=== PATIENT | female | born 1950 | race African-American/Black ===

== ENCOUNTER 2018-08-20 18:28 | Inpatient (IN) | payer OTHER ==
--- OUTSIDE RECORDS SUMMARY | 2018-08-20 18:29 | XMS REPORT | Clinical Summary ---
:1950 Author Organization [facility] Address [address] [place] [address] Phone Care Team Providers Name Role Phone Unavailable Primary Care Provider Unavailable Allergies Active Allergy Reactions Severity Noted Date Comments [place] And Derivatives 07/25/2017 Penicillins Hives 07/25/2017 Current Medications Prescription Sig. Disp. Refills Start Date End Date Status amLODIPine (NORVASC) 5 Take 1 tablet 60 tablet 0 07/29/2017 07/29/2018 MG tablet (5 mg total) by mouth 2 (two) times daily. aspirin 81 MG EC Take 1 tablet 30 tablet 0 07/29/2017 07/29/2018 tablet (81 mg total) by mouth daily. atorvastatin (LIPITOR) Take 1 tablet 30 tablet 0 07/29/2017 07/29/2018 10 MG tablet (10 mg total) by mouth nightly. carvedilol (COREG) Take 1 tablet 60 tablet 0 07/29/2017 07/29/2018 6.25 MG tablet (6.25 mg total) by mouth 2 (two) times daily. cloNIDine HCl Take 1 tablet 30 tablet 0 07/29/2017 07/29/2018 (CATAPRES) 0.1 MG (0.1 mg total) tablet by mouth every 6 (six) hours as needed (for SBP greater than 160, or DBP greater than 100). hydrALAZINE Take 1 tablet 90 tablet 0 07/29/2017 07/29/2018 (APRESOLINE) 50 MG (50 mg total) tablet by mouth every 8 (eight) hours. losartan (COZAAR) 100 Take 1 tablet 30 tablet 0 07/29/2017 07/29/2018 MG tablet (100 mg total) by mouth daily. nicotine (NICODERM CQ) Place 1 patch 28 patch 0 07/29/2017 08/28/2017 14 mg/24 hr patch onto the skin daily as needed (only give is she ask for it.) for up to 30 days. spironolactone Take 1 tablet 30 tablet 0 07/29/2017 07/29/2018 (ALDACTONE) 25 MG (25 mg total) tablet by mouth daily. 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 Mild to moderate plaque within the carotid bulbs bilaterally. 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 CT Head-07/23/2017- No acute intracranial abnormality. Mild periventricular Chronic microvascular ischemic changes. Carotid Doppler-Both proximal internal carotid arteries demonstrate soft plaquing and diffuse intimal thickening. Bilateral Lower Doppler 07/23/2017 due to Bilateral leg edema and swelling-No evidence of left or right lower extremity deep venous thrombosis. Essential (primary) hypertension 07/26/2017 Noncompliance with medications 07/26/2017 Overview: Refused to take HTN medications in past at home. Right lower lobe pneumonia (HCC) 07/26/2017 Tobacco abuse 07/26/2017 Elevated troponin 07/26/2017 Overview: Trop was 0.05. Seen by [employer] Dr. Crissy Warren--thought to be related to CVA/pneumonia. EKG normal. Echo- trace mitral and tricuspid regurgitation, normal right ventricular systolic pressure. Type 2 diabetes mellitus with circulatory disorder, without long-term 2016 current use of insulin (HCC) Family History Medical History Relation Name Comments Parkinsonism Father Diabetes Mother Relation Name Status Comments Father Mother Social History Tobacco Use Types Packs/Day Years Used Date Current Every Day Smoker 1 50 Smokeless Tobacco: Current User Tobacco Cessation: Ready to Quit: No; Counseling Given: Yes Alcohol Use Drinks/Week oz/Week Comments No Sex Assigned at Date Recorded Not on file Last Filed Vital Signs Not on file Plan of Treatment Not on file Results Not on fileafter 08/19/2017
--- OUTSIDE RECORDS SUMMARY | 2018-08-20 18:30 | XMS REPORT ---
:1950 Author Organization [facility] Address [address] [place] [address] Care Team Providers Name Role Phone KELLY AVELAR Unavailable Unavailable Problems This patient has no known problems. Allergies, Adverse Reactions, Alerts This patient has no known allergies or adverse reactions. Medications This patient has no known medications. Results Test Description Test Time Test Comments Text Results Atomic Results Result Comments POCT-GLUCOSE METER 2017-07-28 16:59:00 Test Item Value Reference Range Comments POC-GLUCOSE METER (BEAKER) (test 138 mg/dL 70-110 TESTED AT [facility] [address] [facility] [address] hjbq=2525) [facility] [address] POCT-GLUCOSE [id number] 11:48:00 Test Item Value Reference Range Comments POC-GLUCOSE METER (BEAKER) 114 mg/dL 70-110 TESTED AT [facility] [address] [facility] (test iulk=7870) WAY [facility] [address] POCT-GLUCOSE [id number] 20:55:00 Test Item Value Reference Range Comments POC-GLUCOSE METER (BEAKER) 206 mg/dL 70-110 TESTED AT [facility] [address] [facility] (test rdxp=1964) [facility] [address] POCT-GLUCOSE [id number] 17:00:00 Test Item Value Reference Range Comments POC-GLUCOSE METER (BEAKER) 270 mg/dL 70-110 TESTED AT [facility] [address] [facility] (test fkim=4395) [facility] [address] POCT-GLUCOSE [id number] 11:43:00 Test Item Value Reference Range Comments POC-GLUCOSE METER (BEAKER) 145 mg/dL 70-110 TESTED AT [facility] [address] [facility] (test xziw=1322) [facility] [address] CREATINE KINASE (CK), TOTAL AND [id number] 05:59:00 Test Item Value Reference Range Comments CREATINE KINASE TOTAL (BEAKER) (test lorh=523) 81 U/L 29-168 CREATINE KINASE-MB (BEAKER) (test fqfx=450) 1.6 ng/mL 0.0-4.9 CREATINE KINASE-MB INDEX (BEAKER) (test rbrh=821) 2.0 % CK-MB Reference Range:<5 Normal5-10 Borderline>10 AbnormalTROPONIN [id number] 05:59:00 Test Item Value Reference Range Comments TROPONIN I (BEAKER) (test bstm=972) 0.05 ng/mL 0.00-0.15 Troponin I (TnI) levels must be interpreted in the context of the presenting symptoms and the clinical findings. Elevated TnI levels indicate myocardial damage, but are not specific for ischemic heart disease. Elevated TnI levels are seen in patients with other cardiac conditions (including myocarditis and congestive heart failure), and slight TnI elevations occur in patients with other conditions, including sepsis, renal failure, acidosis, acute neurological disease, and persistent tachyarrhythmia.COMPREHENSIVE METABOLIC [id number] 05:50:00 Test Item Value Reference Range Comments TOTAL PROTEIN (BEAKER) 7.1 gm/dL 6.0-8.5 (test ponh=081) ALBUMIN (BEAKER) (test 3.4 g/dL 3.5-5.0 rnis=0439) ALKALINE PHOSPHATASE 69 U/L 30-115 (BEAKER) (test xoyj=741) BILIRUBIN TOTAL (BEAKER) 0.8 mg/dL 0.1-1.3 (test ycjn=095) SODIUM (BEAKER) (test 142 meq/L 135-148 alev=022) POTASSIUM (BEAKER) (test 3.4 meq/L 3.5-5.5 gvhy=672) CHLORIDE (BEAKER) (test 106 meq/L 98-106 kefg=124) CO2 (BEAKER) (test 24 meq/L 20-31 rvwp=027) BLOOD UREA NITROGEN 14 mg/dL 10-26 (BEAKER) (test bpwi=918) CREATININE (BEAKER) (test 1.01 mg/dL 0.50-1.20 wlms=947) GLUCOSE RANDOM (BEAKER) 135 mg/dL 70-110 (test dncl=281) CALCIUM (BEAKER) (test 9.0 mg/dL 8.5-10.5 fszd=571) AST (SGOT) (BEAKER) (test 13 U/L 5-40 kwbo=986) ALT (SGPT) (BEAKER) (test 19 U/L 6-50 yfoo=148) EGFR (BEAKER) (test mL/min/1.73 sq m INSUFFICIENT CLINICAL DATA ckeb=3030) TO CALCULATE ESTIMATED GFR. [id number] 05:49:00 Test Item Value Reference Range Comments MAGNESIUM (BEAKER) (test savh=743) 1.5 mg/dL 1.5-3.0 POCT-GLUCOSE [id number] 05:24:00 Test Item Value Reference Range Comments POC-GLUCOSE METER (BEAKER) 148 mg/dL 70-110 TESTED AT [facility] [address] [facility] (test cfdb=4621) [facility] [address] CBC W/PLT COUNT & AUTO [id number] 05:23:00 Test Item Value Reference Range Comments WHITE BLOOD CELL COUNT (BEAKER) (test vtna=205) 8.9 K/ L 4.0-10.0 RED BLOOD CELL COUNT (BEAKER) (test apdy=777) 4.46 M/ L 4.00-5.00 HEMOGLOBIN (BEAKER) (test irll=512) 12.8 GM/DL 12.0-15.0 HEMATOCRIT (BEAKER) (test bhjr=181) 38.5 % 36.0-45.0 MEAN CORPUSCULAR VOLUME (BEAKER) (test lhnu=611) 86.3 fL 82.0-99.0 MEAN CORPUSCULAR HEMOGLOBIN (BEAKER) (test 28.6 pg 27.0-33.0 hejl=522) MEAN CORPUSCULAR HEMOGLOBIN CONC (BEAKER) (test 33.2 GM/DL 32.0-36.0 utwo=293) RED CELL DISTRIBUTION WIDTH (BEAKER) (test 13.2 % 12.0-15.0 uumq=799) PLATELET COUNT (BEAKER) (test bznl=657) 243 K/CU MM 150-430 MEAN PLATELET VOLUME (BEAKER) (test ddlg=931) 9.6 fL 6.5-10.5 NUCLEATED RED BLOOD CELLS (BEAKER) (test 0 /100 WBC 0-0 ydjx=540) NEUTROPHILS RELATIVE PERCENT (BEAKER) (test 65 % vgaa=606) LYMPHOCYTES RELATIVE PERCENT (BEAKER) (test 23 % iyph=435) MONOCYTES RELATIVE PERCENT (BEAKER) (test 10 % otqb=234) EOSINOPHILS RELATIVE PERCENT (BEAKER) (test 2 % blwu=690) BASOPHILS RELATIVE PERCENT (BEAKER) (test 1 % ijkq=402) NEUTROPHILS ABSOLUTE COUNT (BEAKER) (test 5.80 K/ L 1.80-8.00 vqki=372) LYMPHOCYTES ABSOLUTE COUNT (BEAKER) (test 2.00 K/ L 1.48-4.50 qogu=846) MONOCYTES ABSOLUTE COUNT (BEAKER) (test 0.90 K/ L 0.00-1.30 iqmg=009) EOSINOPHILS ABSOLUTE COUNT (BEAKER) (test 0.10 K/ L 0.00-0.50 jltr=584) BASOPHILS ABSOLUTE COUNT (BEAKER) (test 0.10 K/ L 0.00-0.20 cfyw=703) POCT-GLUCOSE [id number] 21:22:00 Test Item Value Reference Range Comments POC-GLUCOSE METER (BEAKER) 127 mg/dL 70-110 TESTED AT [address] (test rggy=5969) [facility] [address] POCT-GLUCOSE [id number] 15:57:00 Test Item Value Reference Range Comments POC-GLUCOSE METER (BEAKER) 156 mg/dL 70-110 TESTED AT [address] (test phhj=6713) [facility] [address] POCT-GLUCOSE [id number] 12:06:00 Test Item Value Reference Range Comments POC-GLUCOSE METER (BEAKER) 109 mg/dL 70-110 TESTED AT [address] (test kkvu=4197) [facility] [address] HEMOGLOBIN [id number] 11:00:00 Test Item Value Reference Range Comments HEMOGLOBIN A1C (BEAKER) (test zoqy=298) 6.6 % 4.3-6.1 COMPREHENSIVE METABOLIC [id number] 04:45:00 Test Item Value Reference Range Comments TOTAL PROTEIN (BEAKER) 6.7 gm/dL 6.0-8.5 (test xkwj=310) ALBUMIN (BEAKER) (test 3.2 g/dL 3.5-5.0 yzbw=7813) ALKALINE PHOSPHATASE 67 U/L 30-115 (BEAKER) (test rfzt=809) BILIRUBIN TOTAL (BEAKER) 0.5 mg/dL 0.1-1.3 (test ihny=276) SODIUM (BEAKER) (test 141 meq/L 135-148 ancn=919) POTASSIUM (BEAKER) (test 3.1 meq/L 3.5-5.5 ufmx=129) CHLORIDE (BEAKER) (test 105 meq/L 98-106 qulo=686) CO2 (BEAKER) (test 25 meq/L 20-31 gvgk=825) BLOOD UREA NITROGEN 17 mg/dL 10-26 (BEAKER) (test nnpa=244) CREATININE (BEAKER) (test 1.12 mg/dL 0.50-1.20 lylb=204) GLUCOSE RANDOM (BEAKER) 117 mg/dL 70-110 (test rpxr=095) CALCIUM (BEAKER) (test 9.1 mg/dL 8.5-10.5 dyxb=895) AST (SGOT) (BEAKER) (test 11 U/L 5-40 qbng=045) ALT (SGPT) (BEAKER) (test 17 U/L 6-50 uxma=177) EGFR (BEAKER) (test mL/min/1.73 sq m INSUFFICIENT CLINICAL DATA kjmt=6147) TO CALCULATE ESTIMATED GFR. [id number] 04:43:00 Test Item Value Reference Range Comments MAGNESIUM (BEAKER) (test ojtf=932) 1.7 mg/dL 1.5-3.0 CBC W/PLT COUNT & AUTO [id number] 04:16:00 Test Item Value Reference Range Comments WHITE BLOOD CELL COUNT (BEAKER) (test ytna=638) 8.5 K/ L 4.0-10.0 RED BLOOD CELL COUNT (BEAKER) (test qlys=885) 4.49 M/ L 4.00-5.00 HEMOGLOBIN (BEAKER) (test mkbg=400) 12.8 GM/DL 12.0-15.0 HEMATOCRIT (BEAKER) (test drax=555) 38.8 % 36.0-45.0 MEAN CORPUSCULAR VOLUME (BEAKER) (test oreu=111) 86.5 fL 82.0-99.0 MEAN CORPUSCULAR HEMOGLOBIN (BEAKER) (test 28.4 pg 27.0-33.0 gmok=440) MEAN CORPUSCULAR HEMOGLOBIN CONC (BEAKER) (test 32.9 GM/DL 32.0-36.0 ftsr=959) RED CELL DISTRIBUTION WIDTH (BEAKER) (test 12.9 % 12.0-15.0 tfev=744) PLATELET COUNT (BEAKER) (test qkju=701) 232 K/CU MM 150-430 MEAN PLATELET VOLUME (BEAKER) (test ulsr=362) 9.5 fL 6.5-10.5 NUCLEATED RED BLOOD CELLS (BEAKER) (test 0 /100 WBC 0-0 rmyj=299) NEUTROPHILS RELATIVE PERCENT (BEAKER) (test 56 % qrfm=153) LYMPHOCYTES RELATIVE PERCENT (BEAKER) (test 30 % oetq=952) MONOCYTES RELATIVE PERCENT (BEAKER) (test 10 % ilwq=831) EOSINOPHILS RELATIVE PERCENT (BEAKER) (test 3 % rltg=699) BASOPHILS RELATIVE PERCENT (BEAKER) (test 1 % nbaq=373) NEUTROPHILS ABSOLUTE COUNT (BEAKER) (test 4.70 K/ L 1.80-8.00 kbwr=620) LYMPHOCYTES ABSOLUTE COUNT (BEAKER) (test 2.60 K/ L 1.48-4.50 galy=587) MONOCYTES ABSOLUTE COUNT (BEAKER) (test 0.80 K/ L 0.00-1.30 hvbd=020) EOSINOPHILS ABSOLUTE COUNT (BEAKER) (test 0.20 K/ L 0.00-0.50 nsno=380) BASOPHILS ABSOLUTE COUNT (BEAKER) (test 0.10 K/ L 0.00-0.20 nhwl=835)
[2018-08-20 19:11] LABS: Absolute Lymphocytes (CBC) 2.4 K/uL (0.7-4.9); Absolute Monocytes 0.5 K/uL (0.1-1.3); Absolute Neutrophil 2.9 K/uL (1.8-8.0); Basophils % 1.5 % (0-1.3); Eosinophils % 2.2 % (0-4.4); Hematocrit 43.1 % (36.0-45.0); Lymphocytes % 39.8 % (15.3-44.8); MCH 28.6 pg (27.0-35.0); MCV 85.6 fL (80-100); MPV 10.3 fL (7.6-11.3); Monocytes % 8.7 % (3.3-12.3); RBC Red Blood Cell Count 5.04 M/uL (3.86-4.86)
[2018-08-20 19:13] LABS: Protime INR 1.18
[2018-08-20 19:30] LABS: Albumin 3.3 g/dL (3.4-5.0); Bilirubin Direct 0.5 mg/dL (0-0.2); Magnesium 1.9 mg/dL (1.8-2.4); Potassium 3.1 mmol/L (3.5-5.1); Protein, Total 6.9 g/dL (6.4-8.2); Troponin (Emerg Dept Use Only) 0.06 ng/mL (0.0-0.045)
--- NOTE | 2018-08-20 19:35 | RAD REPORT ---
EXAM DESCRIPTION: Meli Single View08/20/2018 7:00 pm CLINICAL HISTORY: Shortness of breath COMPARISON: July 2017 FINDINGS: The lungs appear clear of acute infiltrate. The heart is borderline enlarged. Postsurgica l changes involve the chest IMPRESSION: No acute abnormalities displayed
[2018-08-20] MEDS ORDERED: FUROSEMIDE 40 MG/4 ML VIAL ONE (19:58)
[2018-08-20] MEDS ORDERED: ASPIRIN 81 MG CHEWABLE TABLET ONE (19:58)
--- NOTE | 2018-08-20 20:19 | RAD REPORT ---
EXAM DESCRIPTION: USExtrem Venous W Compress Bil08/20/2018 7:44 pm CLINICAL HISTORY: Bilateral leg swelling COMPARISON: 2017 FINDINGS: The common femoral, superficial femoral, popliteal and posterior tibial veins bilaterally are compressible and demonstrate augmentation. Doppler demonstrates good flow. IMPRESSION: No evidence of deep venous thrombosis involving either lower extremity.
--- NOTE | 2018-08-20 20:20 | EDPHYS ---
Physician Documentation [facility] Name: Amber Fischer Age: 68 yrs Sex: Female : 1950 Arrival Date: 08/20/2018 Time: 18:29 Bed 13 Private MD: Jj Woodward F ED Physician Marty Veliz HPI: 08/20 18:55 This 68 yrs old Black Female presents to ER via Wheelchair with complaints of Foot cp Swelling. 18:55 The patient has shortness of breath with light activity. cp 18:55 Onset: The symptoms/episode began/occurred gradually. Duration: The symptoms are cp continuous, and are steadily getting worse. Associated signs and symptoms: Pertinent positives: productive cough, bilateral lower extremity swelling, Pertinent negatives: chest pain, diaphoresis, fever. Severity of symptoms: in the emergency department the symptoms are unchanged. Patient reports not taking prescribed spironolactone for past several months but did take a dose today. Historical: - Allergies: 18:30 PENICILLINS; aa5 - Home Meds: 19:19 aspirin 81 mg Oral chew 1 tab once daily [Active]; Spironolactone Oral [Active]; tl2 - PMHx: 18:30 BORN WITH A HEART DEFECT; lumbar fracture; CVA; Hypertension; Fluid retention; aa5 - PSHx: 18:30 Heart Surgery; aa5 - Immunization history:: Adult Immunizations up to date. - Ebola Screening: : No symptoms or risks identified at this time. - Social history:: Smoking status: Smoking status: unknown. ROS: 19:00 Constitutional: Negative for body aches, chills, fever, poor PO intake. cp 19:00 Eyes: Negative for injury, pain, redness, and discharge. cp 19:00 ENT: Negative for drainage from ear(s), ear pain, sore throat, difficulty swallowing, difficulty handling secretions. 19:00 Cardiovascular: Positive for edema, Negative for chest pain, palpitations. 19:00 Respiratory: Positive for cough, with white sputum, dyspnea on exertion, shortness of breath, Negative for wheezing. 19:00 Abdomen/GI: Negative for abdominal pain, nausea, vomiting, and diarrhea, constipation, black/tarry stool, rectal bleeding. 19:00 Skin: Negative for cellulitis, rash. 19:00 Neuro: Negative for altered mental status, dizziness, syncope, near syncope, weakness. 19:00 All other systems are negative. Exam: 19:05 Constitutional: The patient appears in no acute distress, alert, awake, cp non-diaphoretic, non-toxic, well developed, well nourished. 19:05 Head/Face: Normocephalic, atraumatic. Eyes: Pupils equal round and reactive to light, cp extra-ocular motions intact. Lids and lashes normal. Conjunctiva and sclera are non-icteric and not injected. Cornea within normal limits. Periorbital areas with no swelling, redness, or edema. ENT: Nares patent. No nasal discharge, no septal abnormalities noted. Tympanic membranes are normal and external auditory canals are clear. Oropharynx with no redness, swelling, or masses, exudates, or evidence of obstruction, uvula midline. Mucous membranes moist. Chest/axilla: Normal chest wall appearance and motion. Nontender with no deformity. No lesions are appreciated. 19:05 Cardiovascular: Rate: normal, Rhythm: regular, Pulses: Pulses are 2+ in right radial artery and left radial artery. Edema: pedal edema, that is moderate, ankle edema, that is moderate, JVD: is not appreciated. 19:05 Respiratory: the patient does not display signs of respiratory distress, Respirations: labored breathing, is not present, intercostal retractions, are absent, splinting, is not noted, tachypnea, is not appreciated, Breath sounds: are clear throughout, no stridor, no wheezing, decreased breath sounds, that are mild, are located in both bases. 19:05 Abdomen/GI: Inspection: abdomen appears normal, Palpation: abdomen is soft and non-tender, in all quadrants. 19:05 Skin: cellulitis, is not appreciated, no rash present. 19:05 Neuro: Orientation: to person, place \T\ time. Mentation: lucid, able to follow commands, Cerebellar function: is grossly normal, Motor: moves all fours, strength is normal, Sensation: no obvious gross deficits. 19:15 ECG was reviewed by the Attending Physician. cp Vital Signs: 18:32 BP 197 / 84; Pulse 76; Resp 20 S; Pulse Ox 100% on R/A; aa5 20:43 BP 193 / 95; Pulse 66; Resp 18; Pulse Ox 99% on R/A; tl2 21:53 BP 186 / 89; Pulse 72; Resp 18; Pulse Ox 98% on R/A; tl2 MDM: 18:40 Patient medically screened. cp 19:00 Differential diagnosis: CHF exacerbation, Chronic Obstructive Pulmonary Disease cp pulmonary edema, Pulmonary Embolism Unstable Angina DVT. 20:00 Data reviewed: vital signs, nurses notes, lab test result(s), EKG, radiologic studies, cp plain films, ultrasound, and as a result, I will admit patient. 20:04 Physician consultation: Jj Woodward MD was called at 20:05, was contacted at 20:05, regarding admission, to the telemetry unit. patient's condition. 08/20 18:50 Order name: Basic Metabolic Panel; Complete Time: 19:43 cp 08/20 20:11 Interpretation: Normal except: K 3.1; CL 109; GLUC 133; CRE 1.50; GFR 42. cp 08/20 18:50 Order name: CBC with Diff; Complete Time: 19:43 cp 08/20 20:32 Interpretation: Normal except: RBC 5.04; RDW 15.3; BASO% 1.5. cp 08/20 18:50 Order name: LFT's; Complete Time: 19:43 cp 08/20 20:32 Interpretation: Normal except: BILID 0.5; ALB 3.3; GLOB 3.6; A/G 0.9. cp 08/20 18:50 Order name: Magnesium; Complete Time: 19:43 cp 08/20 18:50 Order name: NT PRO-BNP; Complete Time: 19:43 cp 08/20 20:11 Interpretation: Abnormal: NT PRO-BNP 46906. cp 08/20 18:50 Order name: PT-INR; Complete Time: 19:43 cp 08/20 18:50 Order name: Troponin (emerg Dept Use Only); Complete Time: 19:43 cp 08/20 20:33 Interpretation: Abnormal: TROPED 0.06. cp 08/20 20:26 Order name: Basic Metabolic Panel EDMS 08/20 20:26 Order name: Basic Metabolic Panel EDMS 08/20 20:26 Order name: CBC with Automated Diff EDMS 08/20 20:26 Order name: CBC with Automated Diff EDMS 08/20 20:26 Order name: NT PRO-BNP EDMS 08/20 20:26 Order name: NT PRO-BNP EDMS 08/20 20:26 Order name: Troponin I EDMS 08/20 18:50 Order name: US Extremity Venous W Compression [place]; Complete Time: 20:32 cp 08/20 20:32 Interpretation: Report reviewed. cp 08/20 18:50 Order name: XRAY Chest (1 view); Complete Time: 19:43 cp 08/20 18:50 Order name: EKG; Complete Time: 18:51 cp 08/20 18:50 Order name: Cardiac monitoring; Complete Time: 19:15 cp 08/20 18:50 Order name: EKG - Nurse/Tech; Complete Time: 19:15 cp 08/20 18:50 Order name: IV Saline Lock; Complete Time: 19:15 cp 08/20 18:50 Order name: Labs collected and sent; Complete Time: 19:15 cp 08/20 20:26 Order name: Low Sodium EDTN 08/20 20:26 Order name: EKG Electrocardiogram EDTN 08/20 20:26 Order name: EKG Electrocardiogram EDTN 08/20 20:26 Order name: Troponin I EDTN 08/20 20:26 Order name: Troponin I EDTN 08/20 18:50 Order name: O2 Per Protocol; Complete Time: 19:15 cp 08/20 18:50 Order name: O2 Sat Monitoring; Complete Time: 19:15 cp EC:15 Rate is 63 beats/min. IL interval is normal. QRS interval is normal. QT interval is cp normal. T waves are Inverted in leads I, aVL, V4, V5, V6. Interpreted by me. Reviewed by me. Administered Medications: 20:17 Drug: Aspirin Chewable Tablet 324 mg Route: PO; tl2 21:54 Follow up: Response: No adverse reaction tl2 20:17 Drug: Lasix 40 mg Route: IVP; Site: right antecubital; tl2 21:54 Follow up: Response: No adverse reaction; Marked relief of symptoms tl2 20:34 Drug: Lovenox 40 mg Route: Sub-Q; Site: right lower abdomen; tl2 21:54 Follow up: Response: No adverse reaction tl2 20:35 Drug: Potassium Effervescent Tablet 50 mEq Route: PO; tl2 21:55 Follow up: Response: No adverse reaction tl2 Disposition: 08/21 09:21 Co-signature as Attending Physician, Marty Veliz MD I agree with the assessment and kdr plan of care. Disposition: 08/20/18 20:18 Hospitalization ordered by Jj Woodward for Observation. Preliminary diagnosis is Unspecified combined systolic (congestive) and diastolic (congestive) heart failure. - Bed requested for Telemetry/MedSurg (observation). - Status is Observation. tl2 - Condition is Stable. - Problem is an acute exacerbation. - Symptoms have improved. UTI on Admission? No Signatures: Dispatcher [employer] EDMS Cat Davis RN RN Marty De La Garza MD MD [facility] Vernell Manning RN RN aa5 Drake Chou PA PA Dipti Kelsey RN RN tl2 Corrections: (The following items were deleted from the chart) 08/20 21:04 20:18 Hospitalization Ordered by Jj Woodward MD for Observation. Preliminary kl diagnosis is Unspecified combined systolic (congestive) and diastolic (congestive) heart failure. Bed requested for Telemetry/MedSurg (observation). Status is Observation. Condition is Stable. Problem is an acute exacerbation. Symptoms have improved. UTI on Admission? No. cp 21:56 21:04 08/20/2018 20:18 Hospitalization Ordered by Jj Woodward MD for Observation. tl2 Preliminary diagnosis is Unspecified combined systolic (congestive) and diastolic (congestive) heart failure. Bed requested for Telemetry/MedSurg (observation). Status is Observation. Condition is Stable. Problem is an acute exacerbation. Symptoms have improved. UTI on Admission? No. kl
--- NOTE | 2018-08-20 20:20 | ER ---
Nurse's Notes [facility] Name: Amber Fischer Age: 68 yrs Sex: Female : 1950 Arrival Date: 08/20/2018 Time: 18:29 Bed 13 Private MD: Jj Woodward F Diagnosis: Unspecified combined systolic (congestive) and diastolic (congestive) heart failure Presentation: 08/20 18:30 Presenting complaint: Patient states: "I haven't taken my spironolactone since January and my legs started getting swollen yesterday". Pt states "I took a spironolactone pill right before coming in". Pt also reports SOB. 18:30 Transition of care: patient was not received from another setting of care. Onset of aa5 symptoms was 2017. Risk Assessment: Do you want to hurt yourself or someone else? Patient reports no desire to harm self or others. Initial Sepsis Screen: Does the patient meet any 2 criteria? No. Patient's initial sepsis screen is negative. Does the patient have a suspected source of infection? No. Patient's initial sepsis screen is negative. Care prior to arrival: None. 18:30 Method Of Arrival: Wheelchair aa5 18:30 Acuity: LUZ MARIA 3 aa5 Triage Assessment: 19:16 General: Appears in no apparent distress. uncomfortable, Behavior is calm, cooperative, tl2 appropriate for age. Pain: Complains of pain in right leg and left leg. Neuro: Level of Consciousness is awake, alert, obeys commands, Oriented to person, place, time, situation. Cardiovascular: Denies chest pain. Cardiovascular: Patient's skin is warm and dry. Edema is 3+ to left ankle, left foot, right ankle and right foot Rhythm is sinus rhythm. Respiratory: Reports shortness of breath cough that is productive, Airway is patent Respiratory effort is even, unlabored, Respiratory pattern is regular, symmetrical, Breath sounds are coarse bilaterally. GI: No signs and/or symptoms were reported involving the gastrointestinal system. : No signs and/or symptoms were reported regarding the genitourinary system. Derm: Skin is normal. Historical: - Allergies: 18:30 PENICILLINS; aa5 - Home Meds: 19:19 aspirin 81 mg Oral chew 1 tab once daily [Active]; Spironolactone Oral [Active]; tl2 - PMHx: 18:30 BORN WITH A HEART DEFECT; lumbar fracture; CVA; Hypertension; Fluid retention; aa5 - PSHx: 18:30 Heart Surgery; aa5 - Immunization history:: Adult Immunizations up to date. - Ebola Screening: : No symptoms or risks identified at this time. - Social history:: Smoking status: Smoking status: unknown. Screenin:15 Abuse screen: Denies threats or abuse. Nutritional screening: No deficits noted. tl2 Tuberculosis screening: No symptoms or risk factors identified. Fall Risk Secondary diagnosis (15 points) IV access (20 points). Assessment: 19:15 General: see triage assessment. tl2 20:44 Reassessment: Patient appears in no apparent distress at this time. Patient and/or tl2 family updated on plan of care and expected duration. Pain level reassessed. Patient is alert, oriented x 3, equal unlabored respirations, skin warm/dry/pink. 21:27 Reassessment: report given to Demetrius HOLGUIN. jd3 Vital Signs: 18:32 BP 197 / 84; Pulse 76; Resp 20 S; Pulse Ox 100% on R/A; aa5 20:43 BP 193 / 95; Pulse 66; Resp 18; Pulse Ox 99% on R/A; tl2 21:53 BP 186 / 89; Pulse 72; Resp 18; Pulse Ox 98% on R/A; tl2 ED Course: 18:29 Patient arrived in ED. ds1 18:29 Jj Woodward MD is Private Physician. ds1 18:30 Arm band placed on Patient placed in an exam room, on a stretcher. aa5 18:40 Drake Chou PA is PHCP. cp 18:40 Marty Veliz MD is Attending Physician. cp 18:41 Triage completed. aa5 18:59 X-ray completed. Portable x-ray completed in exam room. Patient tolerated procedure bb2 well. 18:59 Initial lab(s) drawn, by me, sent to lab. Inserted saline lock: 20 gauge in right jl7 antecubital area, using aseptic technique. Blood collected. 19:00 XRAY Chest (1 view) In Process Unspecified. EDMS 19:15 Dipti Pinedo RN is Primary Nurse. tl2 19:15 Patient has correct armband on for positive identification. Placed in gown. Bed in low tl2 position. Call light in reach. Side rails up X 1. Adult w/ patient. 19:16 EKG completed in triage. Results shown to . tl2 19:44 US Extremity Venous W Compression [place] In Process Unspecified. EDMS 20:17 Jj Woodward MD is Hospitalizing Provider. cp 21:53 No provider procedures requiring assistance completed. Patient admitted, IV remains in tl2 place. Administered Medications: 20:17 Drug: Aspirin Chewable Tablet 324 mg Route: PO; tl2 21:54 Follow up: Response: No adverse reaction tl2 20:17 Drug: Lasix 40 mg Route: IVP; Site: right antecubital; tl2 21:54 Follow up: Response: No adverse reaction; Marked relief of symptoms tl2 20:34 Drug: Lovenox 40 mg Route: Sub-Q; Site: right lower abdomen; tl2 21:54 Follow up: Response: No adverse reaction tl2 20:35 Drug: Potassium Effervescent Tablet 50 mEq Route: PO; tl2 21:55 Follow up: Response: No adverse reaction tl2 Outcome: 20:18 Decision to Hospitalize by Provider. cp 21:27 Admitted to Tele accompanied by tech, via stretcher, room 426, with chart, Report jd3 called to Demetrius RN 21:53 Condition: stable tl2 21:56 Patient left the ED. tl2 Signatures: Dispatcher [employer] EDOK Jaclyn Mishra ds1 Vernell Manning, RN RN aa5 Drake Chou PA PA cp Dipti Pinedo RN RN tl2 Angela Domínguez RN RN jl7 Israel Henderson RN RN jd3 Tali Lerma bb2
[2018-08-20] MEDS ORDERED: POTASSIUM 25 MEQ EFFERV TAB ONE (20:30)
[2018-08-20] MEDS ORDERED: ENOXAPARIN 40 MG/0.4 ML SQ ONE (20:30)
[2018-08-20] MEDS: HYDRALAZINE HCL 20 MG/ML VIAL IV PRN (23:25)
[2018-08-21 00:44] LABS: Urine Appearance CLEAR; Urine Bilirubin NEGATIVE (NEG); Urine Blood NEGATIVE (NEG); Urine Color YELLOW; Urine Glucose NEGATIVE (NEG); Urine Protein NEGATIVE (NEG); Urine pH 6.5 (5.0-7.0)
[2018-08-21 00:48] LABS: Urine Microscopic Reflex NO UMIC
[2018-08-21] MEDS: HYDRALAZINE HCL 20 MG/ML VIAL IV PRN ×3 (04:00→18:03)
[2018-08-21 05:42] LABS: Absolute Lymphocytes (CBC) 2.4 K/uL (0.7-4.9); Absolute Monocytes 0.6 K/uL (0.1-1.3); Absolute Neutrophil 2.2 K/uL (1.8-8.0); Basophils % 1.3 % (0-1.3); Eosinophils % 4.1 % (0-4.4); Hematocrit 38.7 % (36.0-45.0); Lymphocytes % 43.8 % (15.3-44.8); MCH 29.2 pg (27.0-35.0); MCV 84.7 fL (80-100); MPV 10.5 fL (7.6-11.3); Monocytes % 11.1 % (3.3-12.3); RBC Red Blood Cell Count 4.57 M/uL (3.86-4.86)
[2018-08-21 06:14] LABS: Potassium 3.3 mmol/L (3.5-5.1)
[2018-08-21] MEDS ORDERED: POTASSIUM CL SA 10 MEQ TAB PO ONE ×2 (07:00→18:48)
[2018-08-21] MEDS ORDERED: FUROSEMIDE 20 MG/ 2ML VIAL IV SCH (09:00)
[2018-08-21] MEDS: ENOXAPARIN 40 MG/0.4 ML SQ SCH (16:30)
[2018-08-21] MEDS: FUROSEMIDE 20 MG/ 2ML VIAL IV SCH (16:30)
[2018-08-21] MEDS: ACETAMINOPHEN 500 MG TAB PO PRN (20:29)
--- NOTE | 2018-08-22 01:22 | HP ---
Date of Admission: 08/21/2018 History Of Present Illness: A 68-year-old female with history of hypertension and remote history of congenital heart defect with surgery, for which congestive heart failure diagnosis was given; however , no documentation at this time on this. The patient has not been taking any of her medications incl uding spironolactone for about 3 to 4 weeks. She could not buy them; started having leg swelling; an d then now started feeling weak, fatigued, and short of breath; but mainly tired. So, she came to ergency room and was found to be in diastolic congestive failure exacerbation and was admitted for at. The patient had mild nausea, but no vomiting, no chest pain, and voiced no other complaints. Review of Systems: Cardiovascular: No chest pain. No palpitation. Respiratory: As above. Genitourinary: No complaint. Gastrointestinal: As above. Otherwise, no complaint. Neurological: No complaint. Past Medical History: 1.As above. 2.Hypertension. Social History: Denies smoking, alcohol, or drug abuse history. Family History: Noncontributory. Medications: Spironolactone. Dosage at this time is not known. The patient is on clonidine 1 mg b. i.d. and on losartan 100 mg p.o. daily. However, she has not been taking any of her medicines. Allergies: NICOTINE AND PENICILLIN. Physical Examination: Vital Signs: Blood pressure 167/70, pulse 67, and temperature 98. Heart: Regular rate and rhythm. Chest: Clear to auscultation. Abdomen: Soft, nontender. Bowel sounds are normoactive. Extremities: 1 to 2+ bilateral pedal and tibial edema, pitting. Neurological: Alert, oriented, nonfocal. Grossly intact. Imaging: Chest x-ray; no acute pathology. Extremity venous study; no DVT. Laboratory Data: CBC noted no anemia and no increased white cell. Chemistry: Sodium was 144, now 1 47 after diuresis. Potassium 3.3, chloride 110, BUN 17. Creatinine 1.2, but was 1.50. GFR 54. BNP 9247. Troponin 0.06. Assessment And Plan: 1.Clinical picture with her history points to diastolic heart failure. The patient had cardiac echo cardiogram a year ago, which showed an ejection fraction of the left ventricle to be about 60%. We w ill go ahead and repeat an echocardiogram. The patient has been started on IV Lasix 40 mg b.i.d., on ow-salt diet, and we will monitor. 2.Hypertension. We will put the patient back on her home medications, and she was put on hydralazin e 10 mg IV q.4 hours p.r.n. 3.Hypokalemia with diuresis. We will reinstitute the patient's spironolactone, and also we will put her on electrolyte protocol. 4.Mild hypernatremia with diuresis. We will monitor that. Look orders for details. MFS/MODL Voice ID: [id number]
[2018-08-22] MEDS: HYDRALAZINE HCL 20 MG/ML VIAL IV PRN ×2 (01:23→10:52)
[2018-08-22 06:15] LABS: Absolute Lymphocytes (CBC) 1.9 K/uL (0.7-4.9); Absolute Neutrophil 5.9 K/uL (1.8-8.0); Basophils % 0.9 % (0-1.3); Eosinophils % 1.2 % (0-4.4); Hematocrit 42.6 % (36.0-45.0); Lymphocytes % 20.8 % (15.3-44.8); MCH 28.9 pg (27.0-35.0); MCV 84.8 fL (80-100); MPV 10.5 fL (7.6-11.3); Monocytes % 11.4 % (3.3-12.3); RBC Red Blood Cell Count 5.03 M/uL (3.86-4.86)
[2018-08-22 06:33] LABS: Potassium 3.6 mmol/L (3.5-5.1)
[2018-08-22] MEDS: SPIRONOLACTONE 25 MG TABLET PO SCH (08:29)
[2018-08-22] MEDS: LOSARTAN POTASSIUM 50 MG TABLET PO SCH (08:29)
[2018-08-22] MEDS: ASPIRIN 81 MG CHEWABLE TABLET PO SCH (08:30)
[2018-08-22] MEDS: FUROSEMIDE 20 MG/ 2ML VIAL IV SCH ×2 (08:30→17:52)
[2018-08-22] MEDS ORDERED: POTASSIUM 25 MEQ EFFERV TAB PO ONE (09:00)
--- NOTE | 2018-08-22 11:01 | EKG ---
Test Date: 2018-08-20 Test Time: 19:08:33 Soils Technician: MARLA MEASUREMENT RESULTS: Intervals: Rate: 63 MO: 166 QRSD: 96 QT: 406 QTc: 415 [place]: P: 71 MO: 166 QRS: 66 T: 180 INTERPRETIVE STATEMENTS: Normal sinus rhythm Possible Left atrial enlargement T wave abnormality, consider inferolateral ischemia Abnormal ECG Compared to ECG 07/30/2017 16:34:06 Possible ischemia now present T-wave abnormality still present Electronically Signed On 08-22-18 10:56:09 CDT by Js Cody
[2018-08-22] MEDS: AMLODIPINE 5 MG TAB PO SCH (12:18)
[2018-08-22] MEDS: BENZONATATE 100 MG CAP PO PRN ×2 (12:18→22:40)
[2018-08-22] MEDS: ENOXAPARIN 40 MG/0.4 ML SQ SCH (17:53)
--- NOTE | 2018-08-22 23:28 | PN ---
Subjective: The patient is feeling much better. Her shortness of breath has markedly improved. Hav e no new complaints. Objective: Vital Signs: Blood pressure 180/60, pulse 70, temperature 98.5. Heart: Regular rate and rhythm. Chest: Clear to auscultation. Abdomen: Soft, benign. Bowel sounds are active. Extremities: No edema or cyanosis. Peripheral pulses are felt. Neurological: Alert, oriented, nonfocal. Grossly intact. Laboratory Data: CBC: Hemoglobin 14.5, hematocrit 42.6, platelets 193. Chemistry: BUN 17, creatin ine 1.2. BNP dropped down to 7609. Assessment And Plan: 1.Diastolic dysfunction. The patient's symptoms markedly improved. We will continue IV Lasix diure sis. 2.Hypertension. The patient is on hydralazine p.r.n. and we will go ahead and add for her amlodipin e 5 mg p.o. daily for better control. Continue aggressive and current treatment. Look orders for de tails. MFS/MODL Voice ID: [id number] Report ID: [id number]
--- NOTE | 2018-08-22 23:29 | CON ---
Admitted to Dr. Woodward's service on 08/21/2018 because of edema, was found to have elevated troponin . History Of Present Illness: Ms. Fischer is a 68-year-old woman. She has a history of cerebrovascula r accident, cardiac surgery for congenital heart disease, unknown details. History of hypertension a nd edema. Came in with her main complaint being edema, she was not really having a chest pain, has s hortness of breath, but no nausea, vomiting, diaphoresis, PND, orthopnea, palpitation, or syncope. H er troponin is 0.06 with last blood pressure was 217/73. Her BNP was 7609. Chest x-ray is negative. Venous Doppler of the legs is negative. Her creatinine was initially 1.5, now is 1.2. She is asym ptomatic now and the edema has resolved. Allergies: SHE IS ALLERGIC TO NICOTINE AND PENICILLIN. Review of Systems: Negative. Social History: Negative. Family History: Father with hypertension. Medication: At home, include aspirin and Aldactone. Physical Examination: HEENT: Negative. Neck: Supple without any bruit. Chest: Clear to auscultation. Cardiac: Revealed a regular rhythm and rate with an S4 gallops. No murmurs or rubs. Abdomen: Benign. Extremities: Revealed no clubbing, cyanosis. She had trace edema. Diagnostic Data: As stated earlier. EKG showed LVH. Impression And Plan: 1.Probable acute exacerbation of chronic diastolic congestive heart failure. 2.Edema and elevated troponin secondary to congestive heart failure. 3.Hypertension, very poorly controlled. 4.Renal insufficiency. 5.History of congenital heart disease, status post surgery. I would like very much for her to have an echocardiogram to see what her congenital heart disease was possibly. I think we need to be more aggressive with her blood pressure. She may be a good candidate for hydrochlorothiazide and Norvasc. may be reasonable as well. I will discuss the case further with Dr. Woodward. She can g o home whenever it is okay with him. Regarding her stress test and elevated troponin, I think once h er blood pressure is reasonable, we should consider an outpatient stress test. ADAM/DONAL Voice ID: [id number] Report ID: [id number]
[2018-08-23] MEDS: HYDRALAZINE HCL 20 MG/ML VIAL IV PRN ×3 (00:22→18:18)
[2018-08-23 06:10] LABS: Magnesium 1.8 mg/dL (1.8-2.4); Phosphorus 3.2 mg/dL (2.5-4.9); Potassium 3.7 mmol/L (3.5-5.1)
[2018-08-23 07:08] VITALS: BMI 31.9
[2018-08-23] MEDS: FUROSEMIDE 20 MG/ 2ML VIAL IV SCH ×2 (08:30→18:18)
[2018-08-23] MEDS: AMLODIPINE 5 MG TAB PO SCH (08:30)
[2018-08-23] MEDS: SPIRONOLACTONE 25 MG TABLET PO SCH (08:31)
[2018-08-23] MEDS: LOSARTAN POTASSIUM 50 MG TABLET PO SCH (08:31)
[2018-08-23] MEDS: BENZONATATE 100 MG CAP PO PRN ×2 (08:31→20:55)
[2018-08-23] MEDS: ASPIRIN 81 MG CHEWABLE TABLET PO SCH (08:32)
[2018-08-23] MEDS ORDERED: POTASSIUM 25 MEQ EFFERV TAB PO ONE (09:00)
[2018-08-23] MEDS ORDERED: MAGNESIUM SULFATE 1 gm IVPB 1 GM/100 ML BAG IV ONE (09:00)
[2018-08-23 17:12] VITALS: O2SAT 96
--- NOTE | 2018-08-23 17:16 | PN ---
Subjective: Patient has no increased shortness of breath, feeling otherwise well. No chest pain. Objective: Vital Signs: Blood pressure 173/61, pulse 70, temperature 98.5. Heart: Regular rate and rhythm. Chest: Clear to auscultation. Abdomen: Soft, benign. Neurological: Alert, oriented. Grossly intact. Extremities: Bilateral trace pedal and tibial edema. Assessment And Plan: Diastolic dysfunction. With diuresis, patient has improved. Appreciate Cardio logy input. We will go ahead and order the echo. Continue the patient on her current medications. Expect better control of blood pressure with the addition of amlodipine. Pending on echo results claudette t will be done tomorrow, I think patient will be ready to be discharged and follow up with [facility] as per them. Look orders for details. MFS/MODL Voice ID: [id number] Report ID: [id number]
[2018-08-23] MEDS: ENOXAPARIN 40 MG/0.4 ML SQ SCH (18:18)
[2018-08-23] MEDS: ACETAMINOPHEN 500 MG TAB PO PRN (20:54)
[2018-08-24] MEDS: ACETAMINOPHEN 500 MG TAB PO PRN (03:49)
[2018-08-24 05:53] LABS: Magnesium 2.2 mg/dL (1.8-2.4); Potassium 4.3 mmol/L (3.5-5.1)
--- NOTE | 2018-08-24 08:02 | ECHO ---
HEIGHT: 5 ft 4 in WEIGHT: 186 lb 3.2 oz DATE OF STUDY: 08/21/[address]: Drake Chou PAC 2-DIMENSIONAL: YES M.MODE: YES DOPPLER: YES COLOR FLOW: YES TDS: NO PORTABLE: NO DEFINITY: NO BUBBLE STUDY: NO DIAGNOSIS: CONGESTIVE HEART FAILURE CARDIAC HISTORY: CATHERIZATION: NO SURGERY: YES PROSTHETIC VALVE: NO PACEMAKER: NO MEASUREMENTS (cm) DIASTOLIC (NORMALS) SYSTOLIC (NORMALS) IVSd 0.8 (0.6-1.2) LA Diam 4.0 (1.9-4.0) LVEF 58% LVIDd 5.0 (3.5-5.7) LVIDs 3.5 (2.0-3.5) %FS 30% LVPWd 1.1 (0.6-1.2) Ao Diam 2.6 (2.0-3.7) 2 DIMENSIONAL ASSESSMENT: RIGHT ATRIUM: NORMAL LEFT ATRIUM: NORMAL RIGHT VENTRICLE: NORMAL LEFT VENTRICLE: NORMAL TRICUSPID VALVE: NORMAL MITRAL VALVE: NORMAL PULMONIC VALVE: NORMAL AORTIC VALVE: NORMAL PERICARDIAL EFFUSION: NONE AORTIC ROOT: NORMAL LEFT VENTRICULAR WALL MOTION: NORMAL DOPPLER/COLOR FLOW: MILD TRICUPSID REGURGITATION. COMMENTS: MILD TRICUPSID REGURGITATION. NORMAL LEFT VENTRICULAR SIZE AND FUNCTION. NO WALL MOTION ABNORMALITY. NO EFFUSION. TECHNOLOGIST: Tawanna JOHNSON
[2018-08-24] MEDS: SPIRONOLACTONE 25 MG TABLET PO SCH (09:04)
[2018-08-24] MEDS: FUROSEMIDE 20 MG/ 2ML VIAL IV SCH (09:04)
[2018-08-24] MEDS: ASPIRIN 81 MG CHEWABLE TABLET PO SCH (09:04)
[2018-08-24] MEDS: AMLODIPINE 5 MG TAB PO SCH (09:04)
[2018-08-24] MEDS: LOSARTAN POTASSIUM 50 MG TABLET PO SCH (09:04)
[2018-08-24 12:18] VITALS: BP 160/65; TEMP 97.9
== END 2018-08-24 12:40 | disposition home or self-care (01) | DRG 292 ==
LOC: ER 18:28 → ERHOLD 20:21 → 4TH 21:17 → OBSVTOIN 08-21 14:27
PROVIDERS: ADMIT Internal Medicine; ATTEND Internal Medicine
DX: I11.0 Hypertensive heart disease with heart failure (principal); E87.0 Hyperosmolality and hypernatremia; I50.33 Acute on chronic diastolic (congestive) heart failure; E87.6 Hypokalemia; Z86.73 Personal history of transient ischemic attack (TIA), and cerebral infarction without residual deficits; Z88.0 Allergy status to penicillin
CPT/HCPCS: 36415; 71045; 80048; 80076; 81003; 82962; 83735; 83880; 84100; 84132; 84484; 85025; 85610; 87070; 87077; 87086; 87088; 87186; 87205; 93005; 93306; 93970; 96372; 96374; 99285; G0378; J0360; J1650; J1940; J3475

== ENCOUNTER 2020-03-22 14:10 | Emergency (ER) | payer OTHER ==
--- OUTSIDE RECORDS SUMMARY | 2020-03-22 14:13 | XMS REPORT ---
:1950 Author Organization [facility] t Address [address] [place] [address] Care Team Providers Name Role Phone AZIZ Unavailable Unavailable Problems This patient has no known problems. Allergies, Adverse Reactions, Alerts This patient has no known allergies or adverse reactions. Medications This patient has no known medications. Results Test Description Test Time Test Comments Text Results Atomic Results Result Comments POCT-GLUCOSE METER 2017-07-28 16:59:00 Test Item Value Reference Range Comments POC-GLUCOSE METER (BEAKER) (test 138 mg/dL 70-110 TESTED AT [facility] [address] code = 1538) [facility] [address] POCT-GLUCOSE [id number] 11:48:00 Test Item Value Reference Range Comments POC-GLUCOSE METER (BEAKER) 114 mg/dL 70-110 TESTE D AT [facility] [address] [facility] (test code = 1538) WAY [facility] [address] POCT-GLUCOSE [id number] 20:55:00 Test Item Value Reference Range Comments POC-GLUCOSE METER (BEAKER) 206 mg/dL 70-110 TESTE D AT [facility] [address] [facility] (test code = 1538) WAY [facility] [address] POCT-GLUCOSE [id number] 17:00:00 Test Item Value Reference Range Comments POC-GLUCOSE METER (BEAKER) 270 mg/dL 70-110 TESTE D AT [facility] [address] [facility] (test code = 1538) WAY [facility] [address] POCT-GLUCOSE [id number] 11:43:00 Test Item Value Reference Range Comments POC-GLUCOSE METER (BEAKER) 145 mg/dL 70-110 TESTE D AT [facility] [address] [facility] (test code = 1538) WAY [facility] [address] CREATINE KINASE (CK), TOTAL AND [id number] 05:59:00 Test Item Value Reference Range Comments CREATINE KINASE TOTAL (BEAKER) (test code = 380) 81 U/L 29-168 CREATINE KINASE-MB (BEAKER) (test code = 750) 1.6 ng/mL 0. 0-4.9 CREATINE KINASE-MB INDEX (BEAKER) (test code = 2.0 % 395) CK-MB Reference Range:<5 Normal5-10 Borderline>10 AbnormalTROPONIN I 2017-07-27 05:59:00 Test Item Value Reference Range Comments TROPONIN I (BEAKER) (test code = 397) 0.05 ng/mL 0.00-0.15 Troponin I (TnI) levels [...] acute neurological disease, and persistent tachyarrhythmia.COMPREHENSIVE METABOLIC [id number] 05:50:00 Test Item Value Reference Range Comments TOTAL PROTEIN (BEAKER) 7.1 gm/dL 6.0-8.5 (test code = 770) ALBUMIN (BEAKER) (test 3.4 g/dL 3.5-5.0 code = 1145) ALKALINE PHOSPHATASE 69 U/L 30-115 (BEAKER) (test code = 346) BILIRUBIN TOTAL (BEAKER) 0.8 mg/dL 0.1-1.3 (test code = 377) SODIUM (BEAKER) (test 142 meq/L 135-148 code = 381) POTASSIUM (BEAKER) (test 3.4 meq/L 3.5-5.5 code = 379) CHLORIDE (BEAKER) (test 106 meq/L 98-106 code = 382) CO2 (BEAKER) (test code = 24 meq/L 20-31 355) BLOOD UREA NITROGEN 14 mg/dL 10-26 (BEAKER) (test code = 354) CREATININE (BEAKER) (test 1.01 mg/dL 0.50-1.20 code = 358) GLUCOSE RANDOM (BEAKER) 135 mg/dL 70-110 (test code = 652) CALCIUM (BEAKER) (test 9.0 mg/dL 8.5-10.5 code = 697) AST (SGOT) (BEAKER) (test 13 U/L 5-40 code = 353) ALT (SGPT) (BEAKER) (test 19 U/L 6-50 code = 347) EGFR (BEAKER) (test code mL/min/1.73 sq m INSUF FICIENT CLINICAL DATA = 1092) TO CALCULATE EST IMATED GFR. [id number] 05:49:00 Test Item Value Reference Range Comments MAGNESIUM (BEAKER) (test code = 627) 1.5 mg/dL 1.5-3.0 POCT-GLUCOSE [id number] 05:24:00 Test Item Value Reference Range Comments POC-GLUCOSE METER (BEAKER) 148 mg/dL 70-110 TESTE D AT [facility] [address] [facility] (test code = 1538) WAY [facility] [place] [address] CBC W/PLT COUNT & AUTO [id number] 05:23:00 Test Item Value Reference Range Comments WHITE BLOOD CELL COUNT (BEAKER) (test code = 8.9 K/ L 4.0 -10.0 775) RED BLOOD CELL COUNT (BEAKER) (test code = 761) 4.46 M/ L 4.00-5.00 HEMOGLOBIN (BEAKER) (test code = 410) 12.8 GM/DL 12.0-15.0 HEMATOCRIT (BEAKER) (test code = 411) 38.5 % 36.0-45.0 MEAN CORPUSCULAR VOLUME (BEAKER) (test code = 86.3 fL 82 .0-99.0 753) MEAN CORPUSCULAR HEMOGLOBIN (BEAKER) (test code 28.6 pg 27.0-33.0 = 751) MEAN CORPUSCULAR HEMOGLOBIN CONC (BEAKER) (test 33.2 GM/DL 32.0-36.0 code = 752) RED CELL DISTRIBUTION WIDTH (BEAKER) (test code 13.2 % 12.0-15.0 = 412) PLATELET COUNT (BEAKER) (test code = 756) 243 K/CU MM 150-43 0 MEAN PLATELET VOLUME (BEAKER) (test code = 754) 9.6 fL 6.5-10.5 NUCLEATED RED BLOOD CELLS (BEAKER) (test code = 0 /100 WBC 0-0 413) NEUTROPHILS RELATIVE PERCENT (BEAKER) (test code 65 % = 429) LYMPHOCYTES RELATIVE PERCENT (BEAKER) (test code 23 % = 430) MONOCYTES RELATIVE PERCENT (BEAKER) (test code = 10 % 431) EOSINOPHILS RELATIVE PERCENT (BEAKER) (test code 2 % = 432) BASOPHILS RELATIVE PERCENT (BEAKER) (test code = 1 % 437) NEUTROPHILS ABSOLUTE COUNT (BEAKER) (test code = 5.80 K/ L 1.80-8.00 670) LYMPHOCYTES ABSOLUTE COUNT (BEAKER) (test code = 2.00 K/ L 1.48-4.50 414) MONOCYTES ABSOLUTE COUNT (BEAKER) (test code = 0.90 K/ L 0 .00-1.30 415) EOSINOPHILS ABSOLUTE COUNT (BEAKER) (test code = 0.10 K/ L 0.00-0.50 416) BASOPHILS ABSOLUTE COUNT (BEAKER) (test code = 0.10 K/ L 0 .00-0.20 417) POCT-GLUCOSE [id number] 21:22:00 Test Item Value Reference Range Comments POC-GLUCOSE METER (BEAKER) 127 mg/dL 70-110 TESTE D AT [facility] [id number] [place] [address] (test code = 1538) WAY [facility] [address] POCT-GLUCOSE [id number] 15:57:00 Test Item Value Reference Range Comments POC-GLUCOSE METER (BEAKER) 156 mg/dL 70-110 TESTE D AT [facility] [id number] [place] [address] (test code = 1538) WAY [facility] [address] POCT-GLUCOSE [id number] 12:06:00 Test Item Value Reference Range Comments POC-GLUCOSE METER (BEAKER) 109 mg/dL 70-110 TESTE D AT [facility] [id number] [place] [address] (test code = 1538) [facility] [address] HEMOGLOBIN [id number] 11:00:00 Test Item Value Reference Range Comments HEMOGLOBIN A1C (BEAKER) (test code = 368) 6.6 % 4.3-6. 1 COMPREHENSIVE METABOLIC [id number] 04:45:00 Test Item Value Reference Range Comments TOTAL PROTEIN (BEAKER) 6.7 gm/dL 6.0-8.5 (test code = 770) ALBUMIN (BEAKER) (test 3.2 g/dL 3.5-5.0 code = 1145) ALKALINE PHOSPHATASE 67 U/L 30-115 (BEAKER) (test code = 346) BILIRUBIN TOTAL (BEAKER) 0.5 mg/dL 0.1-1.3 (test code = 377) SODIUM (BEAKER) (test 141 meq/L 135-148 code = 381) POTASSIUM (BEAKER) (test 3.1 meq/L 3.5-5.5 code = 379) CHLORIDE (BEAKER) (test 105 meq/L 98-106 code = 382) CO2 (BEAKER) (test code = 25 meq/L 20-31 355) BLOOD UREA NITROGEN 17 mg/dL 10-26 (BEAKER) (test code = 354) CREATININE (BEAKER) (test 1.12 mg/dL 0.50-1.20 code = 358) GLUCOSE RANDOM (BEAKER) 117 mg/dL 70-110 (test code = 652) CALCIUM (BEAKER) (test 9.1 mg/dL 8.5-10.5 code = 697) AST (SGOT) (BEAKER) (test 11 U/L 5-40 code = 353) ALT (SGPT) (BEAKER) (test 17 U/L 6-50 code = 347) EGFR (BEAKER) (test code mL/min/1.73 sq m INSUF FICIENT CLINICAL DATA = 1092) TO CALCULATE EST IMATED GFR. [id number] 04:43:00 Test Item Value Reference Range Comments MAGNESIUM (BEAKER) (test code = 627) 1.7 mg/dL 1.5-3.0 CBC W/PLT COUNT & AUTO [id number] 04:16:00 Test Item Value Reference Range Comments WHITE BLOOD CELL COUNT (BEAKER) (test code = 8.5 K/ L 4.0 -10.0 775) RED BLOOD CELL COUNT (BEAKER) (test code = 761) 4.49 M/ L 4.00-5.00 HEMOGLOBIN (BEAKER) (test code = 410) 12.8 GM/DL 12.0-15.0 HEMATOCRIT (BEAKER) (test code = 411) 38.8 % 36.0-45.0 MEAN CORPUSCULAR VOLUME (BEAKER) (test code = 86.5 fL 82 .0-99.0 753) MEAN CORPUSCULAR HEMOGLOBIN (BEAKER) (test code 28.4 pg 27.0-33.0 = 751) MEAN CORPUSCULAR HEMOGLOBIN CONC (BEAKER) (test 32.9 GM/DL 32.0-36.0 code = 752) RED CELL DISTRIBUTION WIDTH (BEAKER) (test code 12.9 % 12.0-15.0 = 412) PLATELET COUNT (BEAKER) (test code = 756) 232 K/CU MM 150-43 0 MEAN PLATELET VOLUME (BEAKER) (test code = 754) 9.5 fL 6.5-10.5 NUCLEATED RED BLOOD CELLS (BEAKER) (test code = 0 /100 WBC 0-0 413) NEUTROPHILS RELATIVE PERCENT (BEAKER) (test code 56 % = 429) LYMPHOCYTES RELATIVE PERCENT (BEAKER) (test code 30 % = 430) MONOCYTES RELATIVE PERCENT (BEAKER) (test code = 10 % 431) EOSINOPHILS RELATIVE PERCENT (BEAKER) (test code 3 % = 432) BASOPHILS RELATIVE PERCENT (BEAKER) (test code = 1 % 437) NEUTROPHILS ABSOLUTE COUNT (BEAKER) (test code = 4.70 K/ L 1.80-8.00 670) LYMPHOCYTES ABSOLUTE COUNT (BEAKER) (test code = 2.60 K/ L 1.48-4.50 414) MONOCYTES ABSOLUTE COUNT (BEAKER) (test code = 0.80 K/ L 0 .00-1.30 415) EOSINOPHILS ABSOLUTE COUNT (BEAKER) (test code = 0.20 K/ L 0.00-0.50 416) BASOPHILS ABSOLUTE COUNT (BEAKER) (test code = 0.10 K/ L 0 .00-0.20 417)
--- NOTE | 2020-03-22 14:55 | RAD REPORT ---
EXAM DESCRIPTION: RAD - Ankle Left 3 View -03/22/2020 2:40 pm CLINICAL HISTORY: Left ankle pain status post injury FINDINGS: No fracture or dislocation is seen. Soft tissue swelling
--- NOTE | 2020-03-22 15:01 | ER ---
Nurse's Notes [facility] Name: Amber Fischer Age: 69 yrs Sex: Female : 1950 Arrival Date: 03/22/2020 Time: 14:14 Bed 17 Private MD: Diagnosis: Sprain of ankle;Tinea pedis Presentation: 03/22 14:15 Chief complaint: Patient states: "I twisted my ankle 2 weeks ago and it won't stop sv hurting.". Coronavirus screen: Proceed with normal triage. Patient reports a cough. Patient denies shortness of breath or difficulty breathing. Patient denies measured and/or subjective temperature greater than 100.4F prior to today's visit. Patient denies travel on a cruise ship or to a country the [facility] currently lists as an affected area. Patient denies contact with known and/or suspected case of COVID-19. Ebola Screen: No symptoms or risks identified at this time. Risk Assessment: Do you want to hurt yourself or someone else? Patient reports no desire to harm self or others. Onset of symptoms was March 2020. 14:15 Method Of Arrival: Wheelchair sv 14:15 Acuity: LUZ MARIA 4 sv 14:17 Initial Sepsis Screen: Does the patient meet any 2 criteria? No. Patient's initial sv sepsis screen is negative. Does the patient have a suspected source of infection? No. Patient's initial sepsis screen is negative. Triage Assessment: 14:19 General: Appears in no apparent distress. comfortable, Behavior is calm, cooperative, sv appropriate for age. Pain: Complains of pain in left ankle. Neuro: Level of Consciousness is awake, alert, obeys commands. Respiratory: Respiratory effort is even, unlabored. Historical: - Allergies: 14:17 PENICILLINS; sv - PMHx: 14:17 BORN WITH A HEART DEFECT; CVA; fluid retention; Hypertension; lumbar fracture; sv - PSHx: 14:17 Heart Surgery; sv - Immunization history:: Flu vaccine is not up to date. - Social history:: Smoking status: Patient reports the use of cigarette tobacco products, smokes one pack cigarettes per day. Screenin:32 Abuse screen: Denies threats or abuse. Denies injuries from another. Nutritional ca1 screening: No deficits noted. Tuberculosis screening: No symptoms or risk factors identified. Fall Risk Fall in past 12 months (25 points). Assessment: 14:32 General: Appears in no apparent distress. comfortable, Behavior is calm, cooperative, ca1 appropriate for age. Pain: Complains of pain in left lateral ankle, left medial ankle and anterior aspect of left ankle Pain currently is 10 out of 10 on a pain scale. Neuro: Level of Consciousness is awake, alert, obeys commands, Oriented to person, place, time, situation. Derm: Skin is intact, is healthy with good turgor, Skin is pink, warm \\T\\ dry. Musculoskeletal: Circulation, motion, and sensation intact. Capillary refill < 3 seconds, Range of motion: limited in left ankle Swelling present in left foot, left lateral ankle, lateral aspect of left foot, left Achilles, left heel, left medial ankle, medial aspect of left foot, anterior aspect of left ankle and dorsum of left foot. 15:22 Reassessment: Patient appears in no apparent distress at this time. Patient is alert, ca1 oriented x 3, equal unlabored respirations, skin warm/dry/pink. Vital Signs: 14:17 BP 127 / 65; Pulse 61; Resp 16; Temp 97.5; Pulse Ox 100% ; Weight 77.11 kg; Height 5 sv ft. 4 in. (162.56 cm); Pain 10/10; 15:22 BP 119 / 65; Pulse 62; Resp 17 S; Pulse Ox 100% on R/A; ca1 14:17 Body Mass Index 29.18 (77.11 kg, 162.56 cm) sv ED Course: 14:14 Patient arrived in ED. as 14:16 Triage completed. sv 14:16 [facility] kb 14:17 Marty Veliz MD is Attending Physician. kb 14:17 Arm band placed on. sv 14:31 Angela Hodge, EZIO is Primary Nurse. ca1 14:32 Patient has correct armband on for positive identification. Bed in low position. Call ca1 light in reach. Side rails up X 1. Pulse ox on. NIBP on. 14:32 No provider procedures requiring assistance completed. Patient did not have IV access ca1 during this emergency room visit. 14:41 Ankle Left 3 View XRAY In Process Unspecified. EDMS 15:12 Air stirrup applied to left ankle. lt1 Administered Medications: No medications were administered Outcome: 15:01 Discharge ordered by . kb 15:26 Discharged to home via wheelchair. ca1 15:26 Condition: stable 15:26 Discharge instructions given to patient, Instructed on discharge instructions, follow up and referral plans. Demonstrated understanding of instructions, follow-up care, splint care. 15:26 Patient left the ED. ca1 Signatures: Dispatcher [employer] EDMS Mima Fischer, ATIF-Presley FIGURINE MAKER-Susan Brewer RN RN Magda Kowalski Cheryl, RN RN ca1 Chelsey, Alia lt1 Corrections: (The following items were deleted from the chart) 14:17 14:17 Social history: Smoking status: Patient denies any tobacco usage or history of. svsv 14:37 14:32 Musculoskeletal: Circulation, motion, and sensation intact. Capillary refill < 3 ca1 seconds, Range of motion: limited in left ankle ca1
--- NOTE | 2020-03-22 15:01 | EDPHYS ---
Physician Documentation [facility] Name: Amber Fischer Age: 69 yrs Sex: Female : 1950 Arrival Date: 03/22/2020 Time: 14:14 Bed 17 Private MD: ED Physician Marty Veliz HPI: 03/22 14:54 This 69 yrs old Black Female presents to ER via Wheelchair with complaints of Ankle kb Injury. 14:54 The patient presents with decreased range of motion, an injury, pain, that is acute, kb swelling, tenderness. The complaints affect the left ankle. Onset: The symptoms/episode began/occurred 2 week(s) ago. Context: missed a step on the bus and twisted ankle. Associated signs and symptoms: Pertinent positives: swelling, Pertinent negatives: calf tenderness, fever, nausea, numbness, rash, tingling, vomiting, warmth, weakness. Modifying factors: The symptoms are alleviated by nothing, the symptoms are aggravated by nothing. Severity of symptoms: At their worst the symptoms were moderate, in the emergency department the symptoms are unchanged. The patient has not experienced similar symptoms in the past. The patient has not recently seen a physician. Pt reports she twisted her ankle 2 weeks ago and it is still hurting. Also reports rash on bottoms of feet. Historical: - Allergies: 14:17 PENICILLINS; sv - PMHx: 14:17 BORN WITH A HEART DEFECT; CVA; fluid retention; Hypertension; lumbar fracture; sv - PSHx: 14:17 Heart Surgery; sv - Immunization history:: Flu vaccine is not up to date. - Social history:: Smoking status: Patient reports the use of cigarette tobacco products, smokes one pack cigarettes per day. ROS: 14:52 Constitutional: Negative for fever, chills, and weight loss, Cardiovascular: Negative kb for chest pain, palpitations, and edema, Respiratory: Negative for shortness of breath, cough, wheezing, and pleuritic chest pain, Abdomen/GI: Negative for abdominal pain, nausea, vomiting, diarrhea, and constipation, Back: Negative for injury and pain, Skin: Negative for injury, rash, and discoloration, Neuro: Negative for headache, weakness, numbness, tingling, and seizure. 14:52 MS/extremity: Positive for injury or acute deformity, pain, swelling, tenderness, of the anterior aspect of left ankle. Exam: 14:52 Constitutional: This is a well developed, well nourished patient who is awake, alert, kb and in no acute distress. Head/Face: Normocephalic, atraumatic. Neck: Trachea midline, no thyromegaly or masses palpated, and no cervical lymphadenopathy. Supple, full range of motion without nuchal rigidity, or vertebral point tenderness. No Meningismus. Chest/axilla: Normal chest wall appearance and motion. Nontender with no deformity. No lesions are appreciated. Cardiovascular: Regular rate and rhythm with a normal S1 and S2. No gallops, murmurs, or rubs. Normal PMI, no JVD. No pulse deficits. Respiratory: Lungs have equal breath sounds bilaterally, clear to auscultation and percussion. No rales, rhonchi or wheezes noted. No increased work of breathing, no retractions or nasal flaring. Abdomen/GI: Soft, non-tender, with normal bowel sounds. No distension or tympany. No guarding or rebound. No evidence of tenderness throughout. Neuro: Awake and alert, GCS 15, oriented to person, place, time, and situation. Cranial nerves II-XII grossly intact. Motor strength 5/5 in all extremities. Sensory grossly intact. Cerebellar exam normal. Normal gait. 14:52 Musculoskeletal/extremity: Extremities: grossly normal except: noted in the anterior aspect of left ankle: pain, swelling, tenderness, ROM: no acute changes, Circulation is intact in all extremities. Sensation intact. 14:52 Skin: consistent with athletes foot. Vital Signs: 14:17 BP 127 / 65; Pulse 61; Resp 16; Temp 97.5; Pulse Ox 100% ; Weight 77.11 kg; Height 5 sv ft. 4 in. (162.56 cm); Pain 10/10; 15:22 BP 119 / 65; Pulse 62; Resp 17 S; Pulse Ox 100% on R/A; ca1 14:17 Body Mass Index 29.18 (77.11 kg, 162.56 cm) sv MDM: 14:21 Patient medically screened. kb 14:51 Data reviewed: vital signs, nurses notes. Data interpreted: Pulse oximetry: on room air kb is 100 %. Interpretation: normal. Counseling: I had a detailed discussion with the patient and/or guardian regarding: the historical points, exam findings, and any diagnostic results supporting the discharge/admit diagnosis, radiology results, the need for outpatient follow up, a family practitioner, to return to the emergency department if symptoms worsen or persist or if there are any questions or concerns that arise at home. 03/22 14:25 Order name: Ankle Left 3 View XRAY; Complete Time: 14:59 kb 03/22 15:00 Order name: Aircast Ankle Splint; Complete Time: 15:12 kb Administered Medications: No medications were administered Disposition: 15:37 Co-signature as Attending Physician, Marty Veliz MD I agree with the assessment and kdr plan of care. Disposition: 03/22/20 15:01 Discharged to Home. Impression: Sprain of ankle, Tinea pedis. - Condition is Stable. - Discharge Instructions: Athlete's Foot, [id number]-[id number], Ankle Sprain, [id number]-[id number]. - Medication Reconciliation Form, Thank You Letter, Antibiotic Education, Prescription Opioid Use form. - Follow up: Emergency Department; When: As needed; Reason: Worsening of condition. Follow up: Private Physician; When: 2 - 3 days; Reason: Recheck today's complaints, Continuance of care, Re-evaluation by your physician. Signatures: Dispatcher [employer] EDMS Mima Fischer, ATIF-Presley NAVARROP-Susan Brewer, RN RN Marty Brewer MD MD [facility] Angela Hodge RN RN ca1 Corrections: (The following items were deleted from the chart) 14:17 14:17 Social history: Smoking status: Patient denies any tobacco usage or history of. [facility] 15:26 15:01 03/22/2020 15:01 Discharged to Home. Impression: Sprain of ankle; Tinea pedis. ca1 Condition is Stable. Forms are Medication Reconciliation Form, Thank You Letter, Antibiotic Education, Prescription Opioid Use. Follow up: Emergency Department; When: As needed; Reason: Worsening of condition. Follow up: Private Physician; When: 2 - 3 days; Reason: Recheck today's complaints, Continuance of care, Re-evaluation by your physician. kb
[2020-03-22 15:52] VITALS: TEMP 97.5; O2SAT 100
[2020-03-22 15:54] VITALS: BP 119/65
== END 2020-03-22 15:26 | disposition home or self-care (01) ==
LOC: ER 14:10
DX: S93.402A Sprain of unspecified ligament of left ankle, initial encounter (principal); B35.3 Tinea pedis; X50.1XXA Overexertion from prolonged static or awkward postures, initial encounter; Y93.89 Activity, other specified; Y92.89 Other specified places as the place of occurrence of the external cause; F17.210 Nicotine dependence, cigarettes, uncomplicated
CPT/HCPCS: 99283

== ENCOUNTER 2020-04-20 18:11 | Emergency (ER) | payer OTHER ==
--- OUTSIDE RECORDS SUMMARY | 2020-04-20 18:13 | XMS REPORT | Clinical Summary ---
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 Mild to moderate plaque within the carotid bulbs bilaterally. 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 CT Head-07/23/2017- No acute intracranial abnormality. Mild periventricular Chronic microvascular ischemic changes. Carotid Doppler-Both proximal internal c arotid arteries demonstrate soft plaquing and diffuse intimal thickening. Bilateral Lower Doppler 07/23/2017 due to Bilateral leg edema and swelling-No evidence of left or right lower extremity deep venous thrombosis. Essential (primary) hypertension 07/26/2017 Noncompliance with medications 07/26/2017 Overview: Refused to take HTN medications in past at home. Right lower lobe pneumonia 07/26/2017 Tobacco abuse 07/26/2017 Elevated troponin 07/26/2017 Overview: Trop was 0.05. Seen by [employer] Dr. Crissy Warren--thought to be related to CVA/pneumonia. EKG normal. Echo- trace mitral and tricuspid regurgi tation, normal right ventricular systolic pressure. Type 2 diabetes mellitus with circulatory disorder, wi thout long-term 07/26/2017 current use of insulin Family History Medical History Relation Name Comments Parkinsonism Father Diabetes Mother Relation Name Status Comments Father Mother Social History Tobacco Use Types Packs/Day Years Used Date Current Every Day Smoker 1 50 Smokeless Tobacco: Current User Tobacco Cessation: Ready to Quit: No; Co unseling Given: Yes Alcohol Use Drinks/Week oz/Week Comments No Sex Assigned at Date Recorded Not on file Job Start Date Occupation Industry Not on file Not on file Not on file Travel History Travel Start Travel End No recent travel history available. Last Filed Vital Signs Not on file Plan of Treatment Not on file Results Not on fileafter 04/20/2019 Insurance Payer Benefit Plan / Group Subscriber ID Type Phone A ddress MEDICARE MEDICARE A B xxxxxxxxxx Medicare MCR SUPPLEMENT/INDIVIDUAL [employer] xxxxxxxx [facility]
--- OUTSIDE RECORDS SUMMARY | 2020-04-20 18:14 | XMS REPORT ---
:1950 Author Organization [facility] t Address [address] [place] [address] Care Team Providers Name Role Phone AZIZ Attending Clinician Unavailable AZIZ Admitting Clinician Unavailable Problems This patient has no known problems. Allergies, Adverse Reactions, Alerts This patient has no known allergies or adverse reactions. Medications This patient has no known medications. Procedures This patient has no known procedures. Results Test Description Test Time Test Comments Results Result Comments Source POCT-GLUCOSE METER 2017-07-28 16:59:00 Test Item Value Reference Range Interpretation Comme [facility] (test 138 mg/dL 70-110 H TESTED AT [facility] [address] [facility] code = 1538) [facility] [address] POCT-GLUCOSE [id number] 11:48:00 Test Item Value Reference Range Interpretation Comments POC-GLUCOSE METER 114 mg/dL 70-110 H TESTED AT [facility] [address] ([facility] (test code [employer] [facility] = 1538) [place] [address] POCT-GLUCOSE [id number] 20:55:00 Test Item Value Reference Range Interpretation Comments POC-GLUCOSE METER 206 mg/dL 70-110 H TESTED AT [facility] [address] ([facility]) (test code [employer] [facility] = 1538) [place] [address] POCT-GLUCOSE [id number] 17:00:00 Test Item Value Reference Range Interpretation Comments POC-GLUCOSE METER 270 mg/dL 70-110 H TESTED AT [facility] [address] ([facility]) (test code [employer] [facility] = 1538) [place] [address] POCT-GLUCOSE [id number] 11:43:00 Test Item Value Reference Range Interpretation Comments POC-GLUCOSE METER 145 mg/dL 70-110 H TESTED AT [facility] [address] ([facility]) (test code [employer] [facility] = 1538) [place] [address] CREATINE KINASE (CK), TOTAL AND [id number] 05:59:00 Test Item Value Reference Range Interpretation Comments CREATINE KINASE TOTAL (BEAKER) 81 U/L 29-168 (test code = 380) CREATINE KINASE-MB (BEAKER) (test 1.6 ng/mL 0.0-4.9 code = 750) CREATINE KINASE-MB INDEX (BEAKER) 2.0 % (test code = 395) CK-MB Reference Range:<5 Normal5-10 Borderline>10 AbnormalTROPONIN I 2017-07-27 05:59:00 Test Item Value Reference Range Interpretation Comments TROPONIN I (BEAKER) (test code = 0.05 ng/mL 0.00-0.15 397) Troponin I (TnI) levels must be interpreted [...] acute neurological disease, and persistent tachyarrhythmia.COMPREHENSIVE METABOLIC [id number] 05:50:00 Test Item Value Reference Range Interpretation Comments TOTAL PROTEIN 7.1 gm/dL 6.0-8.5 (BEAKER) (test code = 770) ALBUMIN (BEAKER) 3.4 g/dL 3.5-5.0 L (test code = 1145) ALKALINE PHOSPHATASE 69 U/L 30-115 (BEAKER) (test code = 346) BILIRUBIN TOTAL 0.8 mg/dL 0.1-1.3 (BEAKER) (test code = 377) SODIUM (BEAKER) 142 meq/L 135-148 (test code = 381) POTASSIUM (BEAKER) 3.4 meq/L 3.5-5.5 L (test code = 379) CHLORIDE (BEAKER) 106 meq/L 98-106 (test code = 382) CO2 (BEAKER) (test 24 meq/L 20-31 code = 355) BLOOD UREA NITROGEN 14 mg/dL 10-26 (BEAKER) (test code = 354) CREATININE (BEAKER) 1.01 mg/dL 0.50-1.20 (test code = 358) GLUCOSE RANDOM 135 mg/dL 70-110 H (BEAKER) (test code = 652) CALCIUM (BEAKER) 9.0 mg/dL 8.5-10.5 (test code = 697) AST (SGOT) (BEAKER) 13 U/L 5-40 (test code = 353) ALT (SGPT) (BEAKER) 19 U/L 6-50 (test code = 347) EGFR (BEAKER) (test mL/min/1.73 INSUFFIC IENT code = 1092) sq m CLINICAL DATA T O CALCULATE ESTIM ATED GFR. [id number] 05:49:00 Test Item Value Reference Range Interpretation Comments MAGNESIUM (BEAKER) (test code = 1.5 mg/dL 1.5-3.0 627) POCT-GLUCOSE [id number] 05:24:00 Test Item Value Reference Range Interpretation Comments POC-GLUCOSE METER 148 mg/dL 70-110 H TESTED AT [facility] [address] (BEAKER) (test code [facility] = 1538) [place] [address] CBC W/PLT COUNT & AUTO [id number] 05:23:00 Test Item Value Reference Range Interpretation Comments WHITE BLOOD CELL COUNT (BEAKER) 8.9 K/ L 4.0-10.0 (test code = 775) RED BLOOD CELL COUNT (BEAKER) 4.46 M/ L 4.00-5.00 (test code = 761) HEMOGLOBIN (BEAKER) (test code = 12.8 GM/DL 12.0-15.0 410) HEMATOCRIT (BEAKER) (test code = 38.5 % 36.0-45.0 411) MEAN CORPUSCULAR VOLUME (BEAKER) 86.3 fL 82.0-99.0 (test code = 753) MEAN CORPUSCULAR HEMOGLOBIN 28.6 pg 27.0-33.0 (BEAKER) (test code = 751) MEAN CORPUSCULAR HEMOGLOBIN CONC 33.2 GM/DL 32.0-36.0 (BEAKER) (test code = 752) RED CELL DISTRIBUTION WIDTH 13.2 % 12.0-15.0 (BEAKER) (test code = 412) PLATELET COUNT (BEAKER) (test 243 K/CU MM 150-430 code = 756) MEAN PLATELET VOLUME (BEAKER) 9.6 fL 6.5-10.5 (test code = 754) NUCLEATED RED BLOOD CELLS 0 /100 WBC 0-0 (BEAKER) (test code = 413) NEUTROPHILS RELATIVE PERCENT 65 % (BEAKER) (test code = 429) LYMPHOCYTES RELATIVE PERCENT 23 % (BEAKER) (test code = 430) MONOCYTES RELATIVE PERCENT 10 % (BEAKER) (test code = 431) EOSINOPHILS RELATIVE PERCENT 2 % (BEAKER) (test code = 432) BASOPHILS RELATIVE PERCENT 1 % (BEAKER) (test code = 437) NEUTROPHILS ABSOLUTE COUNT 5.80 K/ L 1.80-8.00 (BEAKER) (test code = 670) LYMPHOCYTES ABSOLUTE COUNT 2.00 K/ L 1.48-4.50 (BEAKER) (test code = 414) MONOCYTES ABSOLUTE COUNT (BEAKER) 0.90 K/ L 0.00-1.30 (test code = 415) EOSINOPHILS ABSOLUTE COUNT 0.10 K/ L 0.00-0.50 (BEAKER) (test code = 416) BASOPHILS ABSOLUTE COUNT (BEAKER) 0.10 K/ L 0.00-0.20 (test code = 417) POCT-GLUCOSE [id number] 21:22:00 Test Item Value Reference Range Interpretation Comments POC-GLUCOSE METER 127 mg/dL 70-110 H TESTED AT [facility] [address] ([facility]) (test code [facility] = 1538) [place] [address] POCT-GLUCOSE [id number] 15:57:00 Test Item Value Reference Range Interpretation Comments POC-GLUCOSE METER 156 mg/dL 70-110 H TESTED AT [facility] [address] ([facility]) (test code [facility] = 1538) [place] [address] POCT-GLUCOSE [id number] 12:06:00 Test Item Value Reference Range Interpretation Comments POC-GLUCOSE METER 109 mg/dL 70-110 TESTED AT [facility] [address] ([facility]) (test code [facility] = 1538) [place] [address] HEMOGLOBIN [id number] 11:00:00 Test Item Value Reference Range Interpretation Comments [facility]C [facility] (test code = 6.6 % 4.3-6.1 H 368) COMPREHENSIVE METABOLIC [id number] 04:45:00 Test Item Value Reference Range Interpretation Comments TOTAL PROTEIN 6.7 gm/dL 6.0-8.5 (BEAKER) (test code = 770) ALBUMIN (BEAKER) 3.2 g/dL 3.5-5.0 L (test code = 1145) ALKALINE PHOSPHATASE 67 U/L 30-115 (BEAKER) (test code = 346) BILIRUBIN TOTAL 0.5 mg/dL 0.1-1.3 (BEAKER) (test code = 377) SODIUM (BEAKER) 141 meq/L 135-148 (test code = 381) POTASSIUM (BEAKER) 3.1 meq/L 3.5-5.5 L (test code = 379) CHLORIDE (BEAKER) 105 meq/L 98-106 (test code = 382) CO2 (BEAKER) (test 25 meq/L 20-31 code = 355) BLOOD UREA NITROGEN 17 mg/dL 10-26 (BEAKER) (test code = 354) CREATININE (BEAKER) 1.12 mg/dL 0.50-1.20 (test code = 358) GLUCOSE RANDOM 117 mg/dL 70-110 H (BEAKER) (test code = 652) CALCIUM (BEAKER) 9.1 mg/dL 8.5-10.5 (test code = 697) AST (SGOT) (BEAKER) 11 U/L 5-40 (test code = 353) ALT (SGPT) (BEAKER) 17 U/L 6-50 (test code = 347) EGFR (BEAKER) (test mL/min/1.73 INSUFFIC IENT code = 1092) sq m CLINICAL DATA T O CALCULATE ESTIM ATED GFR. [id number] 04:43:00 Test Item Value Reference Range Interpretation Comments MAGNESIUM (BEAKER) (test code = 1.7 mg/dL 1.5-3.0 627) CBC W/PLT COUNT & AUTO [id number] 04:16:00 Test Item Value Reference Range Interpretation Comments WHITE BLOOD CELL COUNT (BEAKER) 8.5 K/ L 4.0-10.0 (test code = 775) RED BLOOD CELL COUNT (BEAKER) 4.49 M/ L 4.00-5.00 (test code = 761) HEMOGLOBIN (BEAKER) (test code = 12.8 GM/DL 12.0-15.0 410) HEMATOCRIT (BEAKER) (test code = 38.8 % 36.0-45.0 411) MEAN CORPUSCULAR VOLUME (BEAKER) 86.5 fL 82.0-99.0 (test code = 753) MEAN CORPUSCULAR HEMOGLOBIN 28.4 pg 27.0-33.0 (BEAKER) (test code = 751) MEAN CORPUSCULAR HEMOGLOBIN CONC 32.9 GM/DL 32.0-36.0 (BEAKER) (test code = 752) RED CELL DISTRIBUTION WIDTH 12.9 % 12.0-15.0 (BEAKER) (test code = 412) PLATELET COUNT (BEAKER) (test 232 K/CU MM 150-430 code = 756) MEAN PLATELET VOLUME (BEAKER) 9.5 fL 6.5-10.5 (test code = 754) NUCLEATED RED BLOOD CELLS 0 /100 WBC 0-0 (BEAKER) (test code = 413) NEUTROPHILS RELATIVE PERCENT 56 % (BEAKER) (test code = 429) LYMPHOCYTES RELATIVE PERCENT 30 % (BEAKER) (test code = 430) MONOCYTES RELATIVE PERCENT 10 % (BEAKER) (test code = 431) EOSINOPHILS RELATIVE PERCENT 3 % (BEAKER) (test code = 432) BASOPHILS RELATIVE PERCENT 1 % (BEAKER) (test code = 437) NEUTROPHILS ABSOLUTE COUNT 4.70 K/ L 1.80-8.00 (BEAKER) (test code = 670) LYMPHOCYTES ABSOLUTE COUNT 2.60 K/ L 1.48-4.50 (BEAKER) (test code = 414) MONOCYTES ABSOLUTE COUNT (BEAKER) 0.80 K/ L 0.00-1.30 (test code = 415) EOSINOPHILS ABSOLUTE COUNT 0.20 K/ L 0.00-0.50 (BEAKER) (test code = 416) BASOPHILS ABSOLUTE COUNT (BEAKER) 0.10 K/ L 0.00-0.20 (test code = 417)
--- NOTE | 2020-04-20 20:15 | RAD REPORT ---
EXAM DESCRIPTION: RAD - Ankle Left 3 View -04/20/2020 8:04 pm CLINICAL HISTORY: Left ankle pain status post injury FINDINGS: No fracture or dislocation is seen. Soft tissue swelling. Osteoporosis
[2020-04-20] MEDS ORDERED: HYDROCODONE/APAP 7.5/325 MG TAB ONE ×2 (21:00→22:52)
--- NOTE | 2020-04-20 22:07 | RAD REPORT ---
EXAM DESCRIPTION: [employer]04/20/2020 9:46 pm CLINICAL HISTORY: left leg pain and swelling. COMPARISON: 2017 FINDINGS: Short segment of the superficial femoral vein does not contain blood flow with echogenic m aterial consistent with acute thrombus. Left common femoral,, popliteal and posterior tibial veins are compressible and demonstrate augmenta tion. Doppler demonstrates good flow. IMPRESSION: Short segment of acute thrombus within the left superficial femoral vein. Rodriguez of the emergency Room was notified 10 p.m. April 20, 2020
--- NOTE | 2020-04-20 22:21 | ER ---
Nurse's Notes [facility] Name: Amber Fischer Age: 69 yrs Sex: Female : 1950 Arrival Date: 04/20/2020 Time: 18:13 Bed 7 Private MD: Diagnosis: Acute embolism and thrombosis of deep veins of lower extremity Presentation: 04/20 18:21 Chief complaint: Patient states: Stepped off bus 2 weeks ago and twisted left ankle, jl7 reports increased pain and swelling. Coronavirus screen: Proceed with normal triage. Patient denies a cough. Patient denies shortness of breath or difficulty breathing. Patient denies measured and/or subjective temperature greater than 100.4F prior to today's visit. Patient denies travel on a cruise ship or to a country the [facility] currently lists as an affected area. Patient denies contact with known and/or suspected case of COVID-19. Ebola Screen: No symptoms or risks identified at this time. Initial Sepsis Screen: Does the patient meet any 2 criteria? No. Patient's initial sepsis screen is negative. Does the patient have a suspected source of infection? No. Patient's initial sepsis screen is negative. Risk Assessment: Do you want to hurt yourself or someone else? Patient reports no desire to harm self or others. Onset of symptoms was April 06, 2020. Care prior to arrival: None. 18:21 Method Of Arrival: Ambulatory [facility] 18:21 Acuity: LUZ MARIA 4 jl7 Triage Assessment: 18:23 General: Appears in no apparent distress. uncomfortable, Behavior is cooperative, jl7 anxious. Pain: Complains of pain in left ankle Pain currently is 10 out of 10 on a pain scale. Historical: - Allergies: 18:23 PENICILLINS; jl7 - Home Meds: 18:23 aspirin 81 mg Oral chew 1 tab once daily [Active]; Spironolactone Oral [Active]; jl7 - PMHx: 18:23 BORN WITH A HEART DEFECT; CVA; fluid retention; Hypertension; lumbar fracture; jl7 - PSHx: 18:23 Heart Surgery; jl7 - Immunization history:: Adult Immunizations up to date. - Social history:: Smoking status: Patient reports the use of cigarette tobacco products, smokes one-half pack cigarettes per day. Screenin:30 Abuse screen: Denies threats or abuse. Denies injuries from another. Nutritional bp screening: No deficits noted. Tuberculosis screening: No symptoms or risk factors identified. Fall Risk None identified. Assessment: 18:30 General: SEE TRIAGE NOTE. bp 19:10 Reassessment: Patient appears in no apparent distress at this time. Patient and/or jb4 family updated on plan of care and expected duration. Pain level reassessed. Patient is alert, oriented x 3, equal unlabored respirations, skin warm/dry/pink. 19:44 Reassessment: daughter just called and updated about the patient's status. mg2 21:00 Reassessment: Patient appears in no apparent distress at this time. Patient and/or jb4 family updated on plan of care and expected duration. Pain level reassessed. Patient is alert, oriented x 3, equal unlabored respirations, skin warm/dry/pink. 22:00 Reassessment: Patient appears in no apparent distress at this time. Patient and/or jb4 family updated on plan of care and expected duration. Pain level reassessed. Patient is alert, oriented x 3, equal unlabored respirations, skin warm/dry/pink. Patient denies pain at this time. Patient states feeling better. 22:40 Reassessment: Patient appears in no apparent distress at this time. Patient and/or jb4 family updated on plan of care and expected duration. Pain level reassessed. Patient is alert, oriented x 3, equal unlabored respirations, skin warm/dry/pink. PT verbalized understanding of d/c and follow up instructions. Denies questions or concerns. Assisted to sons vehicle via wheelchair. Vital Signs: 18:21 BP 124 / 51; Pulse 66; Resp 19; Temp 98.5; Pulse Ox 98% ; Weight 77.11 kg; Height 5 ft. jl7 4 in. (162.56 cm); Pain 10/10; 20:45 BP 146 / 60; Pulse 59; Resp 16; Pulse Ox 98% on R/A; jb4 22:00 BP 129 / 52; Pulse 58; Resp 16; Pulse Ox 95% on R/A; jb4 18:21 Body Mass Index 29.18 (77.11 kg, 162.56 cm) jl7 ED Course: 18:13 Patient arrived in ED. as 18:23 Triage completed. jl7 18:23 Arm band placed on right wrist. jl7 18:26 Con, Chace, RN is Primary Nurse. bp 18:30 Patient has correct armband on for positive identification. Bed in low position. Call bp light in reach. Side rails up X2. 19:02 Tamir Chun PA is PHCP. jr8 19:02 Marty Veliz MD is Attending Physician. jr8 19:43 Patient did not have IV access during this emergency room visit. mg2 19:43 No provider procedures requiring assistance completed. mg2 20:04 XRAY Ankle LEFT 3 view In Process Unspecified. EDMS 21:47 US Extremity Venous Unilateral Ltd In Process Unspecified. EDMS Administered Medications: 20:57 Drug: [place] (7.5 mg-325 mg) 1 tabs Route: PO; mg2 22:00 Follow up: Response: No adverse reaction; Pain is decreased; RASS: Alert and Calm (0) jb4 22:40 Drug: Eliquis 10 mg Route: PO; jb4 22:40 Follow up: Response: Medication administered at discharge. jb4 22:40 Drug: [place] (7.5 mg-325 mg) 1 tabs {Note: rass score 0.} Route: PO; jb4 22:40 Follow up: Response: Medication administered at discharge. jb4 Outcome: 22:20 Discharge ordered by MD. jr8 22:40 Discharged to home via wheelchair, with family. jb4 22:40 Condition: stable 22:40 Discharge instructions given to patient, Instructed on discharge instructions, follow up and referral plans. medication usage, Demonstrated understanding of instructions, follow-up care, medications, Prescriptions given X 3. 22:48 Patient left the ED. mw2 Signatures: Dispatcher [employer] EDMS Magda Shane as Tamir Chun PA PA jr8 Francis Lawson, RN RN jb4 Angela Domínguez RN RN jl7 Chace Andujar, EZIO RN Poli Shepherd mw2 Johan Siddiqi, EZIO RN mg2 Corrections: (The following items were deleted from the chart) 23:04 23:01 Discharged to home via wheelchair, with family, jb4 jb4 23:04 23:01 Condition: stable jb4 jb4 23:04 23:01 Discharge instructions given to patient, Instructed on discharge instructions, jb4 follow up and referral plans. medication usage, Demonstrated understanding of instructions, follow-up care, medications, Prescriptions given X 3, jb4
--- NOTE | 2020-04-20 22:21 | EDPHYS ---
Physician Documentation [facility] Name: Amber Fischer Age: 69 yrs Sex: Female : 1950 Arrival Date: 04/20/2020 Time: 18:13 Bed 7 Private MD: ED Physician Marty Veliz HPI: 04/20 20:05 This 69 yrs old Black Female presents to ER via Ambulatory with complaints of Ankle jr8 Swelling. 20:05 The patient presents with decreased range of motion, pain. The complaints affect the jr8 left ankle. Onset: The symptoms/episode began/occurred gradually, 2 week(s) ago. Context: The problem was sustained outdoors, resulted from a mis-step by the patient, The mechanism of injury involved inversion of the affected ankle. Associated signs and symptoms: The patient has no apparent associated signs or symptoms. Modifying factors: The symptoms are alleviated by nothing, the symptoms are aggravated by nothing. Severity of symptoms: At their worst the symptoms were moderate, in the emergency department the symptoms are unchanged. The patient has not experienced similar symptoms in the past. The patient has not recently seen a physician. Stated that she continues to have swelling and pain that is not going away . Historical: - Allergies: 18:23 PENICILLINS; jl7 - Home Meds: 18:23 aspirin 81 mg Oral chew 1 tab once daily [Active]; Spironolactone Oral [Active]; jl7 - PMHx: 18:23 BORN WITH A HEART DEFECT; CVA; fluid retention; Hypertension; lumbar fracture; jl7 - PSHx: 18:23 Heart Surgery; jl7 - Immunization history:: Adult Immunizations up to date. - Social history:: Smoking status: Patient reports the use of cigarette tobacco products, smokes one-half pack cigarettes per day. ROS: 20:05 Eyes: Negative for injury, pain, redness, and discharge, ENT: Negative for injury, jr8 pain, and discharge, Neck: Negative for injury, pain, and swelling, Cardiovascular: Negative for chest pain, palpitations, and edema, Respiratory: Negative for shortness of breath, cough, wheezing, and pleuritic chest pain, Abdomen/GI: Negative for abdominal pain, nausea, vomiting, diarrhea, and constipation, Back: Negative for injury and pain, Skin: Negative for injury, rash, and discoloration, Neuro: Negative for headache, weakness, numbness, tingling, and seizure. 20:05 MS/extremity: Positive for decreased range of motion, pain, swelling, tenderness, of the left leg. Exam: 20:05 Constitutional: This is a well developed, well nourished patient who is awake, alert, jr8 and in no acute distress. Cardiovascular: Regular rate and rhythm with a normal S1 and S2. No gallops, murmurs, or rubs. Normal PMI, no JVD. No pulse deficits. Respiratory: Lungs have equal breath sounds bilaterally, clear to auscultation and percussion. No rales, rhonchi or wheezes noted. No increased work of breathing, no retractions or nasal flaring. Skin: Warm, dry with normal turgor. Normal color with no rashes, no lesions, and no evidence of cellulitis. Neuro: Awake and alert, GCS 15, oriented to person, place, time, and situation. Cranial nerves II-XII grossly intact. Motor strength 5/5 in all extremities. Sensory grossly intact. Cerebellar exam normal. Normal gait. 20:05 Musculoskeletal/extremity: Extremities: grossly normal except: noted in the left leg: Patient has left leg swelling from foot to mid calf. Tenderness to palpation around ankle. Small abrasive bhandari noted to left toes and dorsal foot, ROM: full active range of motion, limited passive range of motion, limited active range of motion due to pain, limited passive range of motion due to pain, Circulation is intact in all extremities. Sensation intact. Vital Signs: 18:21 BP 124 / 51; Pulse 66; Resp 19; Temp 98.5; Pulse Ox 98% ; Weight 77.11 kg; Height 5 ft. jl7 4 in. (162.56 cm); Pain 10/10; 20:45 BP 146 / 60; Pulse 59; Resp 16; Pulse Ox 98% on R/A; jb4 22:00 BP 129 / 52; Pulse 58; Resp 16; Pulse Ox 95% on R/A; jb4 18:21 Body Mass Index 29.18 (77.11 kg, 162.56 cm) jl7 MDM: 19:02 Patient medically screened. jr8 22:19 Data reviewed: vital signs, nurses notes, radiologic studies, plain films, ultrasound. 8 Data interpreted: Pulse oximetry: on room air is 95 %. Interpretation: normal. Counseling: I had a detailed discussion with the patient and/or guardian regarding: the historical points, exam findings, and any diagnostic results supporting the discharge/admit diagnosis, radiology results, the need for outpatient follow up, a family practitioner, to return to the emergency department if symptoms worsen or persist or if there are any questions or concerns that arise at home. 04/20 19:02 Order name: XRAY Ankle LEFT 3 view; Complete Time: 20:19 jr8 04/20 20:14 Order name: US Extremity Venous Unilateral Ltd; Complete Time: :15 jr8 Administered Medications: 20:57 Drug: [place] (7.5 mg-325 mg) 1 tabs Route: PO; mg2 22:00 Follow up: Response: No adverse reaction; Pain is decreased; RASS: Alert and Calm (0) jb4 22:40 Drug: Eliquis 10 mg Route: PO; jb4 22:40 Follow up: Response: Medication administered at discharge. jb4 22:40 Drug: [place] (7.5 mg-325 mg) 1 tabs {Note: rass score 0.} Route: PO; jb4 22:40 Follow up: Response: Medication administered at discharge. jb4 Disposition: 04/21 12:32 Co-signature as Attending Physician, Marty Veliz MD I agree with the assessment and kdr plan of care. Disposition: 04/20/20 22:20 Discharged to Home. Impression: Acute embolism and thrombosis of deep veins of lower extremity. - Condition is Stable. - Discharge Instructions: Deep Vein Thrombosis. - Prescriptions for Eliquis 5 mg Oral tablet - take 1 tablet by ORAL route 2 times per day; 60 tablet. Tylenol- Codeine #3 300-30 mg Oral Tablet - take 2 tablets by ORAL route every 6 hours As needed; 20 tablet. - Medication Reconciliation Form, Thank You Letter, Antibiotic Education, Prescription Opioid Use form. - Follow up: Private Physician; When: 2 - 3 days; Reason: Recheck today's complaints, Continuance of care, Re-evaluation by your physician. - Problem is new. - Symptoms have improved. Signatures: Dispatcher [employer] EDMS Marty Veliz MD MD kdr Roszak, Josh, PA PA jr8 Francis Lawson RN RN jb4 Angela Domínguez RN RN jl7 Poli Zuniga mw2 Johan Siddiqi, RN RN mg2 Corrections: (The following items were deleted from the chart) 04/20 22:48 22:20 04/20/2020 22:20 Discharged to Home. Impression: Acute embolism and thrombosis of mw2 deep veins of lower extremity. Condition is Stable. Forms are Medication Reconciliation Form, Thank You Letter, Antibiotic Education, Prescription Opioid Use. Follow up: Private Physician; When: 2 - 3 days; Reason: Recheck today's complaints, Continuance of care, Re-evaluation by your physician. Problem is new. Symptoms have improved. jr8
[2020-04-20] MEDS ORDERED: APIXABAN 5 MG TABLET ONE (22:37)
[2020-04-20 23:07] VITALS: BP 129/52; TEMP 98.5; O2SAT 95
== END 2020-04-20 22:48 | disposition home or self-care (01) ==
LOC: ER 18:11
DX: I82.412 Acute embolism and thrombosis of left femoral vein (principal); F17.210 Nicotine dependence, cigarettes, uncomplicated; Z88.0 Allergy status to penicillin
CPT/HCPCS: 93971; 99283

== ENCOUNTER 2020-12-04 07:10 | Emergency (ER) | payer OTHER ==
--- OUTSIDE RECORDS SUMMARY | 2020-12-04 07:11 | XMS REPORT | Clinical Summary ---
:1950 Author Organization [facility] Address [address] [place] [address] Care Team Providers Name Role Phone Deepthi Primary Care Provider Allergies Active Allergy Reactions Severity Noted Date Comments [place] And Derivatives 07/25/2017 Penicillins Hives 07/25/2017 Medications [...] 07/26/2017 Overview: Trop was 0.05. Seen by Commercial Collections Specialist Dr. Crissy Warren--thought to be related to [...] Not on file Results Not on fileafter 12/04/2019 Insurance Payer Benefit Plan / Subscriber ID Effective Dates Phone Addre ss Type Group MEDICARE MEDICARE A B [id number] 2016-Present Medicare [facility] [employer] [place] [id number] 2016-Present Medigap SUPPLEMENT/INDIV IDUAL
--- OUTSIDE RECORDS SUMMARY | 2020-12-04 07:12 | XMS REPORT | Continuity of Care Document ---
:1950 Author Organization [facility] t Address [address] [place] [address] Care Team Providers Name Role Phone Sharpless Primary Care Physician AZIZ Attending Clinician Unavailable AZIZ Admitting Clinician Unavailable Problems Condition Condition Condition Status Onset Resolution Last Treating Co mments Source Name Details Category Date Date Treatment Clinician Date Right Right Disease Active Overview: [facility] acute acute 07-[address] 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 Mild to moderate plaque within the carotid bulbs bilateral ly. Old infarctio n at Left Cerbellar Peduncle. CT Head-07/23- No acute intracran ial abnormali ty. Mild periventr icular Chronic microvasc ular ischemic changes.C arotid Doppler-B oth proximal internal carotid arteries demonstra te soft plaquing and diffuse intimal thickenin g. Bilateral Lower Doppler 07/23/2017 due to Bilateral leg edema and swelling- No evidence of left or right lower extremity deep venous thrombosi s. Essential Essential Disease Active [facility] (primary) (primary) 07-26 [facility] - hypertensi hypertensi 00:00: Me dical on on Center Noncomplia Noncomplia Disease Active Overview : [facility] n[facility] with nce with 07-26 Refused [facility] - medication medication 00:00: to take M edical s s 00 HTN Center medicatio ns in past at home. Right Right Disease Active [facility] lower lobe lower lobe 07-26 Lisa kes - pneumonia pneumonia 00:00: Medi dedra 00 Center Tobacco Tobacco Disease Active [facility] St abuse abuse 07-26 [facility] - 00:00: Medical 00 [place] Elevated Elevated Disease Active Overview: [facility] troponin troponin 07-26 Trop was [facility] - 00:00: 0.05. Medical 00 Seen by [facility] Cardiolog ist Dr. Crissy Warren--t hought to be related to CVA/pneum onia. EKG normal. Echo- trace mitral and tricuspid regurgita tion, normal right ventricul ar systolic pressure. Type 2 Type 2 Disease Active [facility] diabetes diabetes 07-26 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 y y disorder, disorder, without without long-term long-term current current use of use of insulin insulin Allergies, Adverse Reactions, Alerts Allergy Allergy Status Severity Reaction(s) Onset Inactive Treating Comm ents Source Name Type Date Date Clinician [place] Propensi Active [facility] And ty to 07-25 [facility] - Derivati adverse 00:00: Medical ves reaction 00 [facility] Penicill Propensi Active Hives [facility] ins ty to 07-25 [facility] - adverse 00:00: Medical reaction 00 [facility] Family History Family Member Diagnosis Comments Start Date Stop Date Source Natural father Parkinsonism [facility] Natural mother Diabetes [facility] Social History Social Habit Start Date Stop Date Quantity Comments Source Sex Assigned At [facility] Cigarettes smoked 2017-07-26 2017-07-26 [facility] - current (pack per 00:00:00 00:00:00 [facility] day) - Reported Cigarette 2017-07-26 2017-07-26 [facility] - pack-years 00:00:00 00:00:00 [facility] Tobacco use and 2017-07-26 2017-07-26 Current user [facility] - exposure 00:00:00 00:00:00 [facility] Alcohol intake 2017-07-26 2017-07-26 Current [facility] es - 00:00:00 00:00:00 non-drinker of Medical Ce nter alcohol (finding) Smoking Status Start Date Stop Date Source Current every day smoker 2017-07-26 00:00:00 [facility] Medications This patient has no known medications. Procedures This patient has no known procedures. Results Test Description Test Time Test Comments Results Result Comments Source POCT-GLUCOSE METER 2017-07-28 16:59:00 Test Item Value Reference Range Interpretation Comme nts POC-GLUCOSE METER (BEAKER) (test 138 mg/dL 70-110 H TESTED AT [facility] [address] code = 1538) [facility] [place] [address] POCT-GLUCOSE [id number] 11:48:00 Test Item Value Reference Range Interpretation Comments POC-GLUCOSE METER 114 mg/dL 70-110 H TESTED AT [facility] [address] (BEAKER) (test code [facility] = 1538) [place] [address] POCT-GLUCOSE [id number] 20:55:00 Test Item Value Reference Range Interpretation Comments POC-GLUCOSE METER 206 mg/dL 70-110 H TESTED AT [facility] [address] (BEAKER) (test code [facility] = 1538) [place] [address] POCT-GLUCOSE [id number] 17:00:00 Test Item Value Reference Range Interpretation Comments POC-GLUCOSE METER 270 mg/dL 70-110 H TESTED AT [facility] [address] (BEAKER) (test code [facility] = 1538) [place] [address] POCT-GLUCOSE [id number] 11:43:00 Test Item Value Reference Range Interpretation Comments POC-GLUCOSE METER 145 mg/dL 70-110 H TESTED AT [facility] [address] (BEAKER) (test code [facility] = 1538) [place] [address] CREATINE KINASE (CK), TOTAL AND [id number] 05:59:00 Test Item Value Reference Range Interpretation [...] acute neurological disease, and persistent tachyarrhythmia.COMPREHENSIVE METABOLIC [id number] 05:50:00 Test Item Value Reference Range Interpretation [...] DATA T O CALCULATE ESTIM ATED GFR. [id number] 05:49:00 Test Item Value Reference Range Interpretation Comments MAGNESIUM (BEAKER) (test code = 1.5 mg/dL 1.5-3.0 627) POCT-GLUCOSE [id number] 05:24:00 Test Item Value Reference Range Interpretation Comments POC-GLUCOSE METER 148 mg/dL 70-110 H TESTED AT [facility] [address] (BEAKER) (test code [facility] = 1538) [place] [address] CBC W/PLT COUNT & AUTO [id number] 05:23:00 Test Item Value Reference Range Interpretation [...] L 0.00-0.20 (test code = 417) POCT-GLUCOSE [id number] 21:22:00 Test Item Value Reference Range Interpretation Comments POC-GLUCOSE METER 127 mg/dL 70-110 H TESTED AT [facility] [address] (BEAKER) (test code [facility] = 1538) [place] [address] POCT-GLUCOSE [id number] 15:57:00 Test Item Value Reference Range Interpretation Comments POC-GLUCOSE METER 156 mg/dL 70-110 H TESTED AT [facility] [address] (BEAKER) (test code [facility] = 1538) [place] [address] POCT-GLUCOSE [id number] 12:06:00 Test Item Value Reference Range Interpretation Comments POC-GLUCOSE METER 109 mg/dL 70-110 TESTED AT [facility] [address] (BEAKER) (test code [facility] = 1538) [place] [address] HEMOGLOBIN [id number] 11:00:00 Test Item Value Reference Range Interpretation Comments HEMOGLOBIN A1C (BEAKER) (test code = 6.6 % 4.3-6.1 H 368) COMPREHENSIVE METABOLIC [id number] 04:45:00 Test Item Value Reference Range Interpretation [...] DATA T O CALCULATE ESTIM ATED GFR. [id number] 04:43:00 Test Item Value Reference Range Interpretation Comments MAGNESIUM (BEAKER) (test code = 1.7 mg/dL 1.5-3.0 627) CBC W/PLT COUNT & AUTO [id number] 04:16:00 Test Item Value Reference Range Interpretation [...]
[2020-12-04] MEDS ORDERED: LIDOCAINE VISCOUS 2% SOLN 15 ML UDC ONE (08:36)
--- NOTE | 2020-12-04 08:42 | ER ---
Nurse's Notes [facility] Name: Amber Fischer Age: 70 yrs Sex: Female : 1950 Arrival Date: 12/04/2020 Time: 07:11 Bed 4 Private MD: Diagnosis: Foreign body in right ear-partial insect/removed Presentation: 12/04 08:17 Chief complaint: Patient states: "I GOT BUGS IN MY HEAD. ONE CLIMBED IN MY EAR THIS bp MORNING.". Coronavirus screen: At this time, the client does not indicate any symptoms associated with coronavirus-19. Ebola Screen: No symptoms or risks identified at this time. Initial Sepsis Screen: Does the patient meet any 2 criteria? No. Patient's initial sepsis screen is negative. Does the patient have a suspected source of infection? No. Patient's initial sepsis screen is negative. Risk Assessment: Do you want to hurt yourself or someone else? Patient reports no desire to harm self or others. Onset of symptoms was December 04, 2020 at 06:00. 08:17 Method Of Arrival: Ambulatory bp 08:17 Acuity: LUZ MARIA 4 bp Triage Assessment: 08:22 General: Appears distressed, uncomfortable, Behavior is cooperative, appropriate for bp age, anxious. Pain: Complains of pain in right ear. EENT: Reports pain in right ear. Neuro: No deficits noted. Cardiovascular: No deficits noted. Respiratory: No deficits noted. GI: No signs and/or symptoms were reported involving the gastrointestinal system. : No signs and/or symptoms were reported regarding the genitourinary system. Derm: No deficits noted. Musculoskeletal: No deficits noted. Historical: - Allergies: 08:22 PENICILLINS; bp - Home Meds: 08:22 aspirin 81 mg Oral chew 1 tab once daily [Active]; amlodipine oral [Active]; bp - PMHx: 08:22 BORN WITH A HEART DEFECT; fluid retention; CVA; Hypertension; lumbar fracture; bp - Immunization history:: Adult Immunizations up to date. - Social history:: Smoking status: Patient reports the use of cigarette tobacco products, unknown amount. - Family history:: not pertinent. Screenin:23 Abuse screen: Denies threats or abuse. Denies injuries from another. Nutritional bp screening: No deficits noted. Tuberculosis screening: No symptoms or risk factors identified. Fall Risk None identified. Assessment: 08:23 General: SEE TRIAGE NOTE. bp 08:47 Reassessment: D/C ON HOLD PENDING FB REMOVAL. bp 09:30 Reassessment: PT D/C HOME AMBULATORY, DX WITH FOREIGN BODY IN EAR. bp Vital Signs: 08:17 BP 144 / 52; Pulse 85; Resp 16; Temp 97.8; Pulse Ox 97% ; Weight 63.5 kg; Height 5 ft. bp 4 in. (162.56 cm); 09:30 BP 117 / 59; Pulse 77; Resp 16; Temp 98; Pulse Ox 100% ; bp 08:17 Body Mass Index 24.03 (63.50 kg, 162.56 cm) bp ED Course: 07:11 Patient arrived in ED. rg4 07:31 Drake Tillman MD is Attending Physician. chelsey 08:16 Chace Andujar, RN is Primary Nurse. bp 08:21 Triage completed. bp 08:23 Arm band placed on. bp 08:23 Patient has correct armband on for positive identification. Bed in low position. Call bp light in reach. Side rails up X2. 08:41 Susan Mclain MD is Referral Physician. chelsey 09:30 No provider procedures requiring assistance completed. Patient did not have IV access bp during this emergency room visit. 09:33 Referral Physician role handed off by Susan Mclain MD chelsey 09:33 Susan Mclain MD is Referral Physician. chelsey Administered Medications: 08:45 Drug: Viscous Lidocaine Liquid (4 %) 3 ml Route: Mucous Membrane; bp Outcome: 08:41 Discharge ordered by . chelsey 09:30 Discharged to home ambulatory. bp 09:30 Condition: stable 09:30 Discharge instructions given to patient, Instructed on discharge instructions, follow up and referral plans. medication usage, Demonstrated understanding of instructions, follow-up care, medications, Prescriptions given X 1. 09:49 Patient left the ED. bp Signatures: Drake Tillman MD MD cha Garcia, Rubi rg4 Chace Andujar, RN RN bp
--- NOTE | 2020-12-04 08:42 | EDPHYS ---
Physician Documentation [facility] Name: Amber Fischer Age: 70 yrs Sex: Female : 1950 Arrival Date: 12/04/2020 Time: 07:11 Bed 4 Private MD: LEYLA Physician Drake Tillman HPI: 12/04 08:36 This 70 yrs old Black Female presents to ER via Ambulatory with complaints of Foreign chelsey Body In Ear. 08:36 The patient presents with a foreign body sensation, presumably from an insect. The chelsey complaints affect the right ear. Onset: The symptoms/episode began/occurred just prior to arrival. Modifying factors: The symptoms are alleviated by nothing, the symptoms are aggravated by nothing. Associated signs and symptoms: The patient has no apparent associated signs or symptoms. Severity of symptoms: At their worst the symptoms were mild in the emergency department the symptoms are unchanged. The patient has not experienced similar symptoms in the past. Historical: - Allergies: 08:22 PENICILLINS; bp - Home Meds: 08:22 aspirin 81 mg Oral chew 1 tab once daily [Active]; amlodipine oral [Active]; bp - PMHx: 08:22 BORN WITH A HEART DEFECT; fluid retention; CVA; Hypertension; lumbar fracture; bp - Immunization history:: Adult Immunizations up to date. - Social history:: Smoking status: Patient reports the use of cigarette tobacco products, unknown amount. - Family history:: not pertinent. ROS: 08:36 Constitutional: Negative for fever, chills, and weight loss, Eyes: Negative for injury, chelsey pain, redness, and discharge, Neck: Negative for injury, pain, and swelling, Cardiovascular: Negative for chest pain, palpitations, and edema, Respiratory: Negative for shortness of breath, cough, wheezing, and pleuritic chest pain, Abdomen/GI: Negative for abdominal pain, nausea, vomiting, diarrhea, and constipation, Back: Negative for injury and pain, : Negative for injury, bleeding, discharge, and swelling, MS/Extremity: Negative for injury and deformity, Skin: Negative for injury, rash, and discoloration, Neuro: Negative for headache, weakness, numbness, tingling, and seizure, Psych: Negative for depression, anxiety, suicide ideation, homicidal ideation, and hallucinations, Allergy/Immunology: Negative for hives, rash, and allergies, Endocrine: Negative for neck swelling, polydipsia, polyuria, polyphagia, and marked weight changes, Hematologic/Lymphatic: Negative for swollen nodes, abnormal bleeding, and unusual bruising. 08:36 ENT: Positive for ear pain, foreign body sensation. Exam: 08:36 Constitutional: This is a well developed, well nourished patient who is awake, alert, chelsey and in no acute distress. Head/Face: Normocephalic, atraumatic. Eyes: Pupils equal round and reactive to light, extra-ocular motions intact. Lids and lashes normal. Conjunctiva and sclera are non-icteric and not injected. Cornea within normal limits. Periorbital areas with no swelling, redness, or edema. Neck: Trachea midline, no thyromegaly or masses palpated, and no cervical lymphadenopathy. Supple, full range of motion without nuchal rigidity, or vertebral point tenderness. No Meningismus. Chest/axilla: Normal chest wall appearance and motion. Nontender with no deformity. No lesions are appreciated. Cardiovascular: Regular rate and rhythm with a normal S1 and S2. No gallops, murmurs, or rubs. Normal PMI, no JVD. No pulse deficits. Respiratory: Lungs have equal breath sounds bilaterally, clear to auscultation and percussion. No rales, rhonchi or wheezes noted. No increased work of breathing, no retractions or nasal flaring. Abdomen/GI: Soft, non-tender, with normal bowel sounds. No distension or tympany. No guarding or rebound. No evidence of tenderness throughout. Back: No spinal tenderness. No costovertebral tenderness. Full range of motion. Skin: Warm, dry with normal turgor. Normal color with no rashes, no lesions, and no evidence of cellulitis. MS/ Extremity: Pulses equal, no cyanosis. Neurovascular intact. Full, normal range of motion. Neuro: Awake and alert, GCS 15, oriented to person, place, time, and situation. Cranial nerves II-XII grossly intact. Motor strength 5/5 in all extremities. Sensory grossly intact. Cerebellar exam normal. Normal gait. Psych: Awake, alert, with orientation to person, place and time. Behavior, mood, and affect are within normal limits. 08:36 ENT: External ear(s): are unremarkable, Ear canal(s): foreign body, an insect. Vital Signs: 08:17 BP 144 / 52; Pulse 85; Resp 16; Temp 97.8; Pulse Ox 97% ; Weight 63.5 kg; Height 5 ft. bp 4 in. (162.56 cm); 09:30 BP 117 / 59; Pulse 77; Resp 16; Temp 98; Pulse Ox 100% ; bp 08:17 Body Mass Index 24.03 (63.50 kg, 162.56 cm) bp Procedures: 08:36 Foreign Body Removal: an insect, from the right ear canal, by using alligator clamps, [facility] lidocaine lavage. 09:31 Foreign Body Removal: by normal saline irrigation, partial removal only. The patient [facility] tolerated the removal well. MDM: 08:16 Patient medically screened. [facility] 08:36 Differential diagnosis: otitis externa, foreign body, cerumen impaction. Data reviewed: [facility] vital signs, nurses notes. Data interpreted: residential monitor: not applicable for this patient encounter. rate is 85 beats/min, rhythm is regular, Pulse oximetry: on room air. Counseling: I had a detailed discussion with the patient and/or guardian regarding: the historical points, exam findings, and any diagnostic results supporting the discharge/admit diagnosis. Administered Medications: 08:45 Drug: Viscous Lidocaine Liquid (4 %) 3 ml Route: Mucous Membrane; bp Disposition: 12/04/20 08:41 Discharged to Home. Impression: Foreign body in right ear - partial insect/removed. - Condition is Stable. - Prescriptions for Bactrim DS 800- 160 mg Oral Tablet - take 1 tablet by ORAL route every 12 hours for 7 days; 14 tablet. - Medication Reconciliation Form, Thank You Letter, Antibiotic Education, Prescription Opioid Use form. - Follow up: Private Physician; When: 2 - 3 days; Reason: Recheck today's complaints, Continuance of care, Re-evaluation by your physician. Follow up: Susan Mclain MD; When: 2 - 3 days; Reason: Recheck today's complaints, Re-evaluation by your physician. Follow up: Susan Mclain MD; When: Upon discharge from the Emergency Department; Reason: Recheck today's complaints, Re-evaluation by your physician. - Problem is new. - Symptoms have improved. Signatures: Primo, Drake, MD MD chelsey Con, Chace, RN RN bp Corrections: (The following items were deleted from the chart) 09:32 08:41 12/04/2020 08:41 Discharged to Home. Impression: Foreign body in right ear - chelsey insect/removed. Condition is Stable. Forms are Medication Reconciliation Form, Thank You Letter, Antibiotic Education, Prescription Opioid Use. Follow up: Private Physician; When: 2 - 3 days; Reason: Recheck today's complaints, Continuance of care, Re-evaluation by your physician. Follow up: Susan Mclain; When: 2 - 3 days; Reason: Recheck today's complaints, Re-evaluation by your physician. Problem is new. Symptoms have improved. [facility] 09:33 09:32 12/04/2020 08:41 Discharged to Home. Impression: Foreign body in right ear - chelsey partial insect/removed. Condition is Stable. Prescriptions for Cortisporin 3.5-10,000-1 mg/mL-unit/mL-% Otic solution - instill 4 drop by OTIC route every 6 hours; 10 milliliter. and Forms are Medication Reconciliation Form, Thank You Letter, Antibiotic Education, Prescription Opioid Use. Follow up: Private Physician; When: 2 - 3 days; Reason: Recheck today's complaints, Continuance of care, Re-evaluation by your physician. Follow up: Susan Mclain; When: 2 - 3 days; Reason: Recheck today's complaints, Re-evaluation by your physician. Problem is new. Symptoms have improved. [facility] 09:49 09:33 12/04/2020 08:41 Discharged to Home. Impression: Foreign body in right ear - bp partial insect/removed. Condition is Stable. Prescriptions for Bactrim DS 800-160 mg Oral Tablet - take 1 tablet by ORAL route every 12 hours for 7 days; 14 tablet. and Forms are Medication Reconciliation Form, Thank You Letter, Antibiotic Education, Prescription Opioid Use. Follow up: Private Physician; When: 2 - 3 days; Reason: Recheck today's complaints, Continuance of care, Re-evaluation by your physician. Follow up: Susan Mclain; When: Upon discharge from the Emergency Department; Reason: Recheck today's complaints, Re-evaluation by your physician. Problem is new. Symptoms have improved. [facility]
[2020-12-04 10:32] VITALS: BP 117/59; TEMP 98; O2SAT 100
== END 2020-12-04 09:49 | disposition home or self-care (01) ==
LOC: ER 07:10
PROC: 09C3XZZ Extirpation of Matter from Right External Auditory Canal, External Approach (ICD-10-PCS; principal; 2020-12-04)
DX: T16.1XXA Foreign body in right ear, initial encounter (principal); I10 Essential (primary) hypertension; Z79.82 Long term (current) use of aspirin; Z72.0 Tobacco use; Z88.0 Allergy status to penicillin
CPT/HCPCS: 99283

== ENCOUNTER 2021-03-29 19:07 | Emergency (ER) | payer OTHER ==
--- OUTSIDE RECORDS SUMMARY | 2021-03-29 19:11 | XMS REPORT | Continuity of Care Document ---
:1950 Author Organization [facility] t Address [address] [place] [address] Care Team Providers Name Role Phone Sharpless Primary Care Physician AZIZ Attending Clinician Unavailable AZIZ Admitting Clinician Unavailable Problems Condition Condition Condition Status Onset Resolution Last Treating Co mments Source Name Details Category Date Date Treatment Clinician Date Right Right Disease Active Overview: [facility] of [facility] - infarct of infarct of 00:00: [...] dedra 00 Center Tobacco Tobacco Disease Active [facility] abuse [facility]: Medical 00 [facility] Elevated Elevated Disease Active Overview: [facility] troponin troponin 07-26 Trop was [facility] - 00:00: 0.05. Medical 00 Seen by [facility] Cardiolog ist Dr. Crissy Warren--t hought to be related to CVA/pneum onia. EKG normal. Echo- trace mitral and tricuspid regurgita tion, normal right ventricul ar systolic pressure. Type 2 Type [address] 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 Natural mother [facility] Social History Social Habit Start Date Stop Date Quantity Comments Source Sex Assigned At [facility] Alcohol intake 2017-07-26 2017-07-26 [facility] - 00:00:00 00:00:00 non-drinker of Medical Ce nter alcohol (finding) Cigarettes smoked 2017-07-26 2017-07-[address] [facility] - current (pack per 00:00:00 00:00:00 [facility] Center day) - Reported Cigarette 2017-07-26 2017-07-[address] [facility] - pack-years 00:00:00 00:00:00 [facility] Tobacco use and 2017-07-26 2017-07-26 Current user JYOTI Oliver - exposure 00:00:00 00:00:00 [facility] Smoking Status Start Date Stop Date Source Current every day smoker 2017-07-26 00:00:00 [facility] Medications This patient has no known medications. Procedures This patient has no known procedures. Results Test Description Test Time Test Comments Results Result Comments Source POCT-GLUCOSE METER 2017-07-28 16:59:00 Test Item Value Reference Range Interpretation Comme nts POC-GLUCOSE METER (BEAKER) (test 138 mg/dL 70-110 H TESTED AT [facility] [address] code = 1538) [place] [address] POCT-GLUCOSE [id number] 11:48:00 Test Item Value Reference Range Interpretation Comments POC-GLUCOSE METER 114 mg/dL 70-110 H TESTED AT [facility] [address] (BEAKER) (test code [facility] = 1538) [place] [address] POCT-GLUCOSE [id number] 20:55:00 Test Item Value Reference Range Interpretation Comments POC-GLUCOSE METER 206 mg/dL 70-110 H TESTED AT [facility] [address] (BEAKER) (test code [facility] = 1538) [place] [address] POCT-GLUCOSE [id number] 17:00:00 Test Item Value Reference Range Interpretation Comments POC-GLUCOSE METER 270 mg/dL 70-110 H TESTED AT [facility] [address] (BEAKER) (test code [facility] = 1538) [place] [address] POCT-GLUCOSE [id number] 11:43:00 Test Item Value Reference Range Interpretation Comments POC-GLUCOSE METER 145 mg/dL 70-110 H TESTED AT [facility] [address] (BEAKER) (test code [facility] = 1538) [place] [address] CREATINE KINASE (CK), TOTAL AND [id number] 05:59:00 Test Item Value Reference Range Interpretation [...] acute neurological disease, and persistent tachyarrhythmia.COMPREHENSIVE METABOLIC [id number] 05:50:00 Test Item Value Reference Range Interpretation [...] DATA T O CALCULATE ESTIM ATED GFR. [id number] 05:49:00 Test Item Value Reference Range Interpretation Comments MAGNESIUM (BEAKER) (test code = 1.5 mg/dL 1.5-3.0 627) POCT-GLUCOSE [id number] 05:24:00 Test Item Value Reference Range Interpretation Comments POC-GLUCOSE METER 148 mg/dL 70-110 H TESTED AT [facility] [address] (BEAKER) (test code [facility] = 1538) [place] [address] CBC W/PLT COUNT & AUTO [id number] 05:23:00 Test Item Value Reference Range Interpretation [...] L 0.00-0.20 (test code = 417) POCT-GLUCOSE [id number] 21:22:00 Test Item Value Reference Range Interpretation Comments POC-GLUCOSE METER 127 mg/dL 70-110 H TESTED AT [facility] [address] (BEAKER) (test code [facility] = 1538) [place] [address] POCT-GLUCOSE [id number] 15:57:00 Test Item Value Reference Range Interpretation Comments POC-GLUCOSE METER 156 mg/dL 70-110 H TESTED AT [facility] [address] [address] (BEAKER) (test code [facility] = 1538) [place] [address] POCT-GLUCOSE [id number] 12:06:00 Test Item Value Reference Range Interpretation Comments POC-GLUCOSE METER 109 mg/dL 70-110 TESTED AT [facility] [address] [address] (BEAKER) (test code [facility] = 1538) [place] [address] HEMOGLOBIN [id number] 11:00:00 Test Item Value Reference Range Interpretation Comments HEMOGLOBIN A1C (BEAKER) (test code = 6.6 % 4.3-6.1 H 368) COMPREHENSIVE METABOLIC [id number] 04:45:00 Test Item Value Reference Range Interpretation [...] DATA T O CALCULATE ESTIM ATED GFR. [id number] 04:43:00 Test Item Value Reference Range Interpretation Comments MAGNESIUM (BEAKER) (test code = 1.7 mg/dL 1.5-3.0 627) CBC W/PLT COUNT & AUTO [id number] 04:16:00 Test Item Value Reference Range Interpretation [...]
[2021-03-30 00:45] LABS: Absolute Lymphocytes (CBC) 2.8 K/uL (0.7-4.9); Basophils % 1.5 % (0-1.3); Hematocrit 40.6 % (36.0-45.0); Lymphocytes % 39.1 % (15.3-44.8); MPV 10.2 fL (7.6-11.3); RBC Red Blood Cell Count 4.56 M/uL (3.86-4.86)
[2021-03-30 00:53] LABS: Protime INR 1.05
[2021-03-30 01:03] LABS: ALT/SGPT 17 U/L (12-78); AST/SGOT 8 U/L (15-37); Albumin 4.2 g/dL (3.4-5.0); Alkaline Phosphatase 73 U/L (45-117); BUN Blood Urea Nitrogen 32 mg/dL (7-18); Bicarbonate 27 mmol/L (21-32); Bilirubin Direct 0.2 mg/dL (0-0.2); Bilirubin Total 0.7 mg/dL (0.2-1.0); Glucose Level 111 mg/dL (74-106); Magnesium 2.1 mg/dL (1.8-2.4); NT PRO-BNP 603 pg/mL (<125); Potassium 3.8 mmol/L (3.5-5.1); Protein, Total 8.4 g/dL (6.4-8.2); Sodium Level 142 mmol/L (136-145); Troponin (Emerg Dept Use Only) < 0.02 ng/mL (0.0-0.045)
--- NOTE | 2021-03-30 02:44 | EDPHYS ---
Physician Documentation [facility] Name: Amber Fischer Age: 70 yrs Sex: Female : 1950 Arrival Date: 03/29/2021 Time: 19:10 Bed 2 Private MD: ED Physician Brock Tom HPI: 03/30 00:20 This 70 yrs old Black Female presents to ER via Ambulatory with complaints of Swelling mh7 of Lower Extremity. 00:20 The patient presents with pain, that is chronic, swelling. The complaints affect the mh7 left leg. Context: The problem was sustained at an unknown site, resulted from an unknown cause, the patient can fully bear weight, the patient is able to ambulate, with mild difficulty, can ambulate using a cane, Problem is a result from a previous injury: No. Onset: The symptoms/episode began/occurred 1 week(s) ago. Modifying factors: The symptoms are alleviated by nothing. the symptoms are aggravated by weight bearing. 00:27 Associated signs and symptoms: Pertinent positives: swelling, Pertinent negatives calf mh7 tenderness, fever, nausea, numbness, rash, tingling, vomiting, warmth, weakness. Treatment prior to arrival includes: over the counter medications, NSAIDS. Severity of symptoms: At their worst the symptoms were moderate, 5 day(s) ago, in the emergency department the symptoms are unchanged. The patient has experienced similar episodes in the past, several times. Historical: - Allergies: 03/29 19:23 PENICILLINS; jb4 19:23 CITRIC ACID; jb4 - Home Meds: 19:23 amlodipine oral [Active]; aspirin 81 mg Oral chew 1 tab once daily [Active]; jb4 - PMHx: 19:23 BORN WITH A HEART DEFECT; CVA; fluid retention; Hypertension; lumbar fracture; DVT; jb4 - PSHx: 19:23 double bypass; Heart stents; jb4 - Immunization history:: Adult Immunizations not up to date. - Social history:: Smoking status: Patient reports the use of cigarette tobacco products, smokes one pack cigarettes per day. Patient uses street drugs, marijuana, Patient/guardian denies using alcohol. ROS: 03/30 00:27 Constitutional: Negative for fever, chills, and weight loss, Eyes: Negative for injury, mh7 pain, redness, and discharge, ENT: Negative for injury, pain, and discharge, Neck: Negative for injury, pain, and swelling, Cardiovascular: Negative for chest pain, palpitations, and edema, Respiratory: Negative for shortness of breath, cough, wheezing, and pleuritic chest pain, Abdomen/GI: Negative for abdominal pain, nausea, vomiting, diarrhea, and constipation, Back: Negative for injury and pain, : Negative for injury, bleeding, discharge, and swelling, Skin: Negative for injury, rash, and discoloration, Neuro: Negative for headache, weakness, numbness, tingling, and seizure, Psych: Negative for depression, anxiety, suicide ideation, homicidal ideation, and hallucinations, Allergy/Immunology: Negative for hives, rash, and allergies, Endocrine: Negative for neck swelling, polydipsia, polyuria, polyphagia, and marked weight changes, Hematologic/Lymphatic: Negative for swollen nodes, abnormal bleeding, and unusual bruising. Exam: 00:27 Constitutional: This is a well developed, well nourished patient who is awake, alert, mh7 and in no acute distress. Head/Face: Normocephalic, atraumatic. Eyes: Pupils equal round and reactive to light, extra-ocular motions intact. Lids and lashes normal. Conjunctiva and sclera are non-icteric and not injected. Cornea within normal limits. Periorbital areas with no swelling, redness, or edema. Neck: Trachea midline, no thyromegaly or masses palpated, and no cervical lymphadenopathy. Supple, full range of motion without nuchal rigidity, or vertebral point tenderness. No Meningismus. Chest/axilla: Normal chest wall appearance and motion. Nontender with no deformity. No lesions are appreciated. Cardiovascular: Regular rate and rhythm with a normal S1 and S2. No gallops, murmurs, or rubs. Normal PMI, no JVD. No pulse deficits. Respiratory: Lungs have equal breath sounds bilaterally, clear to auscultation and percussion. No rales, rhonchi or wheezes noted. No increased work of breathing, no retractions or nasal flaring. Abdomen/GI: Soft, non-tender, with normal bowel sounds. No distension or tympany. No guarding or rebound. No evidence of tenderness throughout. Back: No spinal tenderness. No costovertebral tenderness. Full range of motion. Skin: Warm, dry with normal turgor. Normal color with no rashes, no lesions, and no evidence of cellulitis. 00:27 Neuro: Awake and alert, GCS 15, oriented to person, place, time, and situation. Cranial nerves II-XII grossly intact. Motor strength 5/5 in all extremities. Sensory grossly intact. Cerebellar exam normal. Normal gait. Psych: Awake, alert, with orientation to person, place and time. Behavior, mood, and affect are within normal limits. 00:27 Musculoskeletal/extremity: Extremities: noted in the left foot and ankle: swelling, ROM: intact in all extremities, Circulation is intact in all extremities. Pulses: are normal with no appreciated deficits, Perfusion: the patient is normally perfused throughout, Perfusion: the extremity is normally perfused throughout, Calf tenderness, is absent, Sensation intact. Compartment Syndrome exam of affected extremity: is normal. no numbness, no tingling, no sensation deficit, no palor, no weak pulses, Joints: the left ankle displays swelling, Weight bearing: can bear weight with assistance only, uses cane, Tendon exam: specific tendon testing normal through active and passive range of motion DVT Exam: negative Homans' sign noted on exam, no appreciated bluish discoloration, no erythema, no increased warmth, Calves: are non-tender, have equal circumference. Vital Signs: 03/29 19:19 BP 112 / 83; Pulse 65; Resp 16; Temp 97.7; Pulse Ox 100% on R/A; Weight 52.16 kg (R); jb4 Height 5 ft. 4 in. (162.56 cm) (R); Pain 10/10; 03/30 02:11 BP 140 / 52; Pulse 52; Resp 16; Pulse Ox 99% ; wh 03:00 BP 133 / 72; Pulse 50; Resp 18; Pulse Ox 100% on R/A; mg2 03/29 19:19 Body Mass Index 19.74 (52.16 kg, 162.56 cm) jb4 MDM: 02:41 Differential diagnosis: contusion, abrasion, DVT, peripheral edema. Data reviewed: [facility] vital signs, nurses notes, lab test result(s), cardiac enzymes, CBC, electrolytes, EKG, radiologic studies, plain films, ultrasound. Data interpreted: Pulse oximetry: on room air is 99 %. Interpretation: normal. Counseling: I had a detailed discussion with the patient and/or guardian regarding: the historical points, exam findings, and any diagnostic results supporting the discharge/admit diagnosis, the presence of at least one elevated blood pressure reading (>120/80) during this emergency department visit, lab results, radiology results, the need for outpatient follow up, to return to the emergency department if symptoms worsen or persist or if there are any questions or concerns that arise at home. Response to treatment: the patient's symptoms have markedly improved after treatment. 02:[address] [facility] 03/29 23:50 Order name: Basic Metabolic Panel [facility] 03/29 23:50 Order name: CBC with Diff; Complete Time: 02:10 [facility] 03/29 23:50 Order name: LFT's; Complete Time: 02: [facility] 03/29 23:50 Order name: Magnesium; Complete Time: 02: [facility] 03/29 23:50 Order name: NT PRO-BNP; Complete Time: 02: [facility] 03/29 23:50 Order name: PT-INR; Complete Time: 02: [facility] 03/29 20:20 Order name: US Extremity Venous Unilateral [facility] 03/29 23:50 Order name: Troponin (emerg Dept Use Only); Complete Time: 02:10 [facility] 03/29 23:50 Order name: XRAY Chest (1 view) [facility] 03/29 23:50 Order name: EKG; Complete Time: 23:51 [facility] 03/29 23:50 Order name: Cardiac monitoring; Complete Time: 00:30 [facility] 03/29 23:50 Order name: EKG - Nurse/Tech; Complete Time: 00:30 [facility] 03/29 23:51 Order name: Basic Metabolic Panel; Complete Time: 02:10 [facility] 03/29 23:50 Order name: IV Saline Lock; Complete Time: 00:30 [facility] 03/29 23:50 Order name: Labs collected and sent; Complete Time: 00:30 [facility] 03/29 23:50 Order name: O2 Per Protocol; Complete Time: 00:30 [facility] 03/29 23:50 Order name: O2 Sat Monitoring; Complete Time: 00:30 [facility] Administered Medications: 02:47 Drug: Eliquis (apixaban) 10 mg Route: PO; Disposition: 03/30/21 02:44 Discharged to Home. Impression: Acute embolism and thrombosis of unspecified deep veins of left lower extremity. - Condition is Stable. - Discharge Instructions: Deep Vein Thrombosis. - Prescriptions for Eliquis 5 mg Oral tablet - take 1 tablet by ORAL route 2 times per day; 60 tablet. Tramadol 50 mg Oral Tablet - take 1 tablet by ORAL route every 8 hours as needed; 12 tablet. - Medication Reconciliation Form, Thank You Letter, Antibiotic Education, Prescription Opioid Use form. - Follow up: Private Physician; When: 1 - 2 days; Reason: Worsening of condition, Recheck today's complaints, Continuance of care, Re-evaluation by your physician. - Problem is an acute exacerbation. - Symptoms have improved. Signatures: Dispatcher [employer] EDMS Francis Lawson RN RN jb4 Ivan Sandoval RN RN Johan Siddiqi RN RN mg2 Brock Tom MD MD mh7 Corrections: (The following items were deleted from the chart) 03/29 19:25 19:23 Social history: Smoking status: Patient reports the use of cigarette tobacco jb4 products, smokes one pack cigarettes per day. Patient/guardian denies using alcohol, street drugs, jb4 03/30 03:01 02:44 03/30/2021 02:44 Discharged to Home. Impression: Acute embolism and thrombosis of mg2 unspecified deep veins of left lower extremity. Condition is Stable. Forms are Medication Reconciliation Form, Thank You Letter, Antibiotic Education, Prescription Opioid Use. Follow up: Private Physician; When: 1 - 2 days; Reason: Worsening of condition, Recheck today's complaints, Continuance of care, Re-evaluation by your physician. Problem is an acute exacerbation. Symptoms have improved. mh7
--- NOTE | 2021-03-30 02:44 | ER ---
Nurse's Notes [facility] Name: Ambre Fischer Age: 70 yrs Sex: Female : 1950 Arrival Date: 03/29/2021 Time: 19:10 Bed 2 Private MD: Diagnosis: Acute embolism and thrombosis of unspecified deep veins of left lower extremity Presentation: 03/29 19:19 Chief complaint: Patient states: I have swelling in my left foot that has been going on jb4 for a week. It became painful last night. I had a blood clot in the left leg about a month and was on blood thinners. Coronavirus screen: Client denies travel out of the [place] in the last 14 days. At this time, the client does not indicate any symptoms associated with coronavirus-19. Ebola Screen: No symptoms or risks identified at this time. Initial Sepsis Screen: Does the patient meet any 2 criteria? No. Patient's initial sepsis screen is negative. Does the patient have a suspected source of infection? No. Patient's initial sepsis screen is negative. Risk Assessment: Do you want to hurt yourself or someone else? Patient reports no desire to harm self or others. Onset of symptoms was March 29, 2021. Transition of care: patient was not received from another setting of care. 19:19 Method Of Arrival: Ambulatory jb4 19:19 Acuity: LUZ MARIA 3 jb4 Historical: - Allergies: 19:23 PENICILLINS; jb4 19:23 CITRIC ACID; jb4 - Home Meds: 19:23 amlodipine oral [Active]; aspirin 81 mg Oral chew 1 tab once daily [Active]; jb4 - PMHx: 19:23 BORN WITH A HEART DEFECT; CVA; fluid retention; Hypertension; lumbar fracture; DVT; jb4 - PSHx: 19:23 double bypass; Heart stents; jb4 - Immunization history:: Adult Immunizations not up to date. - Social history:: Smoking status: Patient reports the use of cigarette tobacco products, smokes one pack cigarettes per day. Patient uses street drugs, marijuana, Patient/guardian denies using alcohol. Screenin/30 00:30 Abuse screen: Denies threats or abuse. Denies injuries from another. Nutritional wh screening: No deficits noted. Tuberculosis screening: No symptoms or risk factors identified. Fall Risk None identified. Assessment: 00:00 General: Appears in no apparent distress. Behavior is calm, cooperative, appropriate wh for age. Pain: Denies pain. Neuro: Level of Consciousness is awake, alert, obeys commands, Oriented to person, place, time, situation. Cardiovascular: Heart tones S1 S2 Edema pitting to left ankle. Respiratory: Airway is patent Respiratory effort is even, unlabored, Respiratory pattern is regular, symmetrical, Breath sounds are clear bilaterally. GI: Abdomen is flat, non-distended. : No signs and/or symptoms were reported regarding the genitourinary system. EENT: No signs and/or symptoms were reported regarding the EENT system. Derm: Skin is intact, is healthy with good turgor, Skin is pink, warm \T\ dry. normal. Musculoskeletal: Circulation, motion, and sensation intact. 02:10 Reassessment: Patient appears in no apparent distress at this time. No changes from previously documented assessment. Patient and/or family updated on plan of care and expected duration. Pain level reassessed. Patient is alert, oriented x 3, equal unlabored respirations, skin warm/dry/pink. Vital Signs: 03/29 19:19 BP 112 / 83; Pulse 65; Resp 16; Temp 97.7; Pulse Ox 100% on R/A; Weight 52.16 kg (R); jb4 Height 5 ft. 4 in. (162.56 cm) (R); Pain 10/10; 03/30 02:11 BP 140 / 52; Pulse 52; Resp 16; Pulse Ox 99% ; wh 03:00 BP 133 / 72; Pulse 50; Resp 18; Pulse Ox 100% on R/A; mg2 03/29 19:19 Body Mass Index 19.74 (52.16 kg, 162.56 cm) jb4 ED Course: 03/29 19:10 Patient arrived in ED. cf2 19:22 Triage completed. jb4 19:23 Arm band placed on right wrist. jb4 21:06 US Extremity Venous Unilateral Ltd In Process Unspecified. EDMS 23:24 Brock Tom MD is Attending Physician. mh7 23:42 Johan Siddiqi, EZIO is Primary Nurse. mg2 03/30 00:00 Inserted saline lock: 20 gauge in right antecubital area, using aseptic technique. Blood collected. 00:30 Patient has correct armband on for positive identification. Placed in gown. Bed in low wh position. Call light in reach. Side rails up X 1. threat monitoring analyst on. Pulse ox on. NIBP on. 01:20 XRAY Chest (1 view) In Process Unspecified. EDMS 03:01 No provider procedures requiring assistance completed. IV discontinued, intact, mg2 bleeding controlled, No redness/swelling at site. Pressure dressing applied. Administered Medications: 02:47 Drug: Eliquis (apixaban) 10 mg Route: PO; Outcome: 02:44 Discharge ordered by . [email or web address] 03:01 Discharged to home via wheelchair. mg2 03:01 Condition: stable 03:01 Discharge instructions given to patient, Instructed on discharge instructions, follow up and referral plans. medication usage, Demonstrated understanding of instructions, follow-up care, medications, Prescriptions given X 2. 03:01 Patient left the ED. mg2 Signatures: Dispatcher [employer] EDMS Francis Lawson RN RN jb4 Ivan Sandoval RN RN Johan Siddiqi RN RN [facility] Lory Tong cf2 Brock Tom MD MD 7 Corrections: (The following items were deleted from the chart) 03/29 19:25 19:23 Social history: Smoking status: Patient reports the use of cigarette tobacco jb4 products, smokes one pack cigarettes per day. Patient/guardian denies using alcohol, street drugs, jb4
[2021-03-30] MEDS ORDERED: APIXABAN 5 MG TABLET ONE (03:03)
[2021-03-30 03:22] VITALS: TEMP 97.7
[2021-03-30 03:25] VITALS: BP 133/72; O2SAT 100
--- NOTE | 2021-03-30 08:42 | RAD REPORT ---
EXAM DESCRIPTION: RAD - Chest Single View - 03/30/2021 1:20 am CLINICAL HISTORY: SWELLING Chest pain. COMPARISON: Chest Single View dated 08/20/2018; Chest Single View dated 07/30/2017; Chest Single View dated 07/23/2017; Chest Pa And Lat (2 Views) dated 10/11/2016 FINDINGS: Portable technique limits examination quality. The lungs are grossly clear. The heart is normal in size. No displaced fractures.Sternotomy wires. IMPRESSION: No acute intrathoracic process suspected.
--- NOTE | 2021-03-30 10:57 | RAD REPORT ---
EXAM DESCRIPTION: ADDENDUM #1 ADDENDUM: THIS REPORT CONTAINS FINDINGS THAT MAY BE CRITICAL TO PATIENT'S CARE: The findings were verbally discussed via telephone conference with KANU Chou by Dr. Leal on 9:57 PM CDT. The results were acknowledged and understood. Electronically signed by: Jose R Leal DO 03/29/2021 9:58 PM CDT End of Addendum EXAM DESCRIPTION: Extremity Venous Uni Ltd CLINICAL HISTORY: 70 years, Female, Pain;Swelling COMPARISON: None. FINDINGS: Duplex imaging of the deep venous system of left lower extremity was performed with visual ization from the common femoral veins to the popliteal veins and posterior tibial vein. Thrombus in the left mid and distal femoral vein. No compression. No focal fluid collection is identified. IMPRESSION: Left mid and distal femoral vein DVT. Electronically signed by: Jose R Leal DO 03/29/2021 9:43 PM CDT Due to temporary technical issues with the PACS/Fluency reporting system, reports are being signed by the in house radiologist without review as a courtesy to ensure prompt reporting. The interpreting r adiologist is fully responsible for the content of the report.
--- NOTE | 2021-03-31 07:25 | EKG ---
Test Date: 2021-03-30 Test Time: 00:21:27 Insurance Verification Representative: MEASUREMENT RESULTS: Intervals: Rate: 63 NM: 168 QRSD: 86 QT: 404 QTc: 413 [place]: P: NM: 168 QRS: 95 T: 36 INTERPRETIVE STATEMENTS: Normal sinus rhythm Rightward axis Cannot rule out Anterior infarct, age undetermined Abnormal ECG Compared to ECG 08/20/2018 19:08:33 Right-axis deviation now present Myocardial infarct finding now present T-wave abnormality no longer present Possible ischemia no longer present Electronically Signed On 03-31-21 07:22:19 CDT by Js Cody
== END 2021-03-30 03:01 | disposition home or self-care (01) ==
LOC: ER 19:07
DX: I82.412 Acute embolism and thrombosis of left femoral vein (principal); F17.210 Nicotine dependence, cigarettes, uncomplicated; Z95.5 Presence of coronary angioplasty implant and graft; Z95.1 Presence of aortocoronary bypass graft; Z86.73 Personal history of transient ischemic attack (TIA), and cerebral infarction without residual deficits; I10 Essential (primary) hypertension; Z86.718 Personal history of other venous thrombosis and embolism
CPT/HCPCS: 36415; 71045; 80048; 80076; 83735; 83880; 84484; 85025; 85610; 93005; 93971; 99284

== ENCOUNTER 2021-07-12 13:41 | Inpatient (IN) | payer OTHER ==
--- OUTSIDE RECORDS SUMMARY | 2021-07-12 13:44 | XMS REPORT | Continuity of Care Document ---
:1950 Author Organization [facility] t Address [address] [place] [address] Care Team Providers Name Role Phone Sharpless Primary Care Physician AZIZ Attending Clinician Unavailable AZIZ Admitting Clinician Unavailable Problems Condition Condition Condition Status Onset Resolution Last Treating Co mments Source Name Details Category Date Date Treatment Clinician Date Right Right Disease Active Overview: [facility]-[address] [facility] - infarct of infarct of 00:00: the [...] dedra 00 Center Tobacco Tobacco Disease Active [facility] abuse abuse 07-26 [facility] - [facility]: Medical 00 [place] Elevated Elevated Disease Active Overview: [facility] troponin troponin 07-26 [facility]rop was [facility] - 00:00: 0.05. Medical 00 Seen by [place] Cardiolog ist Dr. Crissy Warren--t hought to be related to CVA/pneum onia. EKG normal. Echo- trace mitral and tricuspid regurgita tion, normal right ventricul ar systolic pressure. Type 2 Type 2 Disease Active [facility] diabetes diabetes 07-26 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 disorder, disorder, without without long-term long-term current current use of use of insulin insulin Allergies, Adverse Reactions, Alerts Allergy Allergy Status Severity Reaction(s) Onset Inactive Treating Comm ents Source Name Type Date Date Clinician Ark[place] Propensi Active [facility] to 07-25 [facility] Derivati adverse 00:00: Medical ves reaction 00 [place] Penic[place] Propensi Active Hives [facility] ins [facility] to 07-25 [facility] - adverse 00:00: Medical reaction 00 [place] Family History Family Member Diagnosis Comments Start Date Stop Date Source Natural father Parkinsonism [facility] Natural mother Diabetes [facility] Social History Social Habit Start Date Stop Date Quantity Comments Source Sex Assigned At [facility] Cigarettes smoked 2017-07-26 2017-07-26 [facility] - current (pack per 00:00:00 00:00:00 [facility] day) - Reported Cigarette 2017-07-26 2017-07-26 [facility] - pack-years 00:00:00 00:00:00 [facility] Tobacco use and 2017-07-26 2017-07-26 Current user [facility] - exposure 00:00:00 00:00:00 [facility] Alcohol intake 2017-07-26 2017-07-26 Current [facility] - 00:00:00 00:00:00 non-drinker of Medical Ce nter alcohol (finding) Smoking Status Start Date Stop Date Source Current every day smoker 2017-07-26 00:00:00 [facility] Medications This patient has no known medications. Procedures This patient has no known procedures. Results Test Description Test Time Test Comments Results Result Comments Source POCT-GLUCOSE METER 2017-07-28 16:59:00 Test Item Value Reference Range Interpretation Comme nts POC-GLUCOSE METER (BEAKER) (test 138 mg/dL 70-110 H TESTED AT [facility] [address] code = 1538) [facility] [place] [address] POCT-GLUCOSE [id number] 11:48:00 Test Item Value Reference Range Interpretation Comments POC-GLUCOSE METER 114 mg/dL 70-110 H TESTED AT [facility] [address] (BEAKER) (test code [facility] = 1538) [place] [address] POCT-GLUCOSE [id number] 20:55:00 Test Item Value Reference Range Interpretation Comments POC-GLUCOSE METER 206 mg/dL 70-110 H TESTED AT [facility] [address] (BEAKER) (test code [facility] = 1538) [place] [address] POCT-GLUCOSE [id number] 17:00:00 Test Item Value Reference Range Interpretation Comments POC-GLUCOSE METER 270 mg/dL 70-110 H TESTED AT [facility] [address] (BEAKER) (test code [facility] = 1538) [place] [address] POCT-GLUCOSE [id number] 11:43:00 Test Item Value Reference Range Interpretation Comments POC-GLUCOSE METER 145 mg/dL 70-110 H TESTED AT [facility] [address] (BEAKER) (test code [facility] = 1538) [place] [address] CREATINE KINASE (CK), TOTAL AND [id number] 05:59:00 Test Item Value Reference Range Interpretation [...] acute neurological disease, and persistent tachyarrhythmia.COMPREHENSIVE METABOLIC [id number] 05:50:00 Test Item Value Reference Range Interpretation [...] DATA T O CALCULATE ESTIM ATED GFR. [id number] 05:49:00 Test Item Value Reference Range Interpretation Comments MAGNESIUM (BEAKER) (test code = 1.5 mg/dL 1.5-3.0 627) POCT-GLUCOSE [id number] 05:24:00 Test Item Value Reference Range Interpretation Comments POC-GLUCOSE METER 148 mg/dL 70-110 H TESTED AT [facility] [address] (BEAKER) (test code [facility] = 1538) [place] [address] CBC W/PLT COUNT & AUTO [id number] 05:23:00 Test Item Value Reference Range Interpretation [...] L 0.00-0.20 (test code = 417) POCT-GLUCOSE [id number] 21:22:00 Test Item Value Reference Range Interpretation Comments POC-GLUCOSE METER 127 mg/dL 70-110 H TESTED AT [facility] [address] [address] (BEAKER) (test code [facility] = 1538) [place] [address] POCT-GLUCOSE [id number] 15:57:00 Test Item Value Reference Range Interpretation Comments POC-GLUCOSE METER 156 mg/dL 70-110 H TESTED AT [facility] [address] [address] (BEAKER) (test code [facility] = 1538) [place] [address] POCT-GLUCOSE [id number] 12:06:00 Test Item Value Reference Range Interpretation Comments POC-GLUCOSE METER 109 mg/dL 70-110 TESTED AT [facility] [address] [address] (BEAKER) (test code [facility] = 1538) [place] [address] HEMOGLOBIN [id number] 11:00:00 Test Item Value Reference Range Interpretation Comments HEMOGLOBIN A1C (BEAKER) (test code = 6.6 % 4.3-6.1 H 368) COMPREHENSIVE METABOLIC [id number] 04:45:00 Test Item Value Reference Range Interpretation [...] DATA T O CALCULATE ESTIM ATED GFR. [id number] 04:43:00 Test Item Value Reference Range Interpretation Comments MAGNESIUM (BEAKER) (test code = 1.7 mg/dL 1.5-3.0 627) CBC W/PLT COUNT & AUTO [id number] 04:16:00 Test Item Value Reference Range Interpretation [...]
[2021-07-12 17:14] LABS: Absolute Lymphocytes (CBC) 2.3 K/uL (0.7-4.9); Basophils % 1.3 % (0-1.3); Hematocrit 34.7 % (36.0-45.0); Lymphocytes % 34.6 % (15.3-44.8); MPV 9.3 fL (7.6-11.3); RBC Red Blood Cell Count 3.86 M/uL (3.86-4.86)
[2021-07-12 17:19] LABS: Protime INR 1.06
[2021-07-12] MEDS ORDERED: FENTANYL CITR 100 MCG/2 ML ONE (17:25)
[2021-07-12 17:34] LABS: ALT/SGPT 37 U/L (12-78); AST/SGOT 29 U/L (15-37); Albumin 4.2 g/dL (3.4-5.0); Alkaline Phosphatase 56 U/L (45-117); BUN Blood Urea Nitrogen 58 mg/dL (7-18); Bicarbonate 22 mmol/L (21-32); Bilirubin Direct 0.2 mg/dL (0-0.2); Bilirubin Total 0.5 mg/dL (0.2-1.0); Glucose Level 83 mg/dL (74-106); Magnesium 2.5 mg/dL (1.8-2.4); NT PRO-BNP 1143 pg/mL (<125); Potassium 4.5 mmol/L (3.5-5.1); Protein, Total 8.3 g/dL (6.4-8.2); Sodium Level 136 mmol/L (136-145); Troponin (Emerg Dept Use Only) < 0.02 ng/mL (0.0-0.045)
--- NOTE | 2021-07-12 17:56 | RAD REPORT ---
EXAM DESCRIPTION: RAD - Chest Single View - 07/12/2021 4:59 pm CLINICAL HISTORY: left leg swelling, left leg pain COMPARISON: Portable March 2021 TECHNIQUE: AP portable chest image was obtained 07/12/2021 4:59 pm . FINDINGS: Lungs are clear. Interstitial pattern matches comparison. Heart and vasculature are normal . No measurable pleural effusion and no pneumothorax. No acute bony abnormality seen. No acute aortic findings suspected. IMPRESSION: No acute cardiopulmonary process. No significant change from comparison study.
--- NOTE | 2021-07-12 17:57 | RAD REPORT ---
EXAM DESCRIPTION: RAD - Foot Left 3 View - 07/12/2021 4:59 pm CLINICAL HISTORY: Pain;Swelling COMPARISON: No comparisons FINDINGS: No fracture, dislocation or periosteal reaction. IP joint space narrowing and minimal anibal inal spurring seen. No erosive components confirmed. First MTP joint space narrowing seen without abn ormal spurring erosion. Soft tissue swelling present in the mid and distal foot areas No air or foreign body in the soft tissues. IMPRESSION: Soft tissue swelling of the foot without air or foreign body. Left foot degenerative change without acute bone or joint finding.
[2021-07-12] MEDS ORDERED: MORPHINE 4 MG/ML SYR ONE (18:22)
[2021-07-12] MEDS ORDERED: NA CHLORIDE 0.9% 500 ML ONE ×2 (18:30→19:54)
--- NOTE | 2021-07-12 18:48 | RAD REPORT ---
EXAM DESCRIPTION: US - Extremity Venous Uni Ltd - 07/12/2021 6:29 pm CLINICAL HISTORY: Pain;Swelling, history of DVT COMPARISON: DVT study March 29, 2021 TECHNIQUE: Real-time sonographic evaluation of the left lower extremity deep venous system was perfo rmed. FINDINGS: Normal compressibility, flow augmentation, phasic flow and spontaneous flow are identified in the left lower extremity common femoral, popliteal and posterior tibial veins. No intraluminal fi lling defects seen in these vessels. Echogenic material with absent compression and absent identifiable flow seen in the midportion of the left femoral vein. Similar thrombus was seen on the March 29 study. No propagation suspected. No mass or abnormal fluid collections seen in the soft tissues. 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 No acute deep venous thrombosis identifiable.
--- NOTE | 2021-07-12 18:51 | RAD REPORT ---
EXAM DESCRIPTION: US - Lower Extremity Artery Uni Ltd - 07/12/2021 6:29 pm CLINICAL HISTORY: PAIN COMPARISON: No comparisons TECHNIQUE: Doppler evaluation of the left lower extremity arterial tree performed. Waveforms and kiesha ocity values were obtained along with visual inspection. FINDINGS: Monophasic waveform pattern seen in the left common femoral artery with peak systolic [place] 55 cm/second. Presence of a monophasic waveform pattern in this vessel may indicate significant flow restricting disease in the aorta or iliac vasculature. Doppler evaluation failed to identify any blood flow in the proximaland midportion of the left femora l artery. Flow was again demonstrated in the femoral artery near the adductor canal likely from colla teralized vasculature. Distal femoral artery and popliteal arteries show monophasic waveform patterns . Dorsalis pedis and posterior tibial arteries also show monophasic waveform pattern. IMPRESSION: Complete or near complete occlusion of the proximal and midportion of the left femoral a rtery with revascularization and flow demonstrated in the distal femoral artery at the adductor canal . Monophasic waveform pattern in the common femoral artery which may indicate flow restricting disease of the aorta or left iliac vasculature.
--- NOTE | 2021-07-12 19:37 | ER ---
Nurse's Notes [facility] Name: Amber Fischer Age: 70 yrs Sex: Female : 1950 Arrival Date: 07/12/2021 Time: 13:48 Bed 20 Private MD: Jj Woodward F Diagnosis: Chronic embolism and thrombosis of other specified deep vein of left lower extremity;Cellulitis of left lower limb;Acute kidney failure, unspecified Presentation: 07/12 14:16 Chief complaint: Patient states: Wound to L foot x 2-3 months that seems infected now. ss Coronavirus screen: Client denies travel out of the [place] in the last 14 days. Ebola Screen: Patient denies exposure to infectious person. Patient denies travel to an Ebola-affected area in the 21 days before illness onset. Risk Assessment: Do you want to hurt yourself or someone else? Patient reports no desire to harm self or others. Onset of symptoms is unknown. 14:16 Method Of Arrival: EMS: [facility] 14:16 Acuity: [facility] 3 ss Historical: - Allergies: 14:17 CITRIC ACID; ss 14:17 PENICILLINS; ss - PMHx: 14:17 DVT; CVA; BORN WITH A HEART DEFECT; fluid retention; Hypertension; lumbar fracture; ss - Immunization history:: Adult Immunizations up to date, Client reports having NOT received the Covid vaccine. - Social history:: Smoking status: Patient reports the use of cigarette tobacco products, smokes one pack cigarettes per day. Screenin:10 Abuse screen: Denies threats or abuse. Nutritional screening: No deficits noted. rb3 Tuberculosis screening: No symptoms or risk factors identified. Fall Risk None identified. Assessment: 16:10 General: Appears in no apparent distress. Behavior is calm, cooperative, Denies fever. rb3 Pain: Complains of pain in left foot Pain currently is 8 out of 10 on a pain scale. Neuro: Level of Consciousness is awake, alert, obeys commands, Oriented to person, place, time, situation. Cardiovascular: Patient's skin is warm and dry. Respiratory: Airway is patent Respiratory effort is even, unlabored, Respiratory pattern is regular, symmetrical. GI: No signs and/or symptoms were reported involving the gastrointestinal system. : No signs and/or symptoms were reported regarding the genitourinary system. Derm: Wound noted left great toe. Musculoskeletal: Swelling present in left foot. 17:19 Reassessment: Patient appears in no apparent distress at this time. No changes from rb3 previously documented assessment. 18:15 Reassessment: Patient appears in no apparent distress at this time. Patient and/or rb3 family updated on plan of care and expected duration. Pain level reassessed. Patient is alert, oriented x 3, equal unlabored respirations, skin warm/dry/pink. 07/13 00:24 Reassessment: report to ezio asher. patient to be transported upstairs. ms4 Vital Signs: 07/12 14:16 Height 5 ft. 4 in. (162.56 cm); Pain 10/10; ss 14:17 BP 95 / 42; Resp 16; Temp 98.2(TE); ss 14:18 Pulse 60; Pulse Ox 97% on R/A; ss 14:20 BP 106 / 55; ss 16:00 BP 110 / 69; Pulse 66; Resp 16; Pulse Ox 98% ; rb3 17:00 BP 121 / 69; Pulse 63; Resp 14; Pulse Ox 98% ; rb3 18:00 BP 108 / 79; Pulse 74; Resp 12; Pulse Ox 100% ; rb3 21:00 BP 90 / 56; Pulse 58; Resp 18; Pulse Ox 99% ; Pain 0/10; ms4 21:00 BP 99 / 68; Pulse 54; Resp 18; Temp 98.9; Pulse Ox 98% ; Pain 0/10; ms4 ED Course: 13:48 Patient arrived in ED. em1 14:17 Triage completed. ss 14:17 Arm band placed on right wrist. ss 16:06 Drake Chou PA is PHCP. cp 16:07 Drake Chou PA is PHCP. cp 16:07 Marty Veliz MD is Attending Physician. cp 16:10 Patient has correct armband on for positive identification. Bed in low position. Call rb3 light in reach. Side rails up X 1. Pulse ox on. NIBP on. Warm blanket given. 16:53 Priyanka Wilson, EZIO is Primary Nurse. rb3 16:58 XRAY Chest (1 view) In Process Unspecified. EDMS 16:58 XRAY Foot LEFT 3 View In Process Unspecified. EDMS 16:59 Inserted saline lock: 22 gauge in right antecubital area, using aseptic technique. rb3 Blood collected. 18:29 US Extremity Venous Unilateral Ltd In Process Unspecified. EDMS 18:29 US LE Artery Uni Ltd In Process Unspecified. EDMS 19:24 Jj Woodward MD is Private Physician. cp 19:34 Jj Woodward MD is Hospitalizing Provider. cp Administered Medications: 17:10 Drug: fentaNYL (PF) 25 mcg Route: IVP; Site: right antecubital; rb3 18:05 Not Given (provider changed orderr): Ativan (LORazepam) 0.5 mg IVP once rb3 18:06 Drug: NS 0.9% 500 ml Route: IV; Rate: 500 ml/hr; Site: right antecubital; rb3 18:06 Drug: morphine 4 mg Route: IVP; Site: right antecubital; rb3 18:22 Follow up: Response: No adverse reaction; Pain is decreased rb3 19:04 CANCELLED (Duplicate Order): morphine 4 mg IVP once; RASS on ADMIN: Combtv4, Very rb3 Agttd3, Agttd2, Rstlss1, AlertClm0, Drwsy-1, Lt Sdtn-2, Mod Sdtn-3, Dp Sdtn-4, UnArsble-5 19:32 Drug: ceFAZolin 1 grams Volume: 50 ml; Route: IVPB; Infused Over: 30 mins; Site: right ms4 forearm; 19:42 Follow up: Response: No adverse reaction ms4 23:59 Follow up: IV Intake: 50ml ms4 19:32 Drug: NS 0.9% 500 ml Route: IV; Rate: bolus; Site: right antecubital; ms4 19:42 Follow up: Response: No adverse reaction ms4 23:59 Follow up: Response: No adverse reaction; IV Intake: 500ml ms4 20:33 Drug: vancoMYCIN 1 grams Route: IVPB; Infused Over: 2 hrs; Site: right antecubital; ms4 23:59 Follow up: Response: No adverse reaction; IV Intake: 250ml ms4 Intake: 23:59 IV: 500ml; Total: 500ml. ms4 23:59 IV: 50ml; Total: 550ml. ms4 23:59 IV: 250ml; Total: 800ml. ms4 Outcome: 19:36 Decision to Hospitalize by Provider. cp 07/13 00:43 Patient left the ED. ms4 Signatures: Dispatcher [employer] Alexey Mills Shelby, RN RN Drake Celeste PA PA cp Barber, Rebecca, RN RN rb3 Perla Melendrez RN RN ms4 Corrections: (The following items were deleted from the chart) 07/12 19:15 18:55 CORONAVIRUS+MR.LAB.BRZ drawn and sent. rb3 BLANCA
--- NOTE | 2021-07-12 19:37 | EDPHYS ---
Physician Documentation [facility] Name: Amber Fischer Age: 70 yrs Sex: Female : 1950 Arrival Date: 07/12/2021 Time: 13:48 Bed 20 Private MD: Jj Woodward F ED Physician Marty Veliz HPI: 07/12 16:20 This 70 yrs old Black Female presents to ER via EMS with complaints of Puncture Wound cp To Foot. 16:20 The patient presents with swelling. The complaints affect the left leg. Context: cp resulted from an unknown cause. 16:20 Onset: The symptoms/episode began/occurred 3 month(s) ago. cp 16:20 Associated signs and symptoms: Pertinent positives: calf tenderness, swelling, cp Pertinent negatives: fever. Historical: - Allergies: 14:17 CITRIC ACID; ss 14:17 PENICILLINS; ss - PMHx: 14:17 DVT; CVA; BORN WITH A HEART DEFECT; fluid retention; Hypertension; lumbar fracture; ss - Immunization history:: Adult Immunizations up to date, Client reports having NOT received the Covid vaccine. - Social history:: Smoking status: Patient reports the use of cigarette tobacco products, smokes one pack cigarettes per day. ROS: 16:30 Constitutional: Negative for body aches, chills, fever, poor PO intake. cp 16:30 Eyes: Negative for injury, pain, redness, and discharge. cp 16:30 ENT: Negative for ear pain, sore throat, difficulty swallowing, difficulty handling secretions. 16:30 Cardiovascular: Negative for chest pain, palpitations. 16:30 Respiratory: Negative for cough, shortness of breath, wheezing. 16:30 Abdomen/GI: Negative for abdominal pain, nausea, vomiting, and diarrhea. 16:30 MS/extremity: Positive for pain, swelling, tenderness, of the left foot and left lower leg, Negative for paresthesias. Exam: 16:33 Constitutional: The patient appears in no acute distress, alert, awake, cp non-diaphoretic, non-toxic, well developed, well nourished, uncomfortable. 16:33 Head/Face: Normocephalic, atraumatic. cp 16:33 Eyes: Periorbital structures: appear normal, Conjunctiva: normal, no exudate, no injection, Sclera: no appreciated abnormality, Lids and lashes: appear normal, bilaterally. 16:33 ENT: External ear(s): are unremarkable, Nose: is normal, Mouth: Lips: moist, Oral mucosa: moist, Posterior pharynx: Airway: no evidence of obstruction, patent. 16:33 Neck: ROM/movement: is normal, is supple, without pain, no range of motions limitations. 16:33 Chest/axilla: Inspection: normal, Palpation: is normal, no crepitus, no tenderness. 16:33 Cardiovascular: Rate: normal, Rhythm: regular, Edema: pedal edema, that is moderate, noted left foot, ankle edema, that is moderate, noted to left ankle, JVD: is not appreciated. 16:33 Respiratory: the patient does not display signs of respiratory distress, Respirations: normal, no use of accessory muscles, no retractions, labored breathing, Breath sounds: are clear throughout, no decreased breath sounds, no stridor, no wheezing. 16:33 Abdomen/GI: Inspection: abdomen appears normal, Palpation: abdomen is soft and non-tender, in all quadrants. 16:33 Back: pain, that is severe, of the low back area. 16:33 Musculoskeletal/extremity: Extremities: grossly normal except: noted in the left foot and left lower leg: pain, swelling, tenderness. 16:33 Skin: cellulitis, that is moderate, on the left foot, injury, abrasion(s), moderate sized abrasion noted, of the dorsum of left great toe. 16:33 Neuro: Orientation: to person, place \T\ time. Mentation: is normal, Motor: moves all fours, strength is normal. 18:47 ECG was reviewed by the Attending Physician. cp Vital Signs: 14:16 Height 5 ft. 4 in. (162.56 cm); Pain 10/10; ss 14:17 BP 95 / 42; Resp 16; Temp 98.2(TE); ss 14:18 Pulse 60; Pulse Ox 97% on R/A; ss 14:20 BP 106 / 55; ss 16:00 BP 110 / 69; Pulse 66; Resp 16; Pulse Ox 98% ; rb3 17:00 BP 121 / 69; Pulse 63; Resp 14; Pulse Ox 98% ; rb3 18:00 BP 108 / 79; Pulse 74; Resp 12; Pulse Ox 100% ; rb3 21:00 BP 90 / 56; Pulse 58; Resp 18; Pulse Ox 99% ; Pain 0/10; ms4 21:00 BP 99 / 68; Pulse 54; Resp 18; Temp 98.9; Pulse Ox 98% ; Pain 0/10; ms4 MDM: 16:10 Patient medically screened. cp 17:00 Differential diagnosis: cellulitis, abscess, osteomyelitis, acute on chronic DVT, cp electrolyte abnormality, kidney failure. 19:05 Data reviewed: vital signs, nurses notes, lab test result(s), EKG, radiologic studies, cp plain films, ultrasound, I have discussed the patient's presentation/case with the attending Emergency Department Physician;. 19:05 Test interpretation: by ED physician or midlevel provider: ECG, plain radiologic cp studies. Counseling: I had a detailed discussion with the patient and/or guardian regarding: the historical points, exam findings, and any diagnostic results supporting the discharge/admit diagnosis, lab results, radiology results, the need for further work-up and treatment in the hospital. Response to treatment: the patient's symptoms have mildly improved after treatment. 19:35 Physician consultation: Jj Woodward MD was called at 19:30, was contacted at 19:30, regarding admission, to the telemetry unit. patient's condition, and will see patient in ED, shortly. 08 16:16 Order name: Basic Metabolic Panel 08/ 16:16 Order name: CBC with Diff cp 08/12 16:16 Order name: LFT's cp 08/ 16:16 Order name: Magnesium cp 08/ 16:16 Order name: NT PRO-BNP cp 08/ 16:16 Order name: PT-INR; Complete Time: 18:02 cp 08/12 16:16 Order name: Troponin (emerg Dept Use Only); Complete Time: 18:02 cp 08/ 16:16 Order name: CRP; Complete Time: 18:02 cp 08/ 18:02 Interpretation: Abnormal: C-REACTIVE PROT 33.70. cp 08/12 16:16 Order name: Sed Rate; Complete Time: 18:02 cp 08/12 18:02 Interpretation: Abnormal: SED 34. cp / 16:16 Order name: Procalcitonin; Complete Time: 18:02 cp / 16:16 Order name: Blood Culture Adult (2) 08/ 16:16 Order name: Lactate; Complete Time: 18:02 08/ 18:03 Interpretation: Abnormal: LAC 1.1. 08/ 16:16 Order name: Urine Microscopic Only 08/ 16:16 Order name: Basic Metabolic Panel; Complete Time: 18:02 EDMS 08 18:03 Interpretation: Normal except: CL 110; BUN 58; CRE 3.59; GFR 15. 08/ 16:16 Order name: XRAY Chest (1 view); Complete Time: 18:02 08/ 16:16 Order name: US Extremity Venous Unilateral Ltd; Complete Time: 18:57 08/ 18:57 Interpretation: Report reviewed. 08/ 16:16 Order name: CBC with Automated Diff; Complete Time: 18:02 EDMS 08 18:02 Interpretation: Normal except: HGB 11.7; HCT 34.7. 08/ 16:16 Order name: Liver (Hepatic) Function; Complete Time: 18:02 EDMS 07/12 16:16 Order name: Magnesium; Complete Time: 18:02 EDMS 07/12 16:16 Order name: NT PRO-BNP; Complete Time: 18:02 EDMS 08 17:09 Order name: Glucose, Ancillary Testing; Complete Time: 18:02 EDMS 08 20:15 Order name: SARS-COV-2 RT PCR EDMS 08 20:25 Order name: Vancomycin Peak EDMS 08 20:25 Order name: Basic Metabolic Panel EDMS 08 20:25 Order name: Basic Metabolic Panel EDMS 08 20:26 Order name: Vancomycin Level Trough EDMS 07/12 20:26 Order name: CBC with Automated Diff EDMS 07/12 20:26 Order name: CBC with Automated Diff EDMS 07/13 00:23 Order name: Glucose, Ancillary Testing EDMS 07/12 16:16 Order name: EKG; Complete Time: 16:17 / 16:16 Order name: Cardiac monitoring 07/12 16:16 Order name: EKG - Nurse/Tech 07/12 16:16 Order name: IV Saline Lock; Complete Time: 16:54 / 16:16 Order name: Labs collected and sent; Complete Time: 16:54 07/12 16:16 Order name: O2 Per Protocol; Complete Time: 16:54 cp 0812 16:16 Order name: O2 Sat Monitoring; Complete Time: 16:54 cp 07/12 16:16 Order name: LE Artery Uni Ltd; Complete Time: 18:57 cp 07/12 16:16 Order name: XRAY Foot LEFT 3 View; Complete Time: 18:02 cp 07/12 20:26 Order name: Heart Healthy EDMS EC:47 Rate is 56 beats/min. Rhythm is regular. MT interval is normal. QRS interval is normal. cp QT interval is normal. Interpreted by me. Reviewed by me. Administered Medications: 17:10 Drug: fentaNYL (PF) 25 mcg Route: IVP; Site: right antecubital; rb3 18:05 Not Given (provider changed orderr): Ativan (LORazepam) 0.5 mg IVP once rb3 18:06 Drug: NS 0.9% 500 ml Route: IV; Rate: 500 ml/hr; Site: right antecubital; rb3 18:06 Drug: morphine 4 mg Route: IVP; Site: right antecubital; rb3 18:22 Follow up: Response: No adverse reaction; Pain is decreased rb3 19:04 CANCELLED (Duplicate Order): morphine 4 mg IVP once; RASS on ADMIN: Combtv4, Very rb3 Agttd3, Agttd2, Rstlss1, AlertClm0, Drwsy-1, Lt Sdtn-2, Mod Sdtn-3, Dp Sdtn-4, UnArsble-5 19:32 Drug: ceFAZolin 1 grams Volume: 50 ml; Route: IVPB; Infused Over: 30 mins; Site: right ms4 forearm; 19:42 Follow up: Response: No adverse reaction ms4 23:59 Follow up: IV Intake: 50ml ms4 19:32 Drug: NS 0.9% 500 ml Route: IV; Rate: bolus; Site: right antecubital; ms4 19:42 Follow up: Response: No adverse reaction ms4 23:59 Follow up: Response: No adverse reaction; IV Intake: 500ml ms4 20:33 Drug: vancoMYCIN 1 grams Route: IVPB; Infused Over: 2 hrs; Site: right antecubital; ms4 23:59 Follow up: Response: No adverse reaction; IV Intake: 250ml ms4 Disposition: 07/13 07:51 Co-signature as Attending Physician, Marty Veliz MD I agree with the assessment and kdr plan of care. Disposition Summary: 07/12/21 19:36 Hospitalization Ordered Hospitalization Status: Inpatient Admission cp Provider: Jj Woodward cp Location: Telemetry/MedSurg (Inpatient) cp Condition: Stable cp Problem: new cp Symptoms: have improved cp Bed/Room Type: Standard cp Room Assignment: 209(07/12/21 23:47) tt3 Diagnosis - Chronic embolism and thrombosis of other specified deep vein of left lower extremitycp - Cellulitis of left lower limb cp - Acute kidney failure, unspecified cp Discharge Instructions: - Discharge Summary Sheet rb3 Forms: - Medication Reconciliation Form cp - SBAR form rb3 Signatures: Dispatcher [employer] EDMarty Cleaning MD MD kdr Brittny Cr, EZIO RN rDake Celeste PA PA cp Beny Mcgee tt3 Priyanka Wilson RN RN rb3 Perla Melendrez RN RN ms4 Corrections: (The following items were deleted from the chart) 07/12 19:04 18:06 morphine 4 mg IVP once; RASS on ADMIN: Combtv4, Very Agttd3, Agttd2, Rstlss1, rb3 AlertClm0, Drwsy-1, Lt Sdtn-2, Mod Sdtn-3, Dp Sdtn-4, UnArsble-5 ordered. cp 19:15 18:17 CORONAVIRUS+MR.LAB.BRZ ordered. EDDC EDMS 23:47 19:36 cp tt3
[2021-07-12] MEDS ORDERED: NA CHLORIDE 0.9% 250 ML ONE (19:50)
[2021-07-12] MEDS ORDERED: VANCOMYCIN 1 GM/VIAL ONE (19:50)
[2021-07-12] MEDS ORDERED: NA CHLORIDE 0.9% 50 ML ONE (19:56)
[2021-07-12] MEDS ORDERED: CEFAZOLIN SODIUM 1 GM/VIAL ONE (19:56)
[2021-07-12] MEDS ORDERED: ACETAMINOPHEN 500 MG TAB PO PRN (20:17)
[2021-07-12] MEDS ORDERED: ONDANSETRON 4 MG/2 ML VIAL IV PRN (20:17)
[2021-07-12] MEDS ORDERED: CEFEPIME 1 GM/VIAL IV SCH (21:00)
[2021-07-13] MEDS ORDERED: CEFEPIME/SWI 1gm 10 ML IVP SCH (00:30)
[2021-07-13] MEDS: NA CHLORIDE 0.9% 1,000 ML IV SCH ×3 (01:17→13:29)
[2021-07-13] MEDS: APIXABAN 2.5 MG TABLET PO SCH ×3 (01:17→21:10)
[2021-07-13 01:25] VITALS: BMI 21.9
[2021-07-13] MEDS: MORPHINE 2 MG/ML SYR IV PRN ×3 (04:30→18:05)
[2021-07-13 06:24] LABS: Absolute Lymphocytes (CBC) 2.6 K/uL (0.7-4.9); Basophils % 0.9 % (0-1.3); Hematocrit 27.2 % (36.0-45.0); Lymphocytes % 39.3 % (15.3-44.8); RBC Red Blood Cell Count 3.03 M/uL (3.86-4.86)
[2021-07-13 06:40] LABS: Potassium 4.6 mmol/L (3.5-5.1)
--- NOTE | 2021-07-13 11:49 | CON ---
Date of Consultation: 07/13/2021 Reason For Consultation: Chest pain. History Of Present Illness: A 70-year-old female who comes in because of a foot pain and swelling an d known to have history of coronary artery disease, status post double bypass in the past. She repor estuardo having chest pain on and off. Last time, she had it about 2 days ago. Currently is a smoker, ab out 1 pack per day. No active chest pain. Past Medical History: Coronary artery disease, hypertension, CVA, and DVT. Medications: Refer reconciliation sheet for detailed list. Allergies: CITRIC ACID AND PENICILLIN. Family History: No premature coronary artery disease or cancer. Social History: She is a smoker, pack per day. Does not drink, use any drugs. Review of Systems: All systems reviewed and they were negative except mentioned in HPI. Physical Examination: Vital Signs: Reviewed. Temperature is 97.0, pulse 59, breathing 15, blood pressure 118/57, satting 97%. General: Pleasant elderly female, in no distress. Head and Neck: Pupils are equal, reactive to light. Intact eye movements. No JVD. No cervical lym phadenopathy. Neck: Supple. Thyroid not enlarged. Lungs: Clear to auscultation bilaterally. No rhonchi, rales, or crackles. No accessory muscle use. Heart: Regular rate and rhythm. No extra sounds. Abdomen: Soft, nontender. Bowel sounds positive. No organomegaly. No masses or hernia. No rigidi ty or rebound. Extremities: No clubbing, cyanosis, edema of the foot. Neurologic: Alert, awake, oriented x3. No acute focal deficits appreciated. Investigations: Creatinine is 2.82. down from 3.5. Hemoglobin 11.6. Venous Doppler, left lower ext remity, chronic DVT. No acute DVT. Assessment And Recommendations: 1.Chest pain. The patient is known to have history of coronary artery disease. Please trend tropon in 2 more sets. If that is negative, the patient can be released from the standpoint and have a stre ss test as an outpatient. 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 Recommend anticoagulation with Eliquis 2. 5 mg twice a day. Thank you for the consult. /DONAL Voice ID: [id number] Report ID: [id number]
[2021-07-13] MEDS ORDERED: TRAMADOL HCL 50 MG TAB PO PRN (12:03)
--- NOTE | 2021-07-13 14:59 | RAD REPORT ---
EXAM DESCRIPTION: US - Renal Ultrasound-Complete - 07/13/2021 1:49 pm CLINICAL HISTORY: isra COMPARISON: MRA Abdomen W/Wo Cont dated 07/02/2017 FINDINGS: The right kidney is asymmetrically small. And 11 millimeter left renal cyst is noted. This was also present on the MRI from 07/02/2017. No hydronephrosis. The echotexture is normal. The right kidney measures 5.7 cm. No hydronephrosis, focal mass or perinephric fluid. The left kidney measures 9.7. No hydronephrosis, focal mass or perinephric fluid. The urinary bladder is incompletely distended without gross abnormality seen. IMPRESSION: Asymmetrically small right kidney and small left renal cyst. No hydronephrosis.
[2021-07-13] MEDS: HYDRALAZINE HCL 25 MG TABLET PO SCH (21:10)
--- NOTE | 2021-07-13 22:14 | CON ---
Date of Consultation: 07/13/2021 Chief Complaint: Acute on chronic kidney injury. The patient has underlying chronic kidney disease stage 3. Previous baseline in 2018 showed creatinine ranging from 1.1 to 1.3. In 2020, creatinine level was 1.8 and up to 2. The patient when came to the hospital has creatinine over 3 and slightly improved since yesterday. History Of Present Illness: The patient is a 70-year-old female who came to the hospital because of foot pain, swelling, redness. She has history of coronary artery disease, status post double bypass in past. The patient was reporting chest pain, intermittent in nature, localized to the substernal area. The patient is active smoker and smokes 1 pack per day. The patient denies history of kidney stones. On arrival to the hospital, sodium was 136, potassium 4.5, chloride 110, CO2 22, BUN 58, creatinine 3.59, glucose 83, magnesium 2.5, phosphorus was pending and today creatinine level is 2.8, BUN 50, sodium 141, potassium is 4.6, chloride 118, CO2 20, calcium 8.2. Renal ultrasound was ordered to rule out obstructive uropathy. Right kidney is 5.7 cm in length. No hydronephrosis. Left kidney is 9.7 cm in length. Medically small right kidney and small left renal cyst was present. No hydronephrosis. Plan is to check renal artery Doppler in the setting of smaller right kidney. Review of Systems: General: The patient denies fever or chills. Eyes: Denies vision changes. Ears, Nose, Mouth, and Throat: Denies sore throat, earache. Respiratory: The patient denies PND or orthopnea. Cardiovascular: Denies chest pain, palpitation, syncope. She has had chest pain prior to this admission. Currently, she denies any chest pain. Neurological: Denies numbness, tingling. Denies dizziness. : Denies dysuria, hematuria, incomplete voiding. All other systems reviewed and all are negative. Past Medical History: Coronary artery disease, hypertension, hyperlipidemia, chronic kidney disease stage 3. The patient was found to have DVT and started on anticoagulation. Physical Examination: General: Not in acute distress. Eyes: Anicteric sclerae. EOMI. Ears, Nose, Mouth, and Throat: Oral mucosa moist. No pallor. Neck: Supple. No bruits. Lungs: Diminished breath sound. Heart: S1, S2. Abdomen: Soft, benign. Extremities: Slight edema. Impression And Plan: 1. Acute on chronic kidney injury, likely the patient has prerenal azotemia. Plan is to check urinalysis to rule out active urinary sediment and screen for proteinuria. 2. History of atrial fibrillation with rapid ventricular response. The patient will have further workup with Cardiology. The patient will have further workup for lower extremity possible DVT and anticoagulation. 3. Anemia. Hemoglobin level is 9.6. Platelet count is within normal limits. The patient will have iron study and iron replacement as needed. 4. Acute kidney injury. Check CK level to rule out rhabdomyolysis and screen urinalysis for active urinary sediment. Urinalysis at this point is pending. LIVE/DONAL Voice ID: [id number] Report ID: [id number] MTDD
--- NOTE | 2021-07-13 22:59 | HP ---
Date of Admission: 07/12/2021 History Of Present Illness: The patient is a 70-year-old female with history of hypertension and per ipheral vascular disease and DVT in the past. She also is noncompliant with followups and medicines, came to the emergency room with a complaint of left foot pain and swelling. The patient 2 days pat ier in my office had showed me a wound on her left big toe on the dorsal surface. She said she kind of like slipped and her foot got caught with the rug at house and she had desquamation of the superfi cial skin and caused her wound. This happened about 10 days before her visit to me. She was feeling okay until she started feeling some ache and pain with no discharge from that big toe wound. I star estuardo her on oral antibiotics as an outpatient; however, her pain and swelling in the big toe started t o extend to where she came to the emergency room. She was found to have expanding cellulitis along w ith other medical problems including worsening of her chronic renal failure and she was in worsening acute renal failure. We went ahead and admitted the patient. Review of Systems: Cardiovascular: No complaints. Genitourinary: No complaints. Skeletomuscular: As above. Neurological: No complaint. Respiratory: No complaint. Gastrointestinal: No complaint. Past Medical History: 1.Hypertension. 2.History of DVT in the past, for which she was on Eliquis. 3.Chronic renal insufficiency. 4.Peripheral vascular disease. 5.The patient has had a CVA in the past with no residual at this time. Family History: Noncontributing. Social History: Smoker of 1 pack a day. No alcohol or IV drug abuse. Medications: Include Eliquis 5 mg p.o. b.i.d., amlodipine 10 mg p.o. daily, hydralazine 25 mg p.o. b .i.d., and losartan 100 mg p.o. daily. Allergies: PENICILLINS AND CITRIC ACID. Physical Examination: Vital Signs: Blood pressure 118/56, pulse 60, temperature 97, room air at 93% pulse oximetry. Heart: Regular rate and rhythm. Chest: Clear to auscultation. Abdomen: Soft, benign, nontender. Bowel sounds are active. Extremities: Left foot shows dorsal surface superficial wound covered with a black scab with erythem a expanding around it and swelling of the left foot mildly. The patient had good refill on pressure of her blood vessels in that foot. Peripheral pulses faint, but the left dorsalis pedis was faintly felt. Neurological: Alert, oriented, grossly intact. Imaging: Chest x-ray, no acute pathology. Venous Doppler showed old DVT. Arterial vascular study s howed complete or near-complete occlusion of proximal and midportion over the left femoral artery wit h revascularization and also the common femoral artery had monophasic waves and indicate some flow re striction of the aorta of left tibia. Laboratory Data: Hemoglobin 9.6, hematocrit 27.2, platelets 209. 34. Chemistry, BUN 58, dropped down to 50, and creatinine 3.59, dropped down to 2.82. Prolactin is 0.11. The rest of her chemistry is noted. Assessment And Plan: 1.Left foot cellulitis, expanding, failed home treatment. The patient is being admitted and put her on vancomycin and cefepime IV. 2.Acute renal failure on chronic worsened renal failure. We have asked Nephrology to see the patien t for that and also I have lowered on her daily Eliquis dosage from 5 mg b.i.d. to 2.5 mg b.i.d. efrain use of her renal failure. 3.Peripheral vascular disease with possible some intervention could be done for her on the left side of her vasculature. That is why, we have asked Cardiology to see the patient. 4.Hypertension. We will continue her home medicines. 5.Left foot pain. We will put her on oral tramadol. Look orders for details. MFS/MODL Voice ID: [id number]
[2021-07-14] MEDS: NA CHLORIDE 0.9% 1,000 ML IV SCH ×3 (00:33→22:52)
[2021-07-14] MEDS: CEFEPIME/SWI 1gm 10 ML IVP SCH (00:36)
[2021-07-14 05:47] LABS: Absolute Lymphocytes (CBC) 2.8 K/uL (0.7-4.9); Basophils % 1.1 % (0-1.3); Hematocrit 29.2 % (36.0-45.0); Lymphocytes % 39.3 % (15.3-44.8); RBC Red Blood Cell Count 3.22 M/uL (3.86-4.86)
[2021-07-14 05:57] LABS: Potassium 5.1 mmol/L (3.5-5.1)
[2021-07-14] MEDS ORDERED: VANCOMYCIN/NS 1 gm 1 GM/250 ML BAG IVPB SCH (06:00)
[2021-07-14] MEDS: MORPHINE 2 MG/ML SYR IV PRN ×4 (06:21→22:51)
[2021-07-14] MEDS: HYDRALAZINE HCL 25 MG TABLET PO SCH ×2 (08:27→21:14)
[2021-07-14] MEDS: APIXABAN 2.5 MG TABLET PO SCH ×2 (08:27→21:14)
[2021-07-14] MEDS: AMLODIPINE 10 MG TAB PO SCH (08:27)
[2021-07-14] MEDS ORDERED: hydroCHLOROthiazide 12.5 MG CAP PO SCH (09:00)
[2021-07-14] MEDS ORDERED: LOSARTAN POTASSIUM 50 MG TABLET PO SCH (09:00)
[2021-07-14 19:24] LABS: Troponin I 0.02 ng/mL (0.0-0.045)
--- NOTE | 2021-07-14 20:51 | PN ---
Subjective: The patient is doing well. No new complaint. Objective: Vital Signs: Blood pressure 102/50, pulse 64, temperature 98.5, room air pulse oximetry 99. Heart: Regular rate and rhythm. Chest: Clear to auscultation. Abdomen: Soft, benign. Neurological examination: Alert, oriented, grossly intact. Skin: The left foot showed decreased erythema and swelling. Laboratory Data: CBC; white cell count of 7.10, hemoglobin 9.6, hematocrit 29.2, platelets 207, BUN 34, creatinine 1.93, GFR 31. Assessment And Plan: 1.Left foot cellulitis, improving on current antibiotics. 2.Acute renal failure on top of chronic, improving. 3.Anemia of chronic illness, stable hemoglobin. 4.Rest of medical problems, stable. We will continue current treatment. Expect discharge in 1-2 days. Nephrology has seen the patient, appreciate their input and will follow the recommendations also. Cardiology had seen the patient. Chantell oconnell recommended to continue Eliquis 2.5 b.i.d. as far as her troponin and we will follow up their rec ommendations. Look orders for details. MFS/MODL Voice ID: [id number] Report ID: [id number]
[2021-07-14] MEDS ORDERED: SOD POLYSTYREN SUL 15 GM/60 ML UCUP PO ONE (21:31)
[2021-07-14 22:32] LABS: Potassium 5.3 mmol/L (3.5-5.1)
--- NOTE | 2021-07-14 22:36 | PN ---
Date of Progress Note: 07/13/2021 Chief Complaint: Acute on chronic kidney injury, nonoliguric. History Of Present Illness: The patient has underlying chronic kidney disease stage 3. Previous bas giovani in 2007 showed creatinine ranging from 1.1 to 1.3. In 2019, creatinine was up to 1.8 and also up to 2. The patient came to the hospital because of leg pain. She was found to have cellulitis. H er creatinine was over 3. The patient was taking angiotensin receptor amada because of acute kidne y injury. BUN was 58 and creatinine 3.59. Electrolytes as follows: Sodium 136, potassium 4.5, chlo ride 110, CO2 22, glucose 83. The patient responded to IV fluids and renal function is gradually sta bilizing. The patient does not have uremic symptomatology. Renal ultrasound was ordered to rule out obstructive uropathy. Right kidney was 5.7 cm in length. No hydronephrosis. Left kidney was 9.7 c m in length. Review of Systems: Denies fever or chills. Physical Examination: Lungs: Clear to auscultation bilaterally. Heart: S1, S2. Abdomen: Soft, benign. Extremities: No edema. Impression And Plan: 1.Acute on chronic kidney injury. The patient developed prerenal azotemia, nonoliguric. Again, cr n is to check urinalysis to rule out any evidence of active urinary sediment and to continue to scree n for proteinuria. 2.History of atrial fibrillation with rapid ventricular response. The patient will have further wor kup with Cardiology. 3.Lower extremity cellulitis. Continue antibiotics. Adjust antibiotic dose to renal dose. 4.Acute kidney injury. Monitor CK level to rule out rhabdomyolysis. EB/MODL Voice ID: [id number] Report ID: [id number]
[2021-07-15] MEDS: CEFEPIME/SWI 1gm 10 ML IVP SCH (00:59)
[2021-07-15 05:42] LABS: Absolute Lymphocytes (CBC) 2.3 K/uL (0.7-4.9); Basophils % 1.1 % (0-1.3); Hematocrit 29.2 % (36.0-45.0); Lymphocytes % 30.8 % (15.3-44.8); MPV 9.2 fL (7.6-11.3); RBC Red Blood Cell Count 3.22 M/uL (3.86-4.86)
[2021-07-15 05:52] LABS: Potassium 4.6 mmol/L (3.5-5.1)
[2021-07-15] MEDS: MORPHINE 2 MG/ML SYR IV PRN ×4 (06:37→21:27)
[2021-07-15] MEDS: NA CHLORIDE 0.9% 1,000 ML IV SCH (09:00)
[2021-07-15] MEDS: AMLODIPINE 10 MG TAB PO SCH (09:18)
[2021-07-15] MEDS: APIXABAN 2.5 MG TABLET PO SCH ×2 (09:18→21:26)
[2021-07-15] MEDS: HYDRALAZINE HCL 25 MG TABLET PO SCH ×2 (09:18→21:26)
--- NOTE | 2021-07-15 11:47 | PN ---
Subjective: The patient has no new complaints. Objective: Vital Signs: Blood pressure is 121/67, pulse 69, temperature 97.9. Heart: Regular rate and rhythm. Chest: Clear to auscultation. Abdomen: Soft, benign. Neurological: Alert and oriented. Grossly intact. Extremities: Left foot swelling and redness, significantly less. Laboratory Data: White cell count 7.6, hemoglobin 9.7, hematocrit 29.2, and platelets 234, BUN 22, c reatinine 1.36, GFR 47. Assessment And Plan: 1.Left foot cellulitis, clinically improving. Continue current antibiotics. 2.Acute renal failure on top of chronic, significant improvement. The patient is about to be close to her baseline from that standpoint. 3.Atrial fibrillation, chronic, controlled rate. 4.Rest of her medical problems stable. Expect discharge in 1 to 2 days. MFS/MODL Voice ID: [id number] Report ID: [id number]
[2021-07-15] MEDS ORDERED: VANCOMYCIN/NS 1 gm 1 GM/250 ML BAG IVPB SCH (18:00)
--- NOTE | 2021-07-15 20:48 | PN ---
Date of Progress Note: 07/15/2021 Chief Complaint: Complaining of acute on chronic kidney injury. History Of Present Illness: The patient has chronic kidney disease stage 3. Baseline creatinine lev el previously was ranging from 1.2 to 1.3. Creatinine in 2019 was 1.8 at least on 1 occasion and inc reased to 2. During this admission, the patient was found to have acute kidney injury in the setting hypovolemia and renal hypoperfusion. The patient was found to have creatinine over 3 and was starte d on IV fluids. Angiotensin receptor amada was stopped. There was no evidence of obstructive urop athy. The patient does not have history of nephritis. The patient had ultrasound done and right kidney was 5.7 cm in length and the left kidney was 9.7 cm in length. Review of Systems: Denies fever, chills. Physical Examination: Lungs: Clear to auscultation bilaterally. Heart: S1, S2. Abdomen: Soft, benign. Extremities: No edema. Impression And Plan: 1.Acute on chronic kidney injury. The patient developed prerenal azotemia, nonoliguric, acute tubul ar necrosis. Plan is to check urinalysis to rule out any evidence of active urinary sedimentation. We will follow up outpatient with county engineer and continue to screen for proteinuria. The patient do es not have significant proteinuria. 2.History of atrial fibrillation. 3.with rapid ventricular response. We will follow up with Cardiology. 4.Lower extremity cellulitis. Continue antibiotics. there was no evidence of rhabdomyol ysis. EB/MODL Voice ID: [id number] Report ID: [id number]
[2021-07-16] MEDS: CEFEPIME/SWI 1gm 10 ML IVP SCH (01:22)
[2021-07-16 05:35] LABS: Absolute Lymphocytes (CBC) 2.8 K/uL (0.7-4.9); Basophils % 1.3 % (0-1.3); Hematocrit 26.4 % (36.0-45.0); RBC Red Blood Cell Count 2.94 M/uL (3.86-4.86)
[2021-07-16 05:51] LABS: Potassium 3.8 mmol/L (3.5-5.1)
[2021-07-16] MEDS: APIXABAN 2.5 MG TABLET PO SCH (08:24)
[2021-07-16] MEDS: AMLODIPINE 10 MG TAB PO SCH (08:24)
[2021-07-16] MEDS: MORPHINE 2 MG/ML SYR IV PRN (08:24)
[2021-07-16] MEDS: HYDRALAZINE HCL 25 MG TABLET PO SCH (08:25)
[2021-07-16 10:23] VITALS: O2SAT 99
[2021-07-16 11:59] VITALS: BP 115/56; TEMP 98
[2021-07-16] MEDS ORDERED: VANCOMYCIN/NS 1 gm 1 GM/250 ML BAG IVPB SCH (18:00)
--- NOTE | 2021-07-16 20:35 | PN ---
Date of Progress Note: 07/16/2021 Ms. Amado Bee, came in initially with renal failure, atypical chest pain, DVT, acute on chronic kidn ey injury. Has had a history of atrial fibrillation and anemia. She is in sinus rhythm now. Hemogl obin is stable. Creatinine is 1.13. She is asymptomatic. I am comfortable with her going home when ever it is okay with Dr. Woodward on her present regimen. I will make an appointment as an outpatient for her to have an echocardiogram and a Lexiscan because of her atypical chest pain. ADAM/DNOAL Voice ID: [id number] Report ID: [id number]
--- NOTE | 2021-07-17 11:30 | DS ---
Date of Discharge: 07/16/2021 History Of Present Illness: A 70-year-old female, who was admitted to the hospital because of left f oot cellulitis along with acute renal failure on top of chronic. Past Medical History: As per admit note. Social History: As per admit note. Family History: As per admit note. Medications: As per admit note. Allergies: PER ADMIT NOTE. Physical Examination: As per admit note. Diagnostic Data: As per admit note. Hospital Course: The patient was admitted to the hospital. She was put on IV vancomycin and IV cefe pime for her cellulitis. We also consulted Nephrology for the patient's acute renal failure on top o f chronic. has seen the patient with us and followed her up. The patient continued t o do well from the standpoint of her infection and that has improved her renal failure. Her GFR toda y was up to 58 with BUN 15 and creatinine 1.13. Also, Cardiology was consulted because of the patien t's peripheral vascular disease and history of atrial fibrillation. Dr. Cody seen the patient and recommended no further intervention. We will continue the patient on the same medications. As the patient has improved and she remained afebrile and her cellulitis in her left leg has improved today where her left foot erythema has resolved along with swelling, it was thought that the patient is sta ble enough to be discharged home on doxycycline 100 mg p.o. b.i.d. for the next 7 days and the patien t to follow up with Nephrology and me. We will discharge the patient if it is okay with Nephrology. While the patient is in the hospital, we continued her on her home medicines for chronic medical illnesses. Look orders for details. MFS/MODL Voice ID: [id number] Report ID: [id number]
== END 2021-07-16 15:45 | disposition home or self-care (01) | DRG 602 ==
LOC: ER 13:41 → ERHOLD 23:35 → 2ND 07-13 00:09
PROVIDERS: ADMIT Internal Medicine; ATTEND Internal Medicine
DX: L03.116 Cellulitis of left lower limb (principal); N17.0 Acute kidney failure with tubular necrosis; I48.20 Chronic atrial fibrillation, unspecified; I73.9 Peripheral vascular disease, unspecified; I12.9 Hypertensive chronic kidney disease with stage 1 through stage 4 chronic kidney disease, or unspecified chronic kidney disease; N18.30 Chronic kidney disease, stage 3 unspecified; F17.210 Nicotine dependence, cigarettes, uncomplicated; Z86.73 Personal history of transient ischemic attack (TIA), and cerebral infarction without residual deficits; Z86.718 Personal history of other venous thrombosis and embolism; Z79.01 Long term (current) use of anticoagulants; Z20.822 Contact with and (suspected) exposure to COVID-19
CPT/HCPCS: 36415; 71045; 76770; 80048; 80076; 80202; 82550; 82947; 83605; 83735; 83880; 84145; 84156; 84484; 85025; 85610; 85652; 86140; 87040; 93005; 93926; 93971; 99284; J0690; J0692; J2270; J3010; J3370; J7030; J7040; J7050; U0003

== ENCOUNTER 2021-07-19 17:23 | Emergency (ER) | payer OTHER ==
--- OUTSIDE RECORDS SUMMARY | 2021-07-19 17:26 | XMS REPORT | Continuity of Care Document ---
:1950 Author Organization [facility] t Address [address] [place] [address] Care Team Providers Name Role Phone Sharpless Primary Care Physician AZIZ Attending Clinician Unavailable AZIZ Admitting Clinician Unavailable Problems Condition Condition Condition Status Onset Resolution Last Treating Co mments Source Name Details Category Date Date Treatment Clinician Date Right Right Disease Active Overview: [facility] acute acute 07-26 [facility] of [facility] - infarct of infarct of 00:00: [...] dedra 00 Center Tobacco Tobacco Disease Active [facility] St abuse abuse 07-26 [facility] - [facility]: [facility] 00 [facility] Elevated Elevated Disease Active Overview: [facility] troponin troponin 07-26 Trop was [facility] - 00:00: 0.05. Medical 00 Seen by [facility] Cardiolog ist Dr. Crissy Warren--t hought to be related to CVA/pneum onia. EKG normal. Echo- trace mitral and tricuspid regurgita tion, normal right ventricul ar systolic pressure. Type 2 Type [address] 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 y y disorder, disorder, without without long-term long-term current current use of use of insulin insulin Allergies, Adverse Reactions, Alerts Allergy Allergy Status Severity Reaction(s) Onset Inactive Treating Comm ents Source Name Type Date Date Clinician [place] [facility] Active [facility] And ty to 07-25 [facility] - Derivati adverse 00:00: Medical ves reaction 00 [facility] [place] [facility] Active Hives [facility] ins ty to 07-25 [facility] - adverse 00:00: Medical reaction 00 [facility] Family History Family Member Diagnosis Comments Start Date Stop Date Source Natural father Parkinsonism [facility] Natural mother Diabetes [facility] Social History Social Habit Start Date Stop Date Quantity Comments Source Sex Assigned At [facility] Cigarettes smoked 2017-07-26 2017-07-26 [facility] - current (pack per 00:00:00 00:00:00 [facility] day) - Reported Cigarette 2017-07-26 2017-07-26 [facility] - pack-years 00:00:00 00:00:00 [facility] Tobacco use and 2017-07-26 2017-07-26 Current user [facility] - exposure 00:00:00 00:00:00 [facility] Alcohol intake 2017-07-26 2017-07-26 Current [facility] - 00:00:00 00:00:00 non-drinker of Medical Ce nter alcohol (finding) Smoking Status Start Date Stop Date Source Current every day smoker 2017-07-26 00:00:00 [facility] Medications This patient has no known medications. Procedures This patient has no known procedures. Results Test Description Test Time Test Comments Results Result Comments Source POCT-GLUCOSE METER 2017-07-28 16:59:00 Test Item Value Reference Range Interpretation Comme nts POC-GLUCOSE METER (BEAKER) (test 138 mg/dL 70-110 H TESTED AT [facility] [address] code = 1538) [place] [address] POCT-GLUCOSE [id number] 11:48:00 Test Item Value Reference Range Interpretation Comments POC-GLUCOSE METER 114 mg/dL 70-110 H TESTED AT [facility] [address] (BEAKER) (test code [facility] = 1538) [place] [address] POCT-GLUCOSE [id number] 20:55:00 Test Item Value Reference Range Interpretation Comments POC-GLUCOSE METER 206 mg/dL 70-110 H TESTED AT [facility] [address] (BEAKER) (test code [facility] = 1538) [place] [address] POCT-GLUCOSE [id number] 17:00:00 Test Item Value Reference Range Interpretation Comments POC-GLUCOSE METER 270 mg/dL 70-110 H TESTED AT [facility] [address] (BEAKER) (test code [facility] = 1538) [place] [address] POCT-GLUCOSE [id number] 11:43:00 Test Item Value Reference Range Interpretation Comments POC-GLUCOSE METER 145 mg/dL 70-110 H TESTED AT [facility] [address] (BEAKER) (test code [facility] = 1538) [place] [address] CREATINE KINASE (CK), TOTAL AND [id number] 05:59:00 Test Item Value Reference Range Interpretation [...] acute neurological disease, and persistent tachyarrhythmia.COMPREHENSIVE METABOLIC [id number] 05:50:00 Test Item Value Reference Range Interpretation [...] DATA T O CALCULATE ESTIM ATED GFR. [id number] 05:49:00 Test Item Value Reference Range Interpretation Comments MAGNESIUM (BEAKER) (test code = 1.5 mg/dL 1.5-3.0 627) POCT-GLUCOSE [id number] 05:24:00 Test Item Value Reference Range Interpretation Comments POC-GLUCOSE METER 148 mg/dL 70-110 H TESTED AT [facility] [address] (BEAKER) (test code [facility] = 1538) [place] [address] CBC W/PLT COUNT & AUTO [id number] 05:23:00 Test Item Value Reference Range Interpretation [...] L 0.00-0.20 (test code = 417) POCT-GLUCOSE [id number] 21:22:00 Test Item Value Reference Range Interpretation Comments POC-GLUCOSE METER 127 mg/dL 70-110 H TESTED AT [facility] [address] (BEAKER) (test code [facility] = 1538) [place] [address] POCT-GLUCOSE [id number] 15:57:00 Test Item Value Reference Range Interpretation Comments POC-GLUCOSE METER 156 mg/dL 70-110 H TESTED AT [facility] [address] (BEAKER) (test code [facility] = 1538) [place] [address] POCT-GLUCOSE [id number] 12:06:00 Test Item Value Reference Range Interpretation Comments POC-GLUCOSE METER 109 mg/dL 70-110 TESTED AT [facility] [address] (BEAKER) (test code [facility] = 1538) [place] [address] HEMOGLOBIN [id number] 11:00:00 Test Item Value Reference Range Interpretation Comments HEMOGLOBIN A1C (BEAKER) (test code = 6.6 % 4.3-6.1 H 368) COMPREHENSIVE METABOLIC [id number] 04:45:00 Test Item Value Reference Range Interpretation [...] DATA T O CALCULATE ESTIM ATED GFR. [id number] 04:43:00 Test Item Value Reference Range Interpretation Comments MAGNESIUM (BEAKER) (test code = 1.7 mg/dL 1.5-3.0 627) CBC W/PLT COUNT & AUTO [id number] 04:16:00 Test Item Value Reference Range Interpretation [...]
--- NOTE | 2021-07-19 21:14 | ER ---
Nurse's Notes [facility] Name: Amber Fischer Age: 70 yrs Sex: Female : 1950 Arrival Date: 07/19/2021 Time: 17:29 Bed 28 Private MD: Diagnosis: Cellulitis of left lower limb;Edema, unspecified Presentation: 07/19 18:34 Chief complaint: Patient states: BLE swelling. Pt was discharged for [facility] 07/16 diagnosed with Renal Failure and cellulitis. Pt stated, " I was prescribed IV antibiotics to go home with but no way to get them.". Coronavirus screen: Client denies travel out of the [place] in the last 14 days. At this time, unable to obtain information related to travel outside the [place] At this time, the client does not indicate any symptoms associated with coronavirus-19. Ebola Screen: Patient negative for fever greater than or equal to 101.5 degrees Fahrenheit, and additional compatible Ebola Virus Disease symptoms Patient denies exposure to infectious person. Patient denies travel to an Ebola-affected area in the 21 days before illness onset. Initial Sepsis Screen: Does the patient meet any 2 criteria? No. Patient's initial sepsis screen is negative. Does the patient have a suspected source of infection? No. Patient's initial sepsis screen is negative. Risk Assessment: Do you want to hurt yourself or someone else? Patient reports no desire to harm self or others. Onset of symptoms was July 19, 2021. 18:34 Method Of Arrival: EMS: [facility] kg 18:34 Acuity: LUZ MARIA 3 kg Triage Assessment: 18:38 General: Appears in no apparent distress. Behavior is calm, cooperative, appropriate kg for age, quiet. Pain: Complains of pain in right leg and left leg. Historical: - Allergies: 18:38 PENICILLINS; kg 18:38 CITRIC ACID; kg - Home Meds: 18:38 amlodipine oral [Active]; aspirin 81 mg Oral chew 1 tab once daily [Active]; Eliquis kg 2.5 mg oral tab 1 tab 2 times per day [Active]; atorvastatin 10 mg oral tab [Active]; hydrochlorothiazide oral [Active]; hydralazine 25 mg Oral tab 1 tab [Active]; - PMHx: 18:38 BORN WITH A HEART DEFECT; CVA; DVT; fluid retention; Hypertension; lumbar fracture; kg - PSHx: 18:38 CABG; Cardiac stent; kg - Immunization history:: Adult Immunizations not up to date, Client reports having NOT received the Covid vaccine. - Social history:: Smoking status: Patient reports the use of cigarette tobacco products, smokes one pack cigarettes per day. Screenin:42 Abuse screen: Denies threats or abuse. Denies injuries from another. Nutritional kg screening: No deficits noted. Tuberculosis screening: No symptoms or risk factors identified. Fall Risk None identified. Assessment: 21:43 Reassessment: Patient appears in no apparent distress at this time. General: Appears lh3 Behavior is calm, cooperative, appropriate for age. Vital Signs: 18:34 BP 129 / 74; Pulse 73; Resp 20; Temp 97.9(TE); Pulse Ox 97% on R/A; Weight 58.51 kg kg (R); Height 5 ft. 4 in. (162.56 cm) (R); Pain 10/10; 21:42 Pulse 72; Resp 18; Pulse Ox 98% ; lh3 18:34 Body Mass Index 22.14 (58.51 kg, 162.56 cm) kg ED Course: 17:29 Patient arrived in ED. ds1 18:38 Triage completed. kg 18:38 Arm band placed on left wrist. kg 18:42 Patient has correct armband on for positive identification. kg 20:51 Robbie Johnson is Attending Physician. sp3 21:42 Sofia Escamilla, RN is Primary Nurse. lh3 21:43 No provider procedures requiring assistance completed. Patient did not have IV access lh3 during this emergency room visit. Administered Medications: 21:36 CANCELLED (Physician Discretion): traMADol 25 mg PO once; RASS on ADMIN: Combtv4, Very sp3 Agttd3, Agttd2, Rstlss1, AlertClm0, Drwsy-1, Lt Sdtn-2, Mod Sdtn-3, Dp Sdtn-4, UnArsble-5 21:42 Drug: Ultracet 37.5 mg-325 mg 1 caps Route: PO; lh3 21:42 Follow up: Response: No adverse reaction lh3 Outcome: 21:13 Discharge ordered by . sp3 21:43 Discharged to home ambulatory. lh3 21:43 Condition: stable 21:43 Discharge instructions given to patient. 21:43 Patient left the ED. 3 Signatures: Jaclyn Mishra ds1 Linda Maria, RN RN kg Robbie Johnson sp3 Sofia Escamilla RN RN lh3 Corrections: (The following items were deleted from the chart) 18:43 18:34 Chief complaint: Patient states: BLE swelling. Pt was discharged for [facility] 07/12 diagnosed with Renal Failure and cellulitis. Pt stated, " I was prescribed IV antibiotics to go home with but no way to get them." kg
--- NOTE | 2021-07-19 21:14 | EDPHYS ---
Physician Documentation [facility] Name: Amber Fischer Age: 70 yrs Sex: Female : 1950 Arrival Date: 07/19/2021 Time: 17:29 Bed 28 Private MD: ED Physician Robbie Johnson HPI: 07/19 21:09 This 70 yrs old Black Female presents to ER via EMS with complaints of Leg Swelling, sp3 Renal Failure. 21:09 70-year-old female with a history of CVA, chronic DVT, hypertension, renal failure sp3 presents secondary to needing a prescription written from her discharge from this facility several days ago. She was sent home on doxycycline but was prescribed IV instead of p.o. in ER. She now returns for a new prescription and also asking about the mild increase in peripheral edema in her lower extremities for which she already takes hydrochlorothiazide 25 mg twice daily. Patient denies any pain or new symptoms including fever, right symptoms, chest pain, shortness breath, cough, abdominal pain, nausea, vomiting, diarrhea, neuro symptoms, any other ROS at this time.. Historical: - Allergies: 18:38 PENICILLINS; kg 18:38 CITRIC ACID; kg - Home Meds: 18:38 amlodipine oral [Active]; aspirin 81 mg Oral chew 1 tab once daily [Active]; Eliquis kg 2.5 mg oral tab 1 tab 2 times per day [Active]; atorvastatin 10 mg oral tab [Active]; hydrochlorothiazide oral [Active]; hydralazine 25 mg Oral tab 1 tab [Active]; - PMHx: 18:38 BORN WITH A HEART DEFECT; CVA; DVT; fluid retention; Hypertension; lumbar fracture; kg - PSHx: 18:38 CABG; Cardiac stent; kg - Immunization history:: Adult Immunizations not up to date, Client reports having NOT received the Covid vaccine. - Social history:: Smoking status: Patient reports the use of cigarette tobacco products, smokes one pack cigarettes per day. ROS: 21:10 Constitutional: Negative for fever, chills, and weight loss, Eyes: Negative for injury, sp3 pain, redness, and discharge, Cardiovascular: Negative for chest pain, palpitations, and edema, Respiratory: Negative for shortness of breath, cough, wheezing, and pleuritic chest pain. 21:10 Cardiovascular: Positive for edema, Mild 1+ peripheral edema pitting. 21:10 Skin: Positive for cellulitis, Chronic cellulitis that is not worse since discharge.. Exam: 21:11 Constitutional: This is a well developed, well nourished patient who is awake, alert, sp3 and in no acute distress. Head/Face: Normocephalic, atraumatic. Chest/axilla: Normal chest wall appearance and motion. Nontender with no deformity. No lesions are appreciated. Cardiovascular: Regular rate and rhythm with a normal S1 and S2. No gallops, murmurs, or rubs. Normal PMI, no JVD. No pulse deficits. Respiratory: Lungs have equal breath sounds bilaterally, clear to auscultation and percussion. No rales, rhonchi or wheezes noted. No increased work of breathing, no retractions or nasal flaring. Back: No spinal tenderness. No costovertebral tenderness. Full range of motion. 21:11 Musculoskeletal/extremity: 1+ pitting edema bilateral. No change since discharge.. 21:11 Skin: cellulitis, that is minimal, Right great toe no change since discharge.. Vital Signs: 18:34 BP 129 / 74; Pulse 73; Resp 20; Temp 97.9(TE); Pulse Ox 97% on R/A; Weight 58.51 kg kg (R); Height 5 ft. 4 in. (162.56 cm) (R); Pain 10/10; 21:42 Pulse 72; Resp 18; Pulse Ox 98% ; lh3 18:34 Body Mass Index 22.14 (58.51 kg, 162.56 cm) kg MDM: 20:51 Patient medically screened. sp3 21:12 Data reviewed: vital signs, nurses notes, old medical records. ED course: We will sp3 rewrite her doxycycline prescription to p.o. from IV. Patient told to double up on her hydrochlorothiazide for 1 day to increase in discharge of her peripheral edema. Patient has no other indications for further work-up in the ED and will be discharged at this time with follow-up to her PCP.. Administered Medications: 21:36 CANCELLED (Physician Discretion): traMADol 25 mg PO once; RASS on ADMIN: Combtv4, Very sp3 Agttd3, Agttd2, Rstlss1, AlertClm0, Drwsy-1, Lt Sdtn-2, Mod Sdtn-3, Dp Sdtn-4, UnArsble-5 21:42 Drug: Ultracet 37.5 mg-325 mg 1 caps Route: PO; lh3 21:42 Follow up: Response: No adverse reaction lh3 Disposition Summary: 07/19/21 21:13 Discharge Ordered Location: Home sp3 Condition: Stable sp3 Diagnosis - Cellulitis of left lower limb sp3 - Edema, unspecified sp3 Followup: sp3 - With: Private Physician - When: - Reason: Recheck today's complaints Discharge Instructions: - Discharge Summary Sheet sp3 - Cellulitis, Adult sp3 Forms: - Medication Reconciliation Form sp3 - Thank You Letter sp3 - Antibiotic Education sp3 - Prescription Opioid Use sp3 Prescriptions: - Doxycycline Hyclate 100 mg Oral Tablet - take 1 tablet by ORAL route every 12 hours; 20 tablet; Refills: 0, Product sp3 Selection Permitted Signatures: Linda Maria RN RN kg Robbie Johnson sp3 Sofia Escamilla RN RN 3 Corrections: (The following items were deleted from the chart) 21:36 21:29 traMADol 25 mg PO once; RASS on ADMIN: Combtv4, Very Agttd3, Agttd2, Rstlss1, sp3 AlertClm0, Drwsy-1, Lt Sdtn-2, Mod Sdtn-3, Dp Sdtn-4, UnArsble-5 ordered. sp3
[2021-07-19 21:49] VITALS: BP 129/74; TEMP 97.9
[2021-07-19 21:50] VITALS: O2SAT 98
[2021-07-19] MEDS ORDERED: TRAMADOL 37.5mg/APAP 325mg PER TAB ONE (21:59)
== END 2021-07-19 21:43 | disposition home or self-care (01) ==
LOC: ER 17:23
DX: L03.116 Cellulitis of left lower limb (principal); F17.210 Nicotine dependence, cigarettes, uncomplicated; I10 Essential (primary) hypertension; Z79.01 Long term (current) use of anticoagulants; Z79.82 Long term (current) use of aspirin; Z86.73 Personal history of transient ischemic attack (TIA), and cerebral infarction without residual deficits; Z95.1 Presence of aortocoronary bypass graft; Z95.818 Presence of other cardiac implants and grafts; Z88.0 Allergy status to penicillin; Z91.048 Other nonmedicinal substance allergy status
CPT/HCPCS: 99283

== ENCOUNTER 2021-10-08 14:20 | Inpatient (IN) | payer OTHER ==
[2021-10-08 15:33] LABS: Absolute Lymphocytes (CBC) 1.8 K/uL (0.7-4.9); Basophils % 1.1 % (0-1.3); Lymphocytes % 30.6 % (15.3-44.8); MPV 10.3 fL (7.6-11.3); RBC Red Blood Cell Count 3.97 M/uL (3.86-4.86)
[2021-10-08 15:34] LABS: Protime INR 1.12
[2021-10-08 15:47] LABS: Albumin 3.6 g/dL (3.4-5.0); Bilirubin Direct 0.2 mg/dL (0-0.2); Bilirubin Total 0.4 mg/dL (0.2-1.0); Magnesium 2.3 mg/dL (1.8-2.4); Potassium 4.6 mmol/L (3.5-5.1); Protein, Total 7.3 g/dL (6.4-8.2); Troponin (Emerg Dept Use Only) 0.2 ng/mL (0.0-0.045)
[2021-10-08] MEDS ORDERED: ASPIRIN 81 MG CHEWABLE TABLET ONE (15:55)
--- NOTE | 2021-10-08 16:07 | RAD REPORT ---
EXAM DESCRIPTION: RAD - Chest Single View - 10/08/2021 3:30 pm CLINICAL HISTORY: CHEST PAIN Chest pain. COMPARISON: Chest Single View dated 07/12/2021; Chest Single View dated 03/30/2021; Chest Single View dated 08/20/2018; Chest Single View dated 07/30/2017 FINDINGS: Portable technique limits examination quality. The lungs are grossly clear. The heart is normal in size. No displaced fractures.Sternotomy wires. IMPRESSION: No acute intrathoracic process suspected.
--- NOTE | 2021-10-08 16:13 | EDPHYS ---
Physician Documentation [facility] Name: Amber Fischer Age: 71 yrs Sex: Female : 1950 Arrival Date: 10/08/2021 Time: 14:22 Bed 19 Private MD: Jj Woodward F ED Physician Robbie Johnson HPI: 10/08 15:10 This 71 yrs old Black Female presents to ER via Wheelchair with complaints of Chest jm Pain, Foot Pain - numbness. 15:10 The patient or guardian reports chest pain that is located primarily in the substernal [facility] area. Onset: gradually, 1 week(s) ago. The pain does not radiate. Associated signs and symptoms: Pertinent negatives:. The chest pain is described as aching. Duration: The patient or guardian reports multiple episodes, that are intermittent, that wax and wane. Modifying factors: The symptoms are alleviated by rest, drinking water. The patient has not experienced similar symptoms in the past. Patient complains of left lower extremity pain and swelling along with intermittent chest pain exacerbated by exertion. Patient has a history of CAD. . Historical: - Allergies: 14:35 CITRIC ACID; aa5 14:35 PENICILLINS; aa5 - Home Meds: 18:50 amlodipine 10 mg oral tab once daily [Active]; spironolactone 25 mg Oral tab once daily aa5 [Active]; hydralazine 25 mg Oral tab 2 times per day [Active]; atorvastatin 20 mg oral tab once daily [Active]; Eliquis 5 mg oral tab 2 times per day [Active]; olmesartan 20 mg oral tab once daily [Active]; - PMHx: 14:35 BORN WITH A HEART DEFECT; CVA; DVT; fluid retention; Hypertension; lumbar fracture; aa5 - PSHx: 14:35 CABG; cardiac stent; aa5 - Immunization history:: Client reports having NOT received the Covid vaccine. - Social history:: Smoking status: Patient reports the use of cigarette tobacco products, smokes one pack cigarettes per day. ROS: 15:10 Constitutional: Negative for fever, chills, and weight loss. jmm 15:10 Respiratory: Negative for shortness of breath, cough, wheezing, and pleuritic chest pain. 15:10 Cardiovascular: Positive for chest pain. 15:10 All other systems are negative. Exam: 15:10 Constitutional: This is a well developed, well nourished patient who is awake, alert, jmm and in no acute distress. Head/Face: atraumatic. Eyes: EOMI, no conjunctival erythema appreciated ENT: Moist Mucus Membranes Neck: Trachea midline, Supple Chest/axilla: Normal chest wall appearance and motion. Cardiovascular: Regular rate and rhythm. No edema appreciated Respiratory: Normal respirations, no respiratory distress appreciated Abdomen/GI: Non distended, soft Back: Normal ROM 15:10 Musculoskeletal/extremity: erythema noted to the left lower leg, edema appreciated. 15:10 Skin: erythema noted to the left lower extremity. 15:10 Neuro: Orientation: is normal, Mentation: is normal, Memory: is normal. 15:10 Psych: Behavior/mood is pleasant, cooperative. Vital Signs: 14:34 BP 158 / 63; Pulse 61; Resp 18 S; Temp 98.3(TE); Pulse Ox 100% on R/A; Height 5 ft. 4 aa5 in. (162.56 cm) (R); 14:41 Weight 61.23 kg (M); aa5 15:00 BP 101 / 85; Pulse 62; Resp 18; Temp 98.2; Pulse Ox 100% ; sl2 16:13 BP 182 / 70; Pulse 60; Resp 16; Pulse Ox 100% on R/A; iw 17:00 BP 166 / 83; Pulse 59; Resp 18; Temp 98.2(O); Pulse Ox 100% on R/A; sl2 18:40 BP 160 / 61; Pulse 51; Resp 18; Temp 98.1(O); Pulse Ox 100% on R/A; sl2 19:50 BP 153 / 58; Pulse 50; Resp 18; Temp 98.3; Pulse Ox 98% on R/A; cc4 14:41 Body Mass Index 23.17 (61.23 kg, 162.56 cm) aa5 MDM: 15:09 Patient medically screened. jmm 16:07 The patient was given aspirin in the Emergency Department. Data reviewed: vital signs, [facility] nurses notes. Counseling: I had a detailed discussion with the patient and/or guardian regarding: the historical points, exam findings, and any diagnostic results supporting the discharge/admit diagnosis, lab results, radiology results, the need for further work-up and treatment in the hospital. ED course: I discussed the patient with Dr. Cody and Dr. Woodward whom accepted the patient for admission. Patient currently has no chest pain. . 10/08 15:10 Order name: Basic Metabolic Panel; Complete Time: 15:50 [facility] 10/08 15:10 Order name: CBC with Diff; Complete Time: 15:39 [facility] 10/08 15:10 Order name: LFT's; Complete Time: 15:50 [facility] 10/08 15:10 Order name: Magnesium; Complete Time: 15:50 [facility] 10/08 15:10 Order name: NT PRO-BNP; Complete Time: 15:50 [facility] 10/08 15:10 Order name: PT-INR; Complete Time: 15:39 [facility] 10/08 15:10 Order name: Troponin (emerg Dept Use Only); Complete Time: 15:50 [facility] 10/08 15:10 Order name: XRAY Chest (1 view); Complete Time: 16:15 [facility] 10/08 15:51 Order name: COVID-19 SARS RT PCR (Document "Date of Onset" if Symptomatic); Complete [facility] Time: 17:20 10/08 16:27 Order name: Basic Metabolic Panel [facility] 10/08 16:27 Order name: Basic Metabolic Panel [facility] 10/08 16:27 Order name: CBC with Automated Diff [facility] 10/08 16:27 Order name: CBC with Automated Diff [facility] 10/08 16:27 Order name: Troponin I; Complete Time: 19:51 [facility] 10/08 15:10 Order name: EKG; Complete Time: 15:11 [facility] 10/08 15:10 Order name: Cardiac monitoring; Complete Time: 15:18 [facility] 10/08 15:10 Order name: EKG - Nurse/Tech; Complete Time: 15:18 [facility] 10/08 15:10 Order name: IV Saline Lock; Complete Time: 15:14 [facility] 10/08 15:10 Order name: Labs collected and sent; Complete Time: 15:14 [facility] 10/08 15:10 Order name: US Extremity Venous Unilateral Ltd [facility] 10/08 16:05 Order name: Diet Heart Healthy; Complete Time: 16:06 10/08 16:26 Order name: CONS Physician Consult [facility] 10/08 16:27 Order name: EKG Electrocardiogram [facility] 10/08 16:27 Order name: EKG Electrocardiogram [facility] 10/08 16:27 Order name: EKG Electrocardiogram [facility] 10/08 16:27 Order name: EKG Electrocardiogram [facility] 10/08 16:53 Order name: US; Complete Time: 16:53 [facility] 10/08 15:10 Order name: O2 Per Protocol; Complete Time: 15:18 jm 10/08 15:10 Order name: O2 Sat Monitoring; Complete Time: 15:18 jmm Administered Medications: 16:01 Drug: Aspirin Chewable Tablet 324 mg Route: PO; iw 17:06 Follow up: Response: No adverse reaction sl2 16:21 Drug: Metoprolol 25 mg Route: PO; iw 17:05 Follow up: Response: No adverse reaction sl2 16:21 Drug: Lovenox (enoxaparin) 40 mg Route: Sub-Q; Site: right lower abdomen; iw 17:05 Follow up: Response: No adverse reaction sl2 Disposition: 10/09 09:09 Co-signature as Attending Physician, Robbie Johnson MD I agree with the assessment and sp3 plan of care. Disposition Summary: 10/08/21 16:12 Hospitalization Ordered Hospitalization Status: Inpatient Admission [facility] Provider: Jj Woodward Location: Telemetry/MedSur (Inpatient) [facility] Condition: Stable jmm Problem: new jmm Symptoms: have improved jmm Bed/Room Type: Standard [facility] Room Assignment: 211(10/08/21 18:56) bd Diagnosis - Chest pain, unspecified jmm - Non ST elevation IA m Forms: - Medication Reconciliation Form jmm - SBAR form jm Signatures: Dispatcher [employer] EDMS Marya Galarza bd Don Taylor PA PA jmm Sylvia Lai RN RN iw Vernell Manning RN RN aa5 Robbie Johnson MD MD sp3 Deborah Babin RN sl2 Corrections: (The following items were deleted from the chart) 10/08 18:56 16:12 jmm bd
--- NOTE | 2021-10-08 16:13 | ER ---
Nurse's Notes [facility] Name: Amber Fischer Age: 71 yrs Sex: Female : 1950 Arrival Date: 10/08/2021 Time: 14:22 Bed 19 Private MD: Jj Woodward F Diagnosis: Chest pain, unspecified;Non ST elevation DC Presentation: 10/08 14:34 Chief complaint: Patient states: "I have a wound on my left foot and it seems to be aa5 healing but I still have throbbing pain so I may need more antibiotics for it". Pt also c/o intermittent chest pain x 1 week ago. Coronavirus screen: At this time, the client does not indicate any symptoms associated with coronavirus-19. Ebola Screen: No symptoms or risks identified at this time. Initial Sepsis Screen: Does the patient meet any 2 criteria? No. Patient's initial sepsis screen is negative. Does the patient have a suspected source of infection? No. Patient's initial sepsis screen is negative. Risk Assessment: Do you want to hurt yourself or someone else? Patient reports no desire to harm self or others. Onset of symptoms was October 2021. 14:34 Acuity: LUZ MARIA 3 aa5 14:34 Method Of Arrival: Wheelchair aa5 Historical: - Allergies: 14:35 CITRIC ACID; aa5 14:35 PENICILLINS; aa5 - Home Meds: 18:50 amlodipine 10 mg oral tab once daily [Active]; spironolactone 25 mg Oral tab once daily aa5 [Active]; hydralazine 25 mg Oral tab 2 times per day [Active]; atorvastatin 20 mg oral tab once daily [Active]; Eliquis 5 mg oral tab 2 times per day [Active]; olmesartan 20 mg oral tab once daily [Active]; - PMHx: 14:35 BORN WITH A HEART DEFECT; CVA; DVT; fluid retention; Hypertension; lumbar fracture; aa5 - PSHx: 14:35 CABG; cardiac stent; aa5 - Immunization history:: Client reports having NOT received the Covid vaccine. - Social history:: Smoking status: Patient reports the use of cigarette tobacco products, smokes one pack cigarettes per day. Screenin:30 Abuse screen: Denies threats or abuse. Nutritional screening: No deficits noted. sl2 Tuberculosis screening: No symptoms or risk factors identified. 16:30 Fall Risk None identified. No fall in past 12 months (0 pts). No secondary diagnosis (0 sl2 pts). No IV (0 pts). Ambulatory Aid- None/Bed Rest/Nurse Assist (0 pts). Gait- Normal/Bed Rest/Wheelchair (0 pts) Mental Status- Oriented to own ability (0 pts). Total Marcial Fall Scale indicates No Risk (0-24 pts). Assessment: 14:58 Tenecteplase (TNKase) screening: Indications for treatment:. General: Appears in no sl2 apparent distress. well groomed, well developed, Behavior is calm, cooperative, Talkative . Reports Chest pain with exertion - denies chest pain at this time. Pain: Denies pain. Complains of pain in Chest Pain began Chest pain with exertion. Neuro: No deficits noted. Level of Consciousness is awake, alert, obeys commands, Oriented to person, place, time, situation, Appropriate for age Ice Skater are equal bilaterally Moves all extremities. Gait is steady, Speech is normal, Facial symmetry appears normal, Pupils are PERRLA. Cardiovascular: Reports "Patient states I have angina" she reports chest pain with exertion and pitting edema to left lower extremity. Respiratory: No deficits noted. 15:00 GI: No deficits noted. No signs and/or symptoms were reported involving the sl2 gastrointestinal system. : No deficits noted. No signs and/or symptoms were reported regarding the genitourinary system. EENT: No deficits noted. No signs and/or symptoms were reported regarding the EENT system. Derm: No deficits noted. No signs and/or symptoms reported regarding the dermatologic system. Musculoskeletal: Reports edema to left lower extremity. 17:07 Reassessment: Patient denies chest pain or discomfort at this time, currently sitting sl2 up in bed eating dinner, shows no signs of distress or discomfort, vital signs stable. Awaiting inpatient bed assignment - will continue to re-assess and monitor. Vital Signs: 14:34 BP 158 / 63; Pulse 61; Resp 18 S; Temp 98.3(TE); Pulse Ox 100% on R/A; Height 5 ft. 4 aa5 in. (162.56 cm) (R); 14:41 Weight 61.23 kg (M); aa5 15:00 BP 101 / 85; Pulse 62; Resp 18; Temp 98.2; Pulse Ox 100% ; sl2 16:13 BP 182 / 70; Pulse 60; Resp 16; Pulse Ox 100% on R/A; iw 17:00 BP 166 / 83; Pulse 59; Resp 18; Temp 98.2(O); Pulse Ox 100% on R/A; sl2 18:40 BP 160 / 61; Pulse 51; Resp 18; Temp 98.1(O); Pulse Ox 100% on R/A; sl2 19:50 BP 153 / 58; Pulse 50; Resp 18; Temp 98.3; Pulse Ox 98% on R/A; cc4 14:41 Body Mass Index 23.17 (61.23 kg, 162.56 cm) aa5 ED Course: 14:22 Patient arrived in ED. as 14:22 Jj Woodward MD is Private Physician. as 14:33 Arm band placed on. aa5 14:35 Triage completed. aa5 14:57 Deborah Babin RN is Primary Nurse. 2 15:04 Dno Taylor PA is PHCP. [facility] 15:04 Robbie Johnson MD is Attending Physician. [facility] 15:14 Initial lab(s) drawn, by ks, sent to lab. Inserted saline lock: 22 gauge in right em1 antecubital area, using aseptic technique. Blood collected. 15:30 XRAY Chest (1 view) In Process Unspecified. EDMS 16:12 Jj Woodward MD is Hospitalizing Provider. [facility] 16:30 Patient has correct armband on for positive identification. Placed in gown. Bed in low sl2 position. Call light in reach. Side rails up X2. Adult w/ patient. cardiac monitor on. Pulse ox on. NIBP on. Door closed. Noise minimized. Warm blanket given. Pillow given. 16:30 No provider procedures requiring assistance completed. Patient maintains SpO2 sl2 saturation greater than 95% on room air. 19:33 Primary Nurse role handed off by Deborah Babin, EZIO mw2 19:59 Gisele Mac RN is Primary Nurse. cc4 20:15 Patient admitted, IV remains in place. cc4 Administered Medications: 16:01 Drug: Aspirin Chewable Tablet 324 mg Route: PO; iw 17:06 Follow up: Response: No adverse reaction sl2 16:21 Drug: Metoprolol 25 mg Route: PO; iw 17:05 Follow up: Response: No adverse reaction sl2 16:21 Drug: Lovenox (enoxaparin) 40 mg Route: Sub-Q; Site: right lower abdomen; iw 17:05 Follow up: Response: No adverse reaction sl2 Outcome: 16:12 Decision to Hospitalize by Provider. jmm 20:15 Admitted to Med/surg accompanied by tech, room 211, Report called to EZIO Woodall. cc4 20:15 Condition: stable 20:15 Instructed on the need for admit, Demonstrated understanding of instructions. 20:18 Patient left the ED. cc4 Signatures: Dispatcher [employer] EDMS Don Taylor PA PA jmm Martinez, Amelia as Williams, Irene, RN RN iw Alexey Shane em1 Vernell Manning, RN RN aa5 Poli Zuniga mw2 Gisele Mac RN RN cc4 Deborah Babin RN RN sl2 Corrections: (The following items were deleted from the chart) 17:10 14:30 Fall Risk None identified. No fall in past 12 months (0 pts). No secondary sl2 diagnosis (0 pts). No IV (0 pts). Ambulatory Aid- None/Bed Rest/Nurse Assist (0 pts). Gait- Normal/Bed Rest/Wheelchair (0 pts) Mental Status- Oriented to own ability (0 pts). Total Marcial Fall Scale indicates No Risk (0-24 pts). sl2
[2021-10-08] MEDS ORDERED: METOPROLOL TAR 25 MG TAB ONE (16:17)
[2021-10-08] MEDS ORDERED: ENOXAPARIN 40 MG/0.4 ML SQ ONE (16:17)
[2021-10-08] MEDS ORDERED: ACETAMINOPHEN 500 MG TAB PO PRN (16:24)
[2021-10-08] MEDS ORDERED: ONDANSETRON 4 MG/2 ML VIAL IV PRN (16:24)
[2021-10-08] MEDS ORDERED: MORPHINE 4 MG/ML SYR IV PRN (16:24)
--- NOTE | 2021-10-08 16:51 | RAD REPORT ---
EXAM DESCRIPTION: US - Extremity Venous Uni Ltd - 10/08/2021 4:45 pm CLINICAL HISTORY: PAIN Leg swelling and edema. COMPARISON: Extremity Venous Uni Ltd dated 07/12/2021 FINDINGS: Left lower extremity venous system was interrogated with Doppler technique. Partial compre ssion of the left mid and distal femoral vein is noted compatible with old thrombus. There is no acut e DVT present. IMPRESSION: No acute DVT is suspected. Mild old thrombus is seen in the left mid and distal femoral vein.
[2021-10-09 00:19] VITALS: BMI 23.1
[2021-10-09 05:33] LABS: Absolute Lymphocytes (CBC) 2.7 K/uL (0.7-4.9); Basophils % 1.3 % (0-1.3); Lymphocytes % 52.7 % (15.3-44.8); MPV 10.7 fL (7.6-11.3); RBC Red Blood Cell Count 3.74 M/uL (3.86-4.86)
[2021-10-09 05:42] LABS: Potassium 4.5 mmol/L (3.5-5.1)
[2021-10-09 07:48] LABS: Blood Morphology Comment NOT SEEN (NOT SEEN); Platelet Estimate ADEQ
[2021-10-09] MEDS: ASPIRIN EC 81 MG TAB PO SCH (09:27)
--- NOTE | 2021-10-09 23:39 | HP ---
Date of Admission: 10/08/2021 History Of Present Illness: A 71-year-old female, who presented to my office complaining that for th e past few days, she has been having chest pain and she points to her substernal area. It will come, stay for some time, minutes to an hour, and then will resolve. She also complains of left foot pain ; however, with her complaining of chest pain like this, she was sent to the emergency room, and afte r workup, she was admitted for [id number] ME. This patient had no nausea, no vomiting. Voiced no increased shortness of breath and voiced no other complaints. Review of Systems: Cardiovascular: As above. Respiratory: No complaints. Skeletomuscular: As above. Gastrointestinal: No complaints. ENT: No complaints. Neurological: No complaints. Past Medical History: 1.Hypertension. 2.Hyperlipidemia. 3.The patient had coronary artery bypass graft in the past and also had cardiac stents placed. 4.The patient has had lumbar fracture in the past. Social History: She smokes. She says she cut down to less than half a pack a day. No alcohol or dr ug abuse history. Family History: Noncontributing. Medications: Include Norvasc 10 mg p.o. daily, Eliquis 2.5 mg p.o. b.i.d., atorvastatin 20 mg p.o. d aily, hydralazine 25 mg p.o. b.i.d., olmesartan 20 mg p.o. daily, and spironolactone 25 mg p.o. daily . Allergies: CITRIC ACID AND PENICILLIN. Physical Examination: Vital Signs: Blood pressure 140/60, pulse 54, temperature 97.9. Room air pulse oximetry at 98%. Heart: Regular rate and rhythm. Chest: Clear to auscultation. Abdomen: Soft, nontender. No hepatosplenomegaly. Bowel sounds are normoactive. Extremities: No edema or cyanosis. Peripheral pulses are felt. Neurological: Alert, oriented, nonfocal. Grossly intact. Diagnostic Studies: Chest x-ray, no acute pathology. The venous Doppler study showed no acute DVT. EKG reported to me, nonspecific changes. Laboratory Data: CBC, hemoglobin 11, hematocrit 34, platelets 163. Chemistry noted BUN 21, creatini ne 1.27, GFR of 46. Troponin 0.24. BNP 4784. Negative for COVID. Assessment And Plan: Likely unstable angina versus [id number] myocardial infarction. The tona ent is being admitted, put on telemetry, on aspirin. I have asked Cardiology to see the patient. We will continue the patient on spironolactone, olmesartan, and atorvastatin. Cardiology already seen the patient and the plan for heart catheterization, so we are holding on the Eliquis for now. Look o juma for details. NANCY/DONAL Voice ID: [id number]
[2021-10-10] MEDS ORDERED: HEPA 1000U/500MLS 2,000 UNIT/1,000 ML BAG IV ONE (06:45)
[2021-10-10] MEDS ORDERED: NA CHLORIDE 0.9% 500 ML ONE (06:45)
[2021-10-10] MEDS ORDERED: LIDOCAINE 1% 20 ML MDV ONE (06:45)
[2021-10-10] MEDS ORDERED: ATROPINE SULF 1 MG/10 ML SYR IV ONE (07:31)
[2021-10-10] MEDS ORDERED: MIDAZOLAM HCL 2 MG/2 ML INJ ONE ×2 (07:31→07:39)
[2021-10-10] MEDS ORDERED: FENTANYL CITR 100 MCG/2 ML ONE (07:31)
[2021-10-10] MEDS ORDERED: NA CHLORIDE 0.9% 0 ML ONE (07:31)
[2021-10-10] MEDS ORDERED: HYDRALAZINE HCL 20 MG/ML VIAL ONE (07:41)
[2021-10-10] MEDS ORDERED: PNEUMOCOCCAL VACCINE 0.5 ML IMVAC ONE (08:00)
[2021-10-10] MEDS ORDERED: INFLUENZA VACCINE (for 6+ mo) 0.5 ML DOSE IMVAC ONE (08:00)
[2021-10-10] MEDS ORDERED: SPIRONOLACTONE 25 MG TABLET PO SCH (09:00)
[2021-10-10] MEDS: ASPIRIN EC 81 MG TAB PO SCH (09:00)
[2021-10-10] MEDS ORDERED: VALSARTAN 80 MG TAB PO SCH (09:00)
[2021-10-10] MEDS ORDERED: ATORVASTATIN 20 MG TAB PO SCH (09:00)
[2021-10-10 10:26] VITALS: O2SAT 98
--- NOTE | 2021-10-10 11:27 | EKG ---
Test Date: 2021-10-08 Test Time: 14:46:59 Vegetable Thinner: Brian MEASUREMENT RESULTS: Intervals: Rate: 56 MS: 138 QRSD: 82 QT: 410 QTc: 395 [place]: P: -25 MS: 138 QRS: 66 T: 9 INTERPRETIVE STATEMENTS: Sinus bradycardia with premature atrial complexes Otherwise normal ECG Compared to ECG 07/12/2021 18:41:36 Atrial premature complex(es) now present Electronically Signed On 10-10-21 11:20:59 SEWING MACHINE BOBBIN WINDER by Js Cody
--- NOTE | 2021-10-10 14:19 | OP ---
Surgeon: Js Cody MD Senior Planning Manager: Juvenal David. Admitted to Dr. Woodward on 10/08/2021 with non-STEMI and brought to the culture media laboratory assistant on 10/10/2021 for a catheterization. Procedure: She underwent a left heart catheterization, selective coronary arteriogram, selective vei n graft injection, and TERRY injection. Procedure In Detail: In the culture media laboratory assistant, she was brought in as an inpatient, prepped and draped in the routine sterile fashion. Given Versed and fentanyl for sedation. A 6-Kiswahili sheath introduced in th e right common femoral artery successfully. Angio-Seal was used to close the case. Angiography ther e was normal. Rey catheter left and right were used to cannulate the coronaries. The JL4 was us ed to cannulate the left main. She had a patent left main. She had diffuse disease in the LAD and d iagonal. She had 100% occlusion of the mid to distal LAD with a patent TERRY to the LAD. She had a 9 0% OM. The LAD had gave collaterals to the PDA and posterolateral of the RCA. A JR4 catheter was us ed to cannulate the OM graft to the SVG which was 100% occluded and cannulated the TERRY which was pat ent to the LAD. We had to use a 3DRC catheter to cannulate the RCA that was completely occluded dist ally. There were no complications. Blood loss was 5 mL. The patient did receive 10 mg of hydralazi ne for hypertension. Her last pressure was 130/58 after the hydralazine. Initial pressure was 180. Blood Loss: 5 mL. Postoperative Diagnosis: Severe coronary artery disease. Plan: Plan is for medical therapy. Anesthesia: Total conscious sedation was 45 minutes. The patient had Angio-Seal done in the groin in the right common femoral artery. She will be at bedr est for 2 hours after which she can go home and I will see her in the office in the next 2 weeks. ADAM/DONAL Voice ID: [id number] Report ID: [id number]
[2021-10-10 16:59] VITALS: BP 149/67; TEMP 98
--- OUTSIDE RECORDS SUMMARY | 2021-10-13 16:29 | XMS REPORT | Continuity of Care Document ---
:1950 Author Organization [facility] t Address [address] [place] [address] Care Team Providers Name Role Phone Sharpless Primary Care Physician AZIZ Attending Clinician Unavailable AZIZ Admitting Clinician Unavailable Problems Condition Condition Condition Status Onset Resolution Last Treating Co mments Source Name Details Category Date Date Treatment Clinician Date Right Right Disease Active Overview: [facility] acute [facility] 07-26 [facility] of [facility] - infarct of infarct of 00:00: [...] dedra 00 Center Tobacco Tobacco Disease Active [facility] abuse abuse 07-26 [facility] - [facility]: Medical 00 [place] Elevated Elevated Disease Active Overview: [facility] troponin troponin 07-26 [facility]rop was [facility] - 00:00: 0.05. Medical 00 Seen by [place] Cardiolog ist Dr. Crissy Warren--t hought to be related to CVA/pneum onia. EKG normal. Echo- trace mitral and tricuspid regurgita tion, normal right ventricul ar systolic pressure. 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 disorder, disorder, without without long-term long-term current current use of use of insulin insulin Allergies, Adverse Reactions, Alerts Allergy Allergy Status Severity Reaction(s) Onset Inactive Treating Comm ents Source Name Type Date Date Clinician [place] [facility] Active [facility] to 07-25 [facility] adverse 00:00: Medical ves reaction 00 [place] [facility] [facility] Active Hives [facility] to 07-25 [facility] - adverse 00:00: Medical reaction 00 [place] [facility] Family History Family Member Diagnosis Comments Start Date Stop Date Source Natural mother Diabetes [facility] Natural father Parkinsonism [facility] Social History Social Habit Start Date Stop Date Quantity Comments Source Sex Assigned At [facility] Cigarettes smoked 2017-07-26 2017-07-26 [facility] - current (pack per 00:00:00 00:00:00 [facility] day) - Reported Cigarette 2017-07-26 2017-07-26 [facility] - pack-years 00:00:00 00:00:00 [facility] Tobacco use and 2017-07-26 2017-07-[address] [facility] - exposure 00:00:00 00:00:00 [facility] Alcohol intake 2017-07-26 2017-07-26 Current [facility] - 00:00:00 00:00:00 non-drinker of Medical Ce nter alcohol (finding) Smoking Status Start Date Stop Date Source Current every day smoker 2017-07-26 00:00:00 [facility] Medications This patient has no known medications. Procedures This patient has no known procedures. Results Test Description Test Time Test Comments Results Result Comments Source POCT-GLUCOSE METER 2017-07-28 16:59:00 Test Item Value Reference Range Interpretation Comme nts POC-GLUCOSE METER (BEAKER) (test 138 mg/dL 70-110 H TESTED AT [facility] [address] code = 1538) [facility] [address] POCT-GLUCOSE [id number] 11:48:00 Test Item Value Reference Range Interpretation Comments POC-GLUCOSE METER 114 mg/dL 70-110 H TESTED AT [facility] [address] (BEAKER) (test code [facility] = 1538) [place] [address] POCT-GLUCOSE [id number] 20:55:00 Test Item Value Reference Range Interpretation Comments POC-GLUCOSE METER 206 mg/dL 70-110 H TESTED AT [facility] [address] (BEAKER) (test code [facility] = 1538) [place] [address] POCT-GLUCOSE [id number] 17:00:00 Test Item Value Reference Range Interpretation Comments POC-GLUCOSE METER 270 mg/dL 70-110 H TESTED AT [facility] [address] (BEAKER) (test code [facility] = 1538) [place] [address] POCT-GLUCOSE [id number] 11:43:00 Test Item Value Reference Range Interpretation Comments POC-GLUCOSE METER 145 mg/dL 70-110 H TESTED AT [facility] [address] (BEAKER) (test code [facility] = 1538) [place] [address] CREATINE KINASE (CK), TOTAL AND [id number] 05:59:00 Test Item Value Reference Range Interpretation [...] acute neurological disease, and persistent tachyarrhythmia.COMPREHENSIVE METABOLIC [id number] 05:50:00 Test Item Value Reference Range Interpretation [...] DATA T O CALCULATE ESTIM ATED GFR. [id number] 05:49:00 Test Item Value Reference Range Interpretation Comments MAGNESIUM (BEAKER) (test code = 1.5 mg/dL 1.5-3.0 627) POCT-GLUCOSE [id number] 05:24:00 Test Item Value Reference Range Interpretation Comments POC-GLUCOSE METER 148 mg/dL 70-110 H TESTED AT [facility] [address] (BEAKER) (test code [facility] = 1538) [place] [address] CBC W/PLT COUNT & AUTO [id number] 05:23:00 Test Item Value Reference Range Interpretation [...] L 0.00-0.20 (test code = 417) POCT-GLUCOSE [id number] 21:22:00 Test Item Value Reference Range Interpretation Comments POC-GLUCOSE METER 127 mg/dL 70-110 H TESTED AT [facility] [address] (BEAKER) (test code [facility] = 1538) [place] [address] POCT-GLUCOSE [id number] 15:57:00 Test Item Value Reference Range Interpretation Comments POC-GLUCOSE METER 156 mg/dL 70-110 H TESTED AT [facility] [address] (BEAKER) (test code [facility] = 1538) [place] [address] POCT-GLUCOSE [id number] 12:06:00 Test Item Value Reference Range Interpretation Comments POC-GLUCOSE METER 109 mg/dL 70-110 TESTED AT [facility] [address] (BEAKER) (test code [facility] = 1538) [place] [address] HEMOGLOBIN [id number] 11:00:00 Test Item Value Reference Range Interpretation Comments HEMOGLOBIN A1C (BEAKER) (test code = 6.6 % 4.3-6.1 H 368) COMPREHENSIVE METABOLIC [id number] 04:45:00 Test Item Value Reference Range Interpretation [...] DATA T O CALCULATE ESTIM ATED GFR. [id number] 04:43:00 Test Item Value Reference Range Interpretation Comments MAGNESIUM (BEAKER) (test code = 1.7 mg/dL 1.5-3.0 627) CBC W/PLT COUNT & AUTO [id number] 04:16:00 Test Item Value Reference Range Interpretation [...]
--- NOTE | 2021-10-13 20:19 | CON ---
Date of Consultation: 10/08/2021 Reason For Consultation: Elevated troponin with non-ST elevation myocardial infarction. History Of Present Illness: Ms. Fischer is a 71-year-old black woman with a history of high blood pr essure, CVA, DVT, chronic diastolic congestive heart failure, lumbar fracture, who came in with subst ernal chest pain that has been going on for a week without any radiation. Denies any nausea, vomitin g, diaphoresis, PND, orthopnea, pedal edema, palpitations, or syncope. Her troponin was abnormal and I was consulted. Allergies: SHE IS ALLERGIC TO CITRIC ACID AND PENICILLIN. Past Medical History: Includes hypertension, dyslipidemia, history of DVT for which she takes Eliqui s. She has had CABG in the past. Review of Systems: Negative. Social History: Negative. Family History: Negative. Medications: Include amlodipine, spironolactone, hydralazine, atorvastatin, Eliquis, olmesartan. Physical Examination: Vital Signs: Stable, afebrile. HEENT: Negative. Neck: Supple with no bruit. Chest: Clear to auscultation and percussion. Cardiac: Revealed a regular rhythm and rate. No murmurs, gallops, or rubs. Abdomen: Benign. Extremities: Revealed no clubbing, cyanosis, or edema. Diagnostic Data: Showed a creatinine 1.37. Her troponin was 0.2. BNP was [address]. Impression And Plan: Non-ST elevation myocardial infarction and the patient with history of coronary artery bypass graft. I will hold the Eliquis for now. Plan a catheterization in 48 hours. The pat ient understands the risks and the benefits of the procedure. She agrees to proceed. Rest of her pr oblems were normal for now. Her blood pressure is well controlled, dyslipidemia is well controlled. Her renal function is adequate. We will keep an eye on that. The case was discussed with Dr. Woodward. ADAM/DONAL Voice ID: [id number] Report ID: [id number]
--- NOTE | 2021-10-13 20:58 | PN ---
Date of Progress Note: 10/09/2021 Ms. Fischer came in with chest pain, abnormal troponin, continued to have intermittent chest pain. H as a history of CABG. We held her Eliquis because of her plan for catheterization to be done on 10/01. The patient is hemodynamically stable. Her pain is short lasting when she does have it. Sh e remains with minimal activities. Continue her present regimen. Plan for a catheterization on 10/01. The patient understands the risk and the benefits of the procedure, and she agrees to estela MEDINA/DONAL Voice ID: [id number] Report ID: [id number]
== END 2021-10-10 18:14 | disposition home health service (06) | DRG 281 ==
LOC: ER 14:20 → ERHOLD 16:23 → 2ND 20:00
PROVIDERS: ADMIT Internal Medicine; ATTEND Internal Medicine
PROC: 4A023N7 Measurement of Cardiac Sampling and Pressure, Left Heart, Percutaneous Approach (ICD-10-PCS; principal; 2021-10-10)
PROC: B2111ZZ Fluoroscopy of Multiple Coronary Arteries using Low Osmolar Contrast (ICD-10-PCS; 2021-10-10)
PROC: B2181ZZ Fluoroscopy of Left Internal Mammary Bypass Graft using Low Osmolar Contrast (ICD-10-PCS; 2021-10-10)
DX: I21.4 Non-ST elevation (NSTEMI) myocardial infarction (principal); I50.32 Chronic diastolic (congestive) heart failure; I11.0 Hypertensive heart disease with heart failure; E78.5 Hyperlipidemia, unspecified; F17.210 Nicotine dependence, cigarettes, uncomplicated; I25.10 Atherosclerotic heart disease of native coronary artery without angina pectoris; Z88.0 Allergy status to penicillin; Z91.048 Other nonmedicinal substance allergy status; Z79.01 Long term (current) use of anticoagulants; Z79.899 Other long term (current) drug therapy; Z86.73 Personal history of transient ischemic attack (TIA), and cerebral infarction without residual deficits; Z86.718 Personal history of other venous thrombosis and embolism; Z20.822 Contact with and (suspected) exposure to COVID-19; Z95.5 Presence of coronary angioplasty implant and graft; Z95.1 Presence of aortocoronary bypass graft
CPT/HCPCS: 36415; 71045; 80048; 80076; 83735; 83880; 84484; 85025; 85610; 93005; 93455; 93971; 96372; 99285; C1760; C1893; J0360; J0583; J1644; J1650; J2250; J2405; J3010; J7040; U0003